=== PATIENT | female | born 1960 | race Two or more races ===

== ENCOUNTER 2021-04-03 14:00 | Outpatient (REF) | payer MEDICAID, SELFPAY ==
--- NOTE | ~2021-04-03 | US_ITS ---
EXAMINATION: US DIAGNOSTIC ULTRASOUND BREAST, LEFT CLINICAL INFORMATION: Left breast pain. COMPARISON: Mammography of same day. TECHNIQUE: Ultrasound of the breast is performed with real-time ramírez scale imaging and color Doppler. FINDINGS: Targeted left breast ultrasound does not demonstrate any abnormal mass lesion. No edematous change within the parenchyma is seen. No region of abnormal distal sound shadowing is seen. Results are discussed with the patient at time of visit. US/US breast LT limited IMPRESSION: No specific mammographic or ultrasound findings to suggest malignancy. ASSESSMENT: BI-RADS 1: Negative. RECOMMENDATION: Routine annual mammography screening.
--- NOTE | ~2021-04-03 | MM_ITS ---
EXAMINATION: MM DIAGNOSTIC DIGITAL BREAST TOMOSYNTHESIS, BILATERAL US BREAST TARGETED, LEFT CLINICAL INFORMATION: Left breast pain. The lifetime risk of breast cancer based on the Tyrer-Cuzick Model is 9.9%. COMPARISON: Mammography: None. TECHNIQUE: Digital breast tomosynthesis is performed in both the craniocaudal and mediolateral oblique views along with computer-aided detection (CAD). Synthesized 2-D images are generated from the tomosynthesis. Targeted left breast ultrasound. FINDINGS: There are scattered areas of fibroglandular density (ACR BI-RADS breast composition Category b). There are no significant masses, abnormal calcifications, or other abnormalities. Targeted left breast ultrasound does not demonstrate any abnormal mass lesion. No edematous change within the parenchyma is seen. No region of abnormal distal sound shadowing is seen. Results are discussed with the patient at time of visit. MM/MM tomosynthesis diagnostic BI IMPRESSION: No specific mammographic or ultrasound findings to suggest malignancy. ASSESSMENT: BI-RADS 1: Negative. RECOMMENDATION: Routine annual mammography screening. This patient's information was entered into a reminder system with a target due date for their next mammogram.
== END 2021-04-03 14:01 | disposition home or self-care (01) ==
LOC: HO.MAMMO 14:00
PROVIDERS: PCP Nurse Practitioner Family; Visit Provider Nurse Practitioner Family
DX: N64.4 Mastodynia (principal)
CPT/HCPCS: 76642; 77062; 77066

== ENCOUNTER 2022-01-20 10:04 | Outpatient (REF) | payer MEDICAID, SELFPAY ==
[2022-01-23 14:16] LABS: HPV mRNA E6/E7 rflx Not Detected (Not Detected)
== END 2022-01-20 10:05 | disposition home or self-care (01) ==
LOC: HO.LNP 10:04
PROVIDERS: PCP Nurse Practitioner Family; Visit Provider Obstetrics & Gynecology
DX: Z12.4 Encounter for screening for malignant neoplasm of cervix (principal); N95.0 Postmenopausal bleeding
CPT/HCPCS: 87624; 88142; 99202

== ENCOUNTER 2022-03-02 10:51 | Outpatient (REF) | payer MEDICAID, SELFPAY ==
--- NOTE | ~2022-03-02 | US_ITS ---
EXAMINATION: US PELVIS CLINICAL INFORMATION: Postmenopausal bleeding COMPARISON: None TECHNIQUE: Ultrasound of the pelvis is performed using both transabdominal and transvaginal transducers along with Doppler. Transvaginal imaging is performed due to inadequate visualization transabdominally. FINDINGS: UTERUS: The uterus is anteverted, anteflexed and measures 7.4 x 3.3 x 4.2 cm The double wall endometrial thickness is 0.6 cm. The uterus is smooth in contour and has normal myometrial echogenicity. No visible fibroid. There are small nabothian cysts seen in the cervix. ADNEXA: Both ovaries are visualized. There is normal color flow to the adnexa. There is no ovarian torsion. There is no pelvic ascites or fluid collection. Right ovary measures 1.8 x 1.3 x 1.1 cm and volume of1.4 mL. It appears unremarkable. Left ovary measures 2.1 x 1.3 x 1.2 cm and volume of 1.7 mL. There is trace amount of free fluid in the cul-de-sac. US/US pelvic and transvaginal IMPRESSION: 1. Small nabothian cysts in the cervix. 2. The uterus and ovaries are unremarkable. 3. There is trace amount of free fluid in the cul-de-sac.
== END 2022-03-02 10:52 | disposition home or self-care (01) ==
LOC: HO.US 10:51
PROVIDERS: Visit Provider Obstetrics & Gynecology
DX: N95.0 Postmenopausal bleeding (principal)
CPT/HCPCS: 76830; 76856

== ENCOUNTER 2022-04-05 14:08 | Outpatient (REF) | payer MEDICAID, SELFPAY ==
--- NOTE | ~2022-04-05 | MM_ITS ---
EXAMINATION: MM SCREENING DIGITAL BREAST TOMOSYNTHESIS, BILATERAL CLINICAL INFORMATION: Screening. Asymptomatic. The lifetime risk of breast cancer based on the Tyrer-Cuzick Model is 10%. COMPARISON: Mammography: 04/03/2021 (new baseline), ultrasound left breast 04/03/2021 TECHNIQUE: Digital breast tomosynthesis is performed in both the craniocaudal and mediolateral oblique views along with computer-aided detection (CAD). Synthesized 2D images are generated from the tomosynthesis. FINDINGS: There are scattered areas of fibroglandular density (ACR BI-RADS breast composition Category b). There is fine fibronodular parenchymal pattern. There is no significant mass and no architectural abnormality or abnormal calcifications. The axilla and skin contours are unremarkable. MM/MM tomosynthesis screening BI IMPRESSION: No mammographic evidence of malignancy. ASSESSMENT: BI-RADS 1: Negative RECOMMENDATION: Routine annual mammography screening. This patient's information was entered into a reminder system with a target due date for their next mammogram.
== END 2022-04-05 14:09 | disposition home or self-care (01) ==
LOC: HO.MAMMO 14:08
PROVIDERS: PCP Registered Nurse; Visit Provider Registered Nurse
DX: Z12.31 Encounter for screening mammogram for malignant neoplasm of breast (principal)
CPT/HCPCS: 77063; 77067

== ENCOUNTER 2022-04-13 12:34 | Outpatient (REF) | payer MEDICAID, SELFPAY | END 2022-04-13 12:35 | disposition home or self-care (01) | LOC: HO.LNP 12:34 | PROVIDERS: PCP Registered Nurse; Visit Provider Obstetrics & Gynecology | DX: N95.0 Postmenopausal bleeding (principal) | CPT/HCPCS: 58100; 81025; 88305; 99212 ==

== ENCOUNTER → 2022-05-18 14:09 | Outpatient (BNVA) | payer MEDICAID, SELFPAY | PROVIDERS: PCP Registered Nurse; Visit Provider Obstetrics & Gynecology | DX: N95.0 Postmenopausal bleeding (principal); Z98.890 Other specified postprocedural states | CPT/HCPCS: 99212 ==

== ENCOUNTER 2022-06-18 07:14 | Day surgery (SDC) | payer MEDICAID, SELFPAY ==
[2022-05-31 11:48] VITALS: BMI 31.2
[2022-06-18 07:20] VITALS: BMI 32.4
--- NOTE | 2022-06-18 07:26 | HO.ANESPROP2 ---
HPI - Anesthesia Eval Consult details Narrative: 62 yo female patient for D&C, Hysteroscopy. Poss polypectomy, poss myomectomy PMFSH Active Problems Active Problems: All Active Problems (Updated 01/20/22 @ 10:26 by Roberto Boyd MD) Postmenopausal bleeding (Acute) Past Medical History Medical History Depression HTN (hypertension) Pre-diabetes Family History Family History Mother Asthma HTN (hypertension) Diabetes Father Prostate cancer Family history of problems with anesthesia: No Surgical History Surgical History Hx of appendectomy History of Problems with Anesthesia: No Social History Social History Household Members Other:: mom Housing: Apartment Alcohol intake: never Patient Tobacco Use Status: Never used Tobacco Use of substances other than those prescribed or required for medical reasons: No Are you DNR?: No Advance Directives: No Advance Directives Information Provided: Yes Recently lost weight without trying: No Nutrition Risks: No Nutritional Risk Current occupational status: unemployed Sexual orientation: Straight/Heterosexual Gender identity: Female Meds Allergies Allergy/AdvReac Type Severity Reaction Status Date / Time apple Allergy Intermediate throat Verified 04/13/22 12:48 itching poe Allergy Unknown SWELLING Verified 04/13/22 12:48 plum [PLUM] Allergy Unknown THROAT Verified 04/13/22 12:48 SWELLING Home Medications Medication Instructions Recorded Confirmed Last Taken Type escitalopram oxalate 5 mg tablet 5 mg PO DAILY depressive disorder 01/20/22 06/18/22 Unknown History lisinopril 5 mg tablet 5 mg PO DAILY 01/20/22 06/18/22 06/18/22 History Exam Exam Date and Time: June 18, 2022 07 Height,Weight and Vital Signs: Height 5 ft 4 in Weight 85.729 kg Vital Signs Temp Pulse Resp BP Pulse Ox O2 Del Method 06/18/22 07:27 96.4 F L 86 16 159/77 H 97 Room Air Airway Mallampati Class: II TM Dist: >3cm Neck ROM: Full Loose/Missing/Broken Teeth: Yes (Broken, loose bottom right back) Heart: RRR Lungs: CTAB Assessment and Plan Assessment Anesthesia Assessment: Anesthesia Plan Discussed and Chart Reviewed Final Anesthetic Review Family History of Problems with Anesthesia: No History of Problems with Anesthesia: No NPO: Yes ASA Class: II Final Preanesthetic Review: No Changes in Pt Med Stat, Meds/Allgs Chart Reviewed, Consent Obtained/Reviewed and Anes Risks/Benef Reviewed Patient Risk: Low Procedure Risk: Low Assessment/Block/Sedation in SS: Assess/Block/Sedation-SS Anesthetic Plan Anesthetic Plan: GA Disposition: Standard PACU
[2022-06-18 07:27] VITALS: BP 159/77; PULSE 86; RESP 16; TEMP 35.8; O2SAT 97
[2022-06-18] MEDS: Lactated Ringers 1,000 ML 100 ML IVCONT (07:43)
--- NOTE | 2022-06-18 07:44 | MHC.SHP ---
Pre-Procedural Eval Section A Date of Service: 06/18/22 The patient is an INPATIENT: No Changes since office visit: No Cold of Flu in the past 2 weeks, No New Medical Problems, No Changes in Medication and No Patient answered all questions The History & Physical has been completed within 30 days and I have reviewed it.: Yes Section B Chief Complaint: Postmenopausal bleeding Allergies: Allergies Allergy/AdvReac Type Severity Reaction Status Date / Time apple Allergy Intermediate throat Verified 04/13/22 12:48 itching poe Allergy Unknown SWELLING Verified 04/13/22 12:48 plum [PLUM] Allergy Unknown THROAT Verified 04/13/22 12:48 SWELLING Plan Diagnosis/Plan: Unchanged I have reviewed the history and physical and performed a pertinent physical examination on my patient. No changes have occurred unless specified. Time Spent With Patient Time: Total time managing care of this patient today ____ minutes.
--- NOTE | 2022-06-18 09:13 | P.BOP_ITS ---
Brief Operative Note Date of Service: 06/18/22 Pre-op diagnosis: Postmenopausal bleeding Post-op diagnosis: same (Endometrial polyp) Procedure: Hysteroscopy D&C, Polypectomy Surgeon: Roberto Boyd MD Anesthesia: GLMA Was an Installation And Service Technician used for this Procedure?: No Estimated blood loss (mL): 0 Pathology: other (Endometrial Scrapping. Polyp) Condition: stable Disposition: PACU
--- NOTE | 2022-06-18 09:13 | W.PM.OPN ---
Operative Note Operative Note Date of Service: 06/18/22 Narrative: Preop Diagnosis: Postmenopausal bleeding Operation: Diagnostic Hysteroscopy, Dilataion & Curettage and polypectomy Post Op Diagnosis: Endometrial Polyp QBL: Minimal Anesthesia: GLMA Surgeon: Roberto Boyd MD Corporate Health Consultant: None Complication: None Pathology: Endometrial Scrapings, Endometrial polyp Procedure: The patient was put in the dorsal lithotomy position, scrubbed, and draped in the usual manner. A sterile speculum was inserted in the patient's vagina. The anterior lip of the cervix was grasped with a single tooth tenaculum. The cervix was dilated up to 5 mm, then the scope was inserted in the patient's uterus. Inspection revealed endometrial polyp. The Myosure Reach device was used; it was introduced through the operative channel and polypectomy done with no complications. The scope was then taken out from the uterine cavity, sharp curettings was carried on with minimal amount of tissues retrieved. At the end of the procedure, all instruments were taken out of the patient uterine and vaginal cavity. The single tooth tenaculum was removed and homeostasis was assured using pressure,. The patient tolerated the procedure well and was transferred to the PACU in a stable condition.
[2022-06-18 09:21] VITALS: BP 92/44; PULSE 77; RESP 8; TEMP 36.5; O2SAT 99
[2022-06-18 09:26] VITALS: BP 90/51; PULSE 71; RESP 10; O2SAT 99
[2022-06-18 09:31] VITALS: BP 98/59; PULSE 90; RESP 14; O2SAT 98
[2022-06-18 09:36] VITALS: BP 114/65; PULSE 76; RESP 14; TEMP 36.4; O2SAT 95
[2022-06-18] MEDS: Acetaminophen 325 MG TABLET 650 MG PO (09:42)
[2022-06-18 09:51] VITALS: BP 130/67; PULSE 79; RESP 16; TEMP 36.1; O2SAT 96
== END 2022-06-18 10:55 | disposition home or self-care (01) ==
PROVIDERS: PCP Registered Nurse; Visit Provider Obstetrics & Gynecology
PROC: 0UDB8ZZ Extraction of Endometrium, Via Natural or Artificial Opening Endoscopic (ICD-10-PCS; CPT 58558; principal; 2022-06-18 08:30)
DX: N95.0 Postmenopausal bleeding (principal); N84.0 Polyp of corpus uteri; F32.A Depression, unspecified; I10 Essential (primary) hypertension; R73.03 Prediabetes; Z79.899 Other long term (current) drug therapy
CPT/HCPCS: 58558; 88305; J1100; J2250; J2405; J3010

== ENCOUNTER → 2022-07-01 15:45 | Outpatient (BNVA) | payer MEDICAID, SELFPAY | PROVIDERS: PCP Registered Nurse; Visit Provider Obstetrics & Gynecology | DX: N95.0 Postmenopausal bleeding (principal) | CPT/HCPCS: 99212 ==

== ENCOUNTER 2023-03-08 16:19 | Emergency (ER) | payer OTHER, SELFPAY ==
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
[2023-03-08 16:32] VITALS: BP 163/74; PULSE 73; RESP 20; TEMP 36.4; O2SAT 98; BMI 32.6
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
== END 2023-03-08 20:23 | disposition left against medical advice (07) ==
PROVIDERS: Emergency Provider Emergency Medicine; PCP Registered Nurse
DX: Z04.1 Encounter for examination and observation following transport accident (principal); M25.562 Pain in left knee
CPT/HCPCS: 73560; 99281; 99283

== ENCOUNTER 2023-05-12 09:47 | Outpatient (REF) | payer MEDICAID, SELFPAY ==
[2023-05-12 12:15] LABS: Estimated Average Glucose 114 mg/dL; Hemoglobin A1c % 5.6 % (<6.0)
[2023-05-12 12:32] LABS: Alanine Aminotransferase 15 U/L (0-31); Albumin Level 4.2 g/dL (3.5-5.0); Alkaline Phosphatase 96 U/L (39-117); Anion Gap 14 (12-20); Aspartate Amino Transferase 17 U/L (5-31); Bilirubin Total 0.5 mg/dL (0.0-1.0); Blood Urea Nitrogen 11 mg/dL (9-16); Calcium 9.8 mg/dL (8.4-10.2); Carbon Dioxide 28 mmol/L (22-29); Chloride 106 mmol/L (96-108); Cholesterol 209 mg/dL (<200); Estimated Glomerular Filt Rate 54; Glucose Random 99 mg/dL (60-115); HDL Cholesterol 47 mg/dL (>40); LDL Cholesterol Calculated 140 mg/dL (<100); Potassium 4.7 mmol/L (3.3-5.1); Sodium 143 mmol/L (135-145); Total Protein 7.7 g/dL (6.5-8.0); Triglycerides 110 mg/dL (<150)
== END 2023-05-12 09:48 | disposition home or self-care (01) ==
LOC: HO.HHCL 09:47
PROVIDERS: Visit Provider Registered Nurse
DX: I10 Essential (primary) hypertension (principal); R73.03 Prediabetes
CPT/HCPCS: 36415; 80053; 80061; 83036

== ENCOUNTER 2023-05-30 09:18 | Outpatient (REF) | payer MEDICAID, SELFPAY ==
--- NOTE | ~2023-05-30 | XR_ITS ---
EXAMINATION: XR FOOT, LEFT CLINICAL INFORMATION: Left foot pain over the heel for 6 months COMPARISON: None available. TECHNIQUE: AP, lateral, and oblique views of the left foot. FINDINGS: BONES: Bony structures are intact. There is no focal bone destruction or periosteal reaction seen. JOINTS: There is moderate hallux valgus valgus deformity. The left first metatarsophalangeal angle is 21 degrees.. SOFT TISSUE: Soft tissue is normal. No radiopaque foreign body or abnormal air collection is seen. XR/XR foot LT min 3V IMPRESSION: 1. Moderate hallux valgus deformity. 2. No focal bone destruction or periosteal reaction is seen.
== END 2023-05-30 09:19 | disposition home or self-care (01) ==
LOC: HO.HHCX 09:18
PROVIDERS: Visit Provider Registered Nurse
DX: M79.672 Pain in left foot (principal)
CPT/HCPCS: 73630

== ENCOUNTER 2023-06-06 14:31 | Outpatient (REF) | payer MEDICAID, SELFPAY ==
--- NOTE | ~2023-06-06 | XR_ITS ---
EXAMINATION: XR LUMBAR SPINE XR KUB CLINICAL INFORMATION: Pain. Evaluate for kidney stone. Right flank pain worsening over last 3 days. COMPARISON: Renal ultrasound from 04/20/2019. TECHNIQUE: Lumbar spine, 3 views KUB, one view FINDINGS: LUMBAR SPINE: There are six nonrib-bearing vertebra of the lumbar spine. For purposes of this report, the lowest lumbar vertebra is considered to represent L5. There is facet arthropathy of L4-L5 and L5-S1 (worst on the right at L4-L5). There is mild multilevel degenerative disc space narrowing with small vertebral osteophytes of the lumbar spine, including L2-L3, L3-L4 and L4-L5. Also, there is approximately 0.2 cm of degenerative anterolisthesis of L4 on L5. Otherwise, lumbar vertebra have normal height and alignment. No vertebral compression fractures. Sacroiliac joints and sacrum are unremarkable. KUB: Bowel gas pattern is normal. No pneumoperitoneum. No evidence of renal calculi. Several small calcifications are seen within the lower pelvis. These appear to correspond to the phleboliths present on CT images from 09/11/2018. No suspicious osseous lesions. Surgical clips are seen within the right lower quadrant of the abdomen. XR/XR lumbar spine 2-3V IMPRESSION: * No evidence of renal calculi. * Normal bowel gas pattern. * Mild multilevel discovertebral degenerative change of the lumbar spine. * Facet arthropathy of the lower lumbar spine is worst on the right at L4-L5.
--- NOTE | ~2023-06-06 | XR_ITS ---
EXAMINATION: XR LUMBAR SPINE XR KUB CLINICAL INFORMATION: Pain. Evaluate for kidney stone. Right flank pain worsening over last 3 days. COMPARISON: Renal ultrasound from 04/20/2019. TECHNIQUE: Lumbar spine, 3 views KUB, one view FINDINGS: LUMBAR SPINE: There are six nonrib-bearing vertebra of the lumbar spine. For purposes of this report, the lowest lumbar vertebra is considered to represent L5. There is facet arthropathy of L4-L5 and L5-S1 (worst on the right at L4-L5). There is mild multilevel degenerative disc space narrowing with small vertebral osteophytes of the lumbar spine, including L2-L3, L3-L4 and L4-L5. Also, there is approximately 0.2 cm of degenerative anterolisthesis of L4 on L5. Otherwise, lumbar vertebra have normal height and alignment. No vertebral compression fractures. Sacroiliac joints and sacrum are unremarkable. KUB: Bowel gas pattern is normal. No pneumoperitoneum. No evidence of renal calculi. Several small calcifications are seen within the lower pelvis. These appear to correspond to the phleboliths present on CT images from 09/11/2018. No suspicious osseous lesions. Surgical clips are seen within the right lower quadrant of the abdomen. XR/XR KUB IMPRESSION: * No evidence of renal calculi. * Normal bowel gas pattern. * Mild multilevel discovertebral degenerative change of the lumbar spine. * Facet arthropathy of the lower lumbar spine is worst on the right at L4-L5.
== END 2023-06-06 14:32 | disposition home or self-care (01) ==
LOC: HO.HHCX 14:31
PROVIDERS: Visit Provider Internal Medicine
DX: M54.50 Low back pain, unspecified (principal); R35.0 Frequency of micturition; R10.9 Unspecified abdominal pain
CPT/HCPCS: 72100; 74018; 87086

== ENCOUNTER 2023-06-22 17:57 | Outpatient (REF) | payer MEDICAID, SELFPAY ==
[2023-06-22 18:41] LABS: Appearance Urine Clear; Color Urine Yellow; Glucose Urine UA Negative (Negative); Leukocyte Esterase Urine Small (1+) (Negative); Nitrite Urine Negative (Negative); PH 5.5 (5.0-9.0); Specific Gravity - Urine <= 1.005 (1.005-1.025); UMIC TRIGGER UACC YES; Urine Blood Negative (Negative); Urine Ketones Negative (Negative); Urine Protein Negative (Neg-Trace)
[2023-06-22 18:47] LABS: Bacteria Urine None Seen (None Seen); Hyaline Casts Urine 0-2 /LPF (0-2); RBC Urine 0-2 /HPF (0-2); UACC Culture Trigger YES
[2023-06-23 15:42] LABS: BV Int Neg Control Negative (Negative); BV Int Pos Control Positive (Positive)
== END 2023-06-22 17:58 | disposition home or self-care (01) ==
LOC: HO.HHCLNP 17:57
PROVIDERS: Visit Provider Registered Nurse
DX: R31.9 Hematuria, unspecified (principal)
CPT/HCPCS: 81001; 87086; 87480; 87510; 87660

== ENCOUNTER 2023-07-04 14:03 | Outpatient (REF) | payer MEDICAID, SELFPAY | END 2023-07-04 14:04 | disposition home or self-care (01) | LOC: HO.MAMMO 14:03 | PROVIDERS: PCP Registered Nurse; Visit Provider Registered Nurse | DX: Z12.31 Encounter for screening mammogram for malignant neoplasm of breast (principal) | CPT/HCPCS: 77063; 77067 ==

== ENCOUNTER → 2023-07-04 14:30 | Outpatient (BNV) | payer MEDICAID, SELFPAY | PROVIDERS: PCP Registered Nurse; Visit Provider Radiology Diagnostic Radiology | DX: Z12.31 Encounter for screening mammogram for malignant neoplasm of breast (principal) | CPT/HCPCS: 77063; 77067 ==

== ENCOUNTER 2023-07-26 13:00 | Outpatient (RCR) | payer MEDICAID, SELFPAY | END 2023-08-26 10:18 | disposition home or self-care (01) | LOC: HO.PT 13:00 | PROVIDERS: PCP Registered Nurse; Visit Provider Registered Nurse | DX: M25.551 Pain in right hip (principal) | CPT/HCPCS: 97110; 97162 ==

== ENCOUNTER 2023-09-15 10:30 | Outpatient (AMB) | payer MEDICAID, SELFPAY ==
--- NOTE | 2023-09-15 10:35 | A.OFFVIS_ITS ---
Vital Signs 09/15/23 10:42 Height 5 ft 4 in Weight 196 lb 10.437 oz BMI 33.8 BP 160/76 H Blood Pressure Location Lt brachial Position Sitting Pulse 78 Intake Visit Reasons: Colonoscopy Screening Intake Note: Patient in office today for colonoscopy screening. CC: Last colonoscopy when patient was about 39 y/o. Patient c/o constipation currently taking Miralax but she states that it does not work too well. She also reports seeing blood in the stool. 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 She is referred by [facility]. PMX Hypertension Depression with anxiety Pre diabetes FOOD ALLERGIES * SURGICAL HISTORY Appendectomy * ALLERGIES NKDA * [employer] LABS: Laboratory Tests 05/12/23 09:48 Estimated GFR 54 Total Bilirubin 0.5 AST 17 ALT 15 Alkaline Phosphatase 96 TODAY'S VISIT She had a colonoscopy > 10 years ago and it was negative. 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 She has used Miralax but it does not work well. Pill laxatives cause N/V and severe cramping - suppositories also causes cramping. White bread and rice constipates her as well as eating a lot of meat. She does eat salads and broccoli and cauliflower about 3 times a week and fruit. She has never tried a fiber supplement. She drinks mostly coffee and iced tea and 4 16oz bottles of water a day. She drinks 3 coffee a day and 2-3 teas. No upper Gi problems. She was always skinny but gained over 30# over the past 5 years. She has not had any thyroid testing that she knows. There are no prior problems with anesthesia or sedation. She only has some seasonal allergies and no cardiac problems. No ID problems. Start Linzess 145mcg and titrate. Her mother suffered CIC as well. There is no known fHX crc or polyps. [facility] Medical History Pre-diabetes Depression HTN (hypertension) Surgical History H/O colonoscopy Hx of appendectomy Family History Mother Asthma HTN (hypertension) Diabetes Father Prostate cancer Paternal Aunt Breast cancer Paternal Aunt Breast cancer Social History Household Members Other:: mom Housing: Apartment Alcohol intake: never Comment: medicated in OR with ketorolac and po tylenol Patient Tobacco Use Status: Never used Tobacco Current occupational status: unemployed Sexual orientation: Straight/Heterosexual Gender identity: Female Review of Systems Const Denies fatigue, Denies fever(s), Reports increased appetite, Denies night sweats, Denies poor appetite, Reports weight gain and Denies weight loss ENT Reports Normal hearing present, Denies dental pain, Denies dysphagia, Denies hearing loss, Denies mouth pain, Denies odynophagia, Denies throat swelling, Denies tongue swelling and Reports other (Dentition adequate) Card Reports no additional complaints Resp Reports no additional complaints GI Details: she has external roids Denies abdominal pain, Denies melena, Denies bloating, Reports hematochezia, Reports constipation, Denies GI cramping, Denies dysphagia, Denies excessive flatus, Denies early satiety, Denies heartburn, Denies diarrhea, Denies nausea, Denies odynophagia, Denies vomiting and Denies hematemesis Skin/Breast Denies pruritus, Denies lesions, Denies rash and Denies jaundice Neuro Reports Normal hearing present and Denies Abnormal speech present Endo Denies fatigue Aller/Immun Denies throat swelling and Denies tongue swelling Physical Exam Vital Signs: Last Vital Signs Pulse 78 09/15/23 10:42 BP 160/76 H 09/15/23 10:42 BMI result Body Mass Index 33.8 Const General: cooperative, no acute distress, well developed and well groomed Nutritional Appearance: well nourished and obese Orientation/consciousness: oriented to person, oriented to place and oriented to time Limitations: No language barrier HEENT Head: Yes normocephalic and Yes atraumatic Eyes General: appearance normal, both eyes and all related structures Pupils: Equal, round and reactive pupils present Neck Neck: Yes normal visual inspection and Yes no lymphadenopathy Thyroid: Thyroid normal Resp Effort & Inspection: normal respiratory effort and able to speak in complete sentences Auscultation: clear to auscultation bilaterally Cardio Rate: regular rate Rhythm: regular rhythm Heart sounds: Normal, physiologic split S2 sound present Peripheral pulses: radial pulses present and posterior tibial pulses present GI Inspection: No distended, No Abdominal panniculus present and Yes obesity Palpation (GI): Soft to palpation, nontender, no guarding, not rigid and No hepatosplenomegaly present Percussion: Yes normal to percussion Auscultation: Hypoactive bowel sounds present Rectal Exam - Female: deferred Skin General skin exam: no rashes or lesions noted, turgor normal, skin not dry, no jaundice, No spider nevi and no striae Rashes: no rashes Nails: normal Neuro General: oriented to person, oriented to place and oriented to time Cranial nerves: Yes Equal, round and reactive pupils present and Yes Normal hearing present Speech: No Abnormal speech present Extrem General: Yes normal to inspection, No clubbing, No cyanosis and No edema Psych Appearance: grossly normal and well kempt Mental Status: mental status grossly normal Speech and movement: Normal speech and movement present Affect: normal affect Attitude: cooperative Thought process: Normal thought process present and not confabulating Thought content: Normal thought content present Insight: Limited insight present (Psych) Judgement: Limited judgement present (Psych) Assessment & Plan Assessment & Plan (1) Pre-op examination: Code(s): Z01.818 - Encounter for other preprocedural examination Category: Medical (2) Chronic idiopathic constipation: Code(s): K59.04 - Chronic idiopathic constipation Category: Medical Plan She had a colonoscopy > 10 years ago and it was negative. 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 She has used Miralax but it does not work well. Pill laxatives cause N/V and severe cramping - suppositories also causes cramping. White bread and rice constipates her as well as eating a lot of meat. She does eat salads and broccoli and cauliflower about 3 times a week and fruit. She has never tried a fiber supplement. She drinks mostly coffee and iced tea and 4 16oz bottles of water a day. She drinks 3 coffee a day and 2-3 teas. No upper Gi problems. She was always skinny but gained over 30# over the past 5 years. She has not had any thyroid testing that she knows. There are no prior problems with anesthesia or sedation. She only has some seasonal allergies and no cardiac problems. No ID problems. Start Linzess 145mcg and titrate. Her mother suffered CIC as well. There is no known fHX crc or polyps. Orders: Orders Colonoscopy - GI Use Only Today Z01.818 - Encounter for other preprocedural examination Transglutaminase IgA Today K59.04 - Chronic idiopathic constipation Transglutaminase Ab IgG Today K59.04 - Chronic idiopathic constipation Complete Blood Count Auto Diff Today K59.04 - Chronic idiopathic constipation TSH reflex Free T4 Today K59.04 - Chronic idiopathic constipation Hemoglobin A1c Today K59.04 - Chronic idiopathic constipation Medications: New bisacodyl (Dulcolax (bisacodyl)) 10 mg (2 x 5 mg) PO BEDTIME 4 tabs 0RF 2 days peg 3350-electrolytes 236-22.74-6.74 -5.86 gram (Golytely) until fecal effluent is clear; do not exceed a total volume of 2,000 mL 240 mL PO Q10M 4,000 mL 0RF 1 day Z12.11 - Encounter for screening for malignant neoplasm of colon linaclotide (Linzess) Take first thing in the morning with a full glass of water. 145 mcg PO QAM 30 caps 3RF K58.1 - Irritable bowel syndrome with constipation Coding Level of Care Code New Pt Level 3 (67340) Diagnoses Pre-op examination Z01.818 Chronic idiopathic constipation K59.04
[2023-09-15 10:42] VITALS: BP 160/76; PULSE 78; BMI 33.8
== END 2023-09-15 11:20 | disposition home or self-care (01) ==
PROVIDERS: PCP Registered Nurse; Visit Provider Nurse Practitioner
DX: Z01.818 Encounter for other preprocedural examination (principal); K59.04 Chronic idiopathic constipation
CPT/HCPCS: 99203

== ENCOUNTER → 2023-09-15 10:30 | Outpatient (BNVA) | payer MEDICAID, SELFPAY | PROVIDERS: PCP Registered Nurse; Visit Provider Nurse Practitioner | DX: Z12.11 Encounter for screening for malignant neoplasm of colon (principal); K59.04 Chronic idiopathic constipation | CPT/HCPCS: 99212 ==

== ENCOUNTER 2023-09-21 12:09 | Outpatient (REF) | payer MEDICAID, SELFPAY ==
[2023-09-21 13:56] LABS: Cholesterol 206 mg/dL (<200); HDL Cholesterol 50 mg/dL (>40); LDL Cholesterol Calculated 129 mg/dL (<100); Triglycerides 139 mg/dL (<150)
[2023-09-21 14:14] LABS: Free T4 (Free Thyroxine) 0.88 ng/dL (0.71-1.85); Thyroid Stimulating Hormone 0.89 uIU/mL (0.32-4.0); Vitamin D 25-OH Total 20.1 ng/mL (>30)
== END 2023-09-21 12:10 | disposition home or self-care (01) ==
LOC: HO.HHCL 12:09
PROVIDERS: Visit Provider Registered Nurse
DX: E78.2 Mixed hyperlipidemia (principal)
CPT/HCPCS: 36415; 80061; 82306; 84439; 84443

== ENCOUNTER 2023-09-28 09:06 | Outpatient (REF) | payer MEDICAID, SELFPAY ==
--- NOTE | ~2023-09-28 | XR_ITS ---
EXAMINATION: XR HIP, RIGHT CLINICAL INFORMATION: Pain in right hip. COMPARISON: Lumbar spine 06/06/2023. TECHNIQUE: AP view of the pelvis and frog-lateral view of the right hip. FINDINGS: Surgical clips right lower quadrant. Mild osteoarthritic changes on single AP view of the left hip. Sclerotic focus overlying the left greater trochanter possibly representing a bony lesion such as a bone island versus soft tissue calcification. Pubic symphysis is maintained. Degenerative changes in the imaged lower lumbar spine. Mild osteoarthritic changes right hip. Alignment preserved. XR/XR hip RT min 2V IMPRESSION: 1. Mild osteoarthritic changes in the bilateral hips. 2. Sclerotic focus overlying the left greater trochanter possibly representing a bone lesion such as a bone island versus soft tissue calcification.
== END 2023-09-28 09:07 | disposition home or self-care (01) ==
LOC: HO.HOSX 09:06
PROVIDERS: Visit Provider Orthopaedic Surgery
DX: M25.551 Pain in right hip (principal); M54.50 Low back pain, unspecified; M79.604 Pain in right leg; M79.605 Pain in left leg
CPT/HCPCS: 73502; 99202

== ENCOUNTER 2023-09-28 11:31 | Outpatient (AMB) | payer MEDICAID, SELFPAY ==
--- NOTE | 2023-09-28 11:40 | A.OFFVIS_ITS ---
Intake Visit Reasons: New Pt - Right Hip Pain, Low back pain Intake Note: Amna is a 63 year old female who presents to the office today for a new patient visit for right hip pain as well as progressively worsening low back pain which radiates down her right leg. The patient states that her symptoms have gotten w orse over the last 6 months in spite of going to formal physical therapy. She has also tried Tylenol and anti-inflammatory medicines which gave her minimal relief. She has completed therapy. She states that at times her low back pain will radiate down both of her legs, right greater than left. She also reports intermittent weakness in her right leg. She states that most of her right hip pain is along the posterior aspect of her hip. She denies any groin pain. Allergies apple Allergy (Intermediate, Verified 09/28/23 11:40) throat itching poe Allergy (Unknown, Verified 09/28/23 11:40) SWELLING No Known Drug Allergies Allergy (Unknown, Verified 09/28/23 11:40) none plum [PLUM] Allergy (Unknown, Verified 09/28/23 11:40) THROAT SWELLING Medication List - Last Reconciled 09/28/23 by Richie Enciso MD amlodipine 10 mg PO QAM bisacodyl (Dulcolax (bisacodyl)) 10 mg (2 x 5 mg) PO BEDTIME 2 days escitalopram oxalate 5 mg PO DAILY linaclotide (Linzess) 145 mcg PO QAM peg 3350-electrolytes 236-22.74-6.74 -5.86 gram (Golytely) 240 mL PO Q10M 1 day PFSH Medical History Pre-diabetes Depression HTN (hypertension) Surgical History H/O colonoscopy Hx of appendectomy Family History Mother Asthma HTN (hypertension) Diabetes Father Prostate cancer Paternal Aunt Breast cancer Paternal Aunt Breast cancer Social History Household Members Other:: mom Housing: Apartment Alcohol intake: never Comment: medicated in OR with ketorolac and po tylenol Patient Tobacco Use Status: Never used Tobacco Current occupational status: unemployed Sexual orientation: Straight/Heterosexual Gender identity: Female Physical Exam Const Other: Well-nourished well-developed very friendly female awake alert and oriented x3 in no acute distress Back/Spine/Pelvis Other: Low back examination shows right-sided paraspinal muscle tenderness, pain with range of motion, positive straight leg raise test on the right at 70 degrees, 4/5 strength with testing of her right hip flexors and knee extensors when compared to 5/5 strength on her left side Extrem Other: Bilateral lower extremity examination shows good capillary refill, no skin lesions noted, normal sensation light touch Right hip examination shows full range of motion when compared to her left hip, minimal discomfort with range of motion, mild tenderness over her bursa Results Reviewed Results Reviewed: X-rays of the patient's right hip taken today show minimal joint space narrowing, no acute bony abnormalities Assessment & Plan Assessment & Plan (1) Low back pain radiating to both legs: Code(s): M54.50 - Low back pain, unspecified; M79.604 - Pain in right leg; M79.605 - Pain in left leg Category: Medical Plan Ms. Aldo Toussaint presents with progressively worsening low back pain which radiates down her right leg and associated right leg weakness most likely due to lumbar stenosis or a disc herniation. Thus, I will send the patient for an MRI of her lumbar spine for further evaluation. She also has right hip discomfort most likely due to greater trochanteric bursitis. We will hold off on a cortisone injection for now. I will see her back after the MRI is completed to discuss the findings. Feel free to call me at any time should questions regarding her orthopedic management arise. Thank you very much for asking me to see this very friendly patient. I spent 20 minutes in reviewing the patient's records and imaging studies, seeing the patient and documenting in the medical record. Orders: Orders XR hip RT min 2V Today M25.551 - Pain in right hip MR lumbar spine wo con Today M54.50 - Low back pain, unspecified, M79.604 - Pain in right leg, M79.605 - Pain in left leg Coding Level of Care Code New Pt Level 3 (87708) Diagnoses Low back pain radiating to both legs M54.50; M79.604; M79.605
== END 2023-09-28 12:19 | disposition home or self-care (01) ==
PROVIDERS: PCP Registered Nurse; Referring Provider Registered Nurse; Visit Provider Orthopaedic Surgery
DX: M54.50 Low back pain, unspecified (principal); M79.604 Pain in right leg; M79.605 Pain in left leg
CPT/HCPCS: 99203

== ENCOUNTER 2023-10-17 10:07 | Outpatient (REF) | payer MEDICAID, SELFPAY ==
[2023-10-17 10:48] LABS: MANUAL DIFF FLAG NO
[2023-10-17 11:03] LABS: Basophils Percent Auto 0.4 % (0-2); Eosinophils Absolute Auto 0.1 X10*3/uL (0.0-0.4); Eosinophils Percent Auto 1.7 % (0-4); Hemoglobin 13.9 g/dl (12.0-16.0); Imm Gran Abs Auto 0.01 X10*3/uL (0.00-0.03); Imm Gran Pct Auto 0.1 % (0.0-0.4); Lymphocytes Absolute Auto 2.3 X10*3/uL (1.2-4.9); Lymphocytes Percent Auto 32.6 % (20-40); Mean Corpuscular HGB Conc 33.1 g/dl (31.0-35.0); Mean Corpuscular Hemoglobin 30.1 pg (27.0-33.0); Mean Corpuscular Volume 90.9 fL (80.0-98.0); Mean Platelet Volume 10.8 fL (9.4-12.3); Monocytes Absolute Auto 0.4 X10*3/uL (0.1-1.2); Monocytes Percent Auto 6.1 % (2-11); Neutrophils Absolute Auto 4.2 x10*3/uL (2.0-8.3); Neutrophils Percent Auto 59.1 % (45-73); Platelet Count 222 X10*3/uL (160-400); Red Blood Count 4.62 X10*6/uL (4.20-5.50); Red Cell Distribution Width 13.1 % (11.0-16.0); White Blood Count 7.1 X10*3/uL (4.8-10.8)
[2023-10-17 11:18] LABS: Estimated Average Glucose 123 mg/dL; Hemoglobin A1C 151.5573 umol/L; Hemoglobin A1c % 5.9 % (<6.0)
[2023-10-18 20:18] LABS: Transglutaminase Ab IgG <1.0 U/mL; Transglutaminase IgA <1.0 U/mL
== END 2023-10-17 10:08 | disposition home or self-care (01) ==
LOC: HO.LAB 10:07
PROVIDERS: Visit Provider Nurse Practitioner
DX: K59.04 Chronic idiopathic constipation (principal)
CPT/HCPCS: 36415; 83036; 84443; 85025; 86364

== ENCOUNTER 2023-11-16 09:58 | Outpatient (AMB) | payer MEDICAID, SELFPAY ==
[2023-11-16 10:10] VITALS: BMI 33.8
--- NOTE | 2023-11-16 10:10 | A.OFFVIS_ITS ---
Vital Signs 11/16/23 10:10 Height 5 ft 4 in Weight 196 lb 10.437 oz BMI 33.8 Intake Visit Reasons: 4 weeks f/u labs Intake Note: Patient in office today in 4 weeks follow up of CIC and labs. CC: Patient states that she did not start the Linzess because she was not sure which medications was the bowel prep for colonoscopy. She c/o constipation, abdominal pain, rectal bleeding, and lower back pain. Funeral Professional Required: No Accompanied by: Self / Same As Patient Allergies apple Allergy (Intermediate, Verified 11/16/23 10:18) throat itching poe Allergy (Unknown, Verified 11/16/23 10:18) SWELLING No Known Drug Allergies Allergy (Unknown, Verified 11/16/23 10:18) none plum [PLUM] Allergy (Unknown, Verified 11/16/23 10:18) THROAT SWELLING HPI HPI 4 weeks f/u labs: Details: Assessment & Plan (1) Pre-op examination: Code(s): Z01.818 - Encounter for other preprocedural examination Category: Medical (2) Chronic idiopathic constipation: Code(s): K59.04 - Chronic idiopathic constipation Category: Medical Plan She had a colonoscopy > 10 years ago and it was negative. 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 She has used Miralax but it does not work well. Pill laxatives cause N/V and severe cramping - suppositories also causes cramping. White bread and rice constipates her as well as eating a lot of meat. She does eat salads and broccoli and cauliflower about 3 times a week and fruit. She has never tried a fiber supplement. She drinks mostly coffee and iced tea and 4 16oz bottles of water a day. She drinks 3 coffee a day and 2-3 teas. No upper Gi problems. She was always skinny but gained over 30# over the past 5 years. She has not had any thyroid testing that she knows. There are no prior problems with anesthesia or sedation. She only has some seasonal allergies and no cardiac problems. No ID problems. Start Linzess 145mcg and titrate. Her mother suffered CIC as well. There is no known fHX crc or polyps. Orders: Orders Colonoscopy - GI Use Only Today Z01.818 - Encounter for other preprocedural examination Transglutaminase IgA Today K59.04 - Chronic idiopathic constipation Transglutaminase Ab IgG Today K59.04 - Chronic idiopathic constipation Complete Blood Count Auto Diff Today K59.04 - Chronic idiopathic constipation TSH reflex Free T4 Today K59.04 - Chronic idiopathic constipation Hemoglobin A1c Today K59.04 - Chronic idiopathic constipation Medications: New bisacodyl (Dulcolax (bisacodyl)) 10 mg (2 x 5 mg) PO BEDTIME 4 tabs 0RF 2 days peg 3350-electrolytes 236-22.74-6.74 -5.86 gram (Golytely) until fecal effluent is clear; do not exceed a total volume of 2,000 mL 240 mL PO Q10M 4,000 mL 0RF 1 day Z12.11 - Encounter for screening for malignant neoplasm of colon linaclotide (Linzess) Take first thing in the morning with a full glass of water. 145 mcg PO QAM 30 caps 3RF K58.1 - Irritable bowel syndrome with constipation LABS: Laboratory Tests 09/21/23 10/17/23 12:12 10:47 WBC 7.1 Hgb 13.9 Hct 42.0 Hemoglobin A1c % 5.9 TSH 1.10 Free T4 0.88 Tiss Transglutamin IgG <1.0 Tiss Transglutamin IgA <1.0 COLONOSCOPY SCHEDULED FOR 02/09/2024 BIOPSY TODAY'S VISIT She was confused between the Linzess and the prep sent so she has not taken it because she thought it was for the colonoscopy. I explained to her which pill it is an write it down for her so she can try it. She continues to have pain across the lower abdomen that radiates to the back and is not moving her bowels well. We reviewed the labs and there is no reason to suspect that uncontrolled diabetes thyroid disorder or acute infection is to blame for her pain. She is aware of her colonoscopy date Return office visit in 4 weeks to evaluate titrate the Linzess. [facility] Medical History Pre-diabetes Depression HTN (hypertension) Surgical History H/O colonoscopy Hx of appendectomy Family History Mother Asthma HTN (hypertension) Diabetes Father Prostate cancer Paternal Aunt Breast cancer Paternal Aunt Breast cancer Social History Household Members Other:: mom Housing: Apartment Alcohol intake: never Comment: medicated in OR with ketorolac and po tylenol Patient Tobacco Use Status: Never used Tobacco Current occupational status: unemployed Sexual orientation: Straight/Heterosexual Gender identity: Female Review of Systems Const Denies fatigue, Denies fever(s), Denies night sweats, Denies poor appetite and Denies weight loss ENT Reports Normal hearing present, Denies dental pain, Denies dysphagia, Denies hearing loss, Denies mouth pain, Denies odynophagia, Denies throat swelling, Denies tongue swelling and Reports other (Dentition adequate) Card Reports no additional complaints Resp Reports no additional complaints GI Details: Reports abdominal pain, Denies melena, Denies bloating, Denies hematochezia, Reports constipation, Denies GI cramping, Denies dysphagia, Denies excessive flatus, Denies early satiety, Denies heartburn, Denies diarrhea, Denies nausea, Denies odynophagia, Denies vomiting and Denies hematemesis Skin/Breast Denies pruritus, Denies lesions, Denies rash and Denies jaundice Neuro Reports Normal hearing present and Denies Abnormal speech present Endo Denies fatigue Aller/Immun Denies throat swelling and Denies tongue swelling Physical Exam Vital Signs: BMI result Body Mass Index 33.8 Const General: cooperative, no acute distress, well developed and well groomed Nutritional Appearance: well nourished and obese Orientation/consciousness: oriented to person, oriented to place and oriented to time Limitations: No language barrier HEENT Head: Yes normocephalic and Yes atraumatic Eyes General: appearance normal, both eyes and all related structures Pupils: Equal, round and reactive pupils present Neck Neck: Yes normal visual inspection and Yes no lymphadenopathy Thyroid: Thyroid normal Resp Effort & Inspection: normal respiratory effort and able to speak in complete sentences Auscultation: clear to auscultation bilaterally Cardio Rate: regular rate Rhythm: regular rhythm Heart sounds: Normal, physiologic split S2 sound present Peripheral pulses: radial pulses present and posterior tibial pulses present GI Inspection: No distended, Yes Abdominal panniculus present and Yes obesity Palpation (GI): Soft to palpation, Tenderness to palpation present (GI) in the LUQ, no guarding, not rigid and No hepatosplenomegaly present Percussion: Yes normal to percussion Auscultation: normal bowel sounds Rectal Exam - Female: deferred Back/Spine/Pelvis Back: back tenderness Skin General skin exam: no rashes or lesions noted, turgor normal, skin not dry, no jaundice, No spider nevi and no striae Rashes: no rashes Nails: normal Neuro General: oriented to person, oriented to place and oriented to time Cranial nerves: Yes Equal, round and reactive pupils present and Yes Normal hearing present Speech: No Abnormal speech present Extrem General: Yes normal to inspection, No clubbing, No cyanosis and No edema Psych Appearance: grossly normal and well kempt Mental Status: mental status grossly normal Speech and movement: Normal speech and movement present Affect: normal affect Attitude: cooperative Thought process: Normal thought process present and not confabulating Thought content: Normal thought content present Insight: Limited insight present (Psych) Judgement: Limited judgement present (Psych) Results Reviewed Results Reviewed: Laboratory Tests 09/21/23 10/17/23 12:12 10:47 WBC 7.1 Hgb 13.9 Hct 42.0 Hemoglobin A1c % 5.9 TSH 1.10 Free T4 0.88 Tiss Transglutamin IgG <1.0 Tiss Transglutamin IgA <1.0 Assessment & Plan Assessment & Plan (1) Chronic idiopathic constipation: Code(s): K59.04 - Chronic idiopathic constipation Category: Medical (2) Abdominal pain: Code(s): R10.9 - Unspecified abdominal pain Category: Medical Plan She was confused between the Linzess and the prep sent so she has not taken it because she thought it was for the colonoscopy. I explained to her which pill it is an write it down for her so she can try it. She continues to have pain across the lower abdomen that radiates to the back and is not moving her bowels well. We reviewed the labs and there is no reason to suspect that uncontrolled diabetes thyroid disorder or acute infection is to blame for her pain. She is aware of her colonoscopy date Return office visit in 4 weeks to evaluate titrate the Linzess. COLONOSCOPY SCHEDULED FOR 02/09/2024 BIOPSY Medications: Refilled linaclotide (Linzess) Take first thing in the morning with a full glass of water. 145 mcg PO QAM 30 caps 3RF K58.1 - Irritable bowel syndrome with constipation Coding Level of Care Code Est Pt Level 3 (47335) Diagnoses Chronic idiopathic constipation K59.04 Abdominal pain R10.9
== END 2023-11-16 10:45 | disposition home or self-care (01) ==
PROVIDERS: PCP Registered Nurse; Visit Provider Nurse Practitioner
DX: K59.04 Chronic idiopathic constipation (principal); R10.9 Unspecified abdominal pain
CPT/HCPCS: 99213

== ENCOUNTER → 2023-11-16 09:58 | Outpatient (BNVA) | payer MEDICAID, SELFPAY | PROVIDERS: PCP Registered Nurse; Visit Provider Nurse Practitioner | DX: K59.04 Chronic idiopathic constipation (principal); R10.9 Unspecified abdominal pain | CPT/HCPCS: 99212 ==

== ENCOUNTER 2024-02-09 07:49 | Day surgery (SDC) | payer MEDICARE, MEDICAID, SELFPAY ==
--- NOTE | 2024-02-07 10:21 | HO.ANESPROP2 ---
HPI - Anesthesia Eval Consult details Narrative: 64yo F for Colonoscopy PMFSH Active Problems Active Problems: All Active Problems Abdominal pain (Acute) Low back pain radiating to both legs (Acute) Right hip pain (Acute) Left hip pain (Acute) Chronic idiopathic constipation (Acute) Pre-op examination (Acute) Depression with anxiety (Acute) Multiple food allergies (Acute) Postmenopausal bleeding (Acute) Past Medical History Medical History Pre-diabetes Depression HTN (hypertension) Family History Family History Mother Asthma HTN (hypertension) Diabetes Father Prostate cancer Paternal Aunt Breast cancer Paternal Aunt Breast cancer Family history of problems with anesthesia: No Surgical History Surgical History H/O colonoscopy Hx of appendectomy History of Problems with Anesthesia: No Social History Social History Household Members Other:: mom Housing: Apartment Alcohol intake: never Comment: medicated in OR with ketorolac and po tylenol Patient Tobacco Use Status: Never used Tobacco Current occupational status: unemployed Sexual orientation: Straight/Heterosexual Gender identity: Female Meds Allergies Allergy/AdvReac Type Severity Reaction Status Date / Time apple Allergy Intermediate throat Verified 02/09/24 09:03 itching poe Allergy Unknown SWELLING Verified 02/09/24 09:03 No Known Drug Allergies Allergy Unknown none Verified 02/09/24 09:03 plum [PLUM] Allergy Unknown THROAT Verified 02/09/24 09:03 SWELLING Home Medications ?Medication ?Instructions ?Recorded ?Confirmed ?Last Taken ?Type escitalopram oxalate 5 mg tablet 5 mg PO DAILY depressive disorder 01/20/22 02/09/24 Unknown History amlodipine 5 mg tablet 10 mg PO QAM 09/15/23 02/09/24 Unknown History rosuvastatin 10 mg tablet 10 mg PO QAM 11/16/23 02/09/24 Unknown History Assessment and Plan Assessment Anesthesia Assessment: Chart Reviewed Final Anesthetic Review Family History of Problems with Anesthesia: No History of Problems with Anesthesia: No
[2024-02-09 09:02] VITALS: BMI 32.8
[2024-02-09 09:16] VITALS: BP 156/82; PULSE 67; RESP 16; TEMP 36.5; O2SAT 97
--- NOTE | 2024-02-09 09:18 | MHC.SHP ---
Pre-Procedural Eval Section A - 24 Hr Update-Section A only Date of Service: 02/09/24 Section B - Complete if H&P > 30 days Chief Complaint: abd pain, rectal bleeding Details of Present Illness: Pre-diabetes Depression HTN (hypertension) Surgical History H/O colonoscopy Hx of appendectomy Present Medications: see Short Stay Collaborative assessment Allergies: Allergies Allergy/AdvReac Type Severity Reaction Status Date / Time apple Allergy Intermediate throat Verified 02/09/24 09:03 itching poe Allergy Unknown SWELLING Verified 02/09/24 09:03 No Known Drug Allergies Allergy Unknown none Verified 02/09/24 09:03 plum [PLUM] Allergy Unknown THROAT Verified 02/09/24 09:03 SWELLING Review of Systems Review of Systems Comment: Ten point ROS negative Exam Exam Comment: Gen appear: No acute distress HEENT: no icterus Chest: No overt resp distress Abd: soft, nontender, nondistended Psych: Stable affect, answering questions appropriately Neuro: A/Ox3 noted to move all extremities spontaneously Ext: no peripheral edema Plan Diagnosis/Plan: Unchanged I have reviewed the history and physical and performed a pertinent physical examination on my patient. No changes have occurred unless specified. Time Spent With Patient Time: Total time managing care of this patient today ____ minutes.
[2024-02-09] MEDS: Lactated Ringers 1,000 ML 100 ML IVCONT (09:31)
--- NOTE | 2024-02-09 09:54 | P.CONAN_ITS ---
[facility] Active Problems Active Problems: All Active Problems Abdominal pain (Acute) Low back pain radiating to both legs (Acute) Right hip pain (Acute) Left hip pain (Acute) Chronic idiopathic constipation (Acute) Pre-op examination (Acute) Depression with anxiety (Acute) Multiple food allergies (Acute) Postmenopausal bleeding (Acute) Past Medical History Medical History Pre-diabetes Depression HTN (hypertension) Functional capacity: independent ambulation Patient : No Family History Family History Mother Asthma HTN (hypertension) Diabetes Father Prostate cancer Paternal Aunt Breast cancer Paternal Aunt Breast cancer Family history of problems with anesthesia: No Surgical History Surgical History H/O colonoscopy Hx of appendectomy History of Problems with Anesthesia: No Social History Social History Household Members Other:: mom Housing: Apartment Alcohol intake: never Comment: medicated in OR with ketorolac and po tylenol Patient Tobacco Use Status: Never used Tobacco Use of substances other than those prescribed or required for medical reasons: No Are you DNR?: No Advance Directives: No Advance Directives Information Provided: Yes Current occupational status: unemployed Sexual orientation: Straight/Heterosexual Gender identity: Female Meds Allergies Allergy/AdvReac Type Severity Reaction Status Date / Time apple Allergy Intermediate throat Verified 02/09/24 09:03 itching poe Allergy Unknown SWELLING Verified 02/09/24 09:03 No Known Drug Allergies Allergy Unknown none Verified 02/09/24 09:03 plum [PLUM] Allergy Unknown THROAT Verified 02/09/24 09:03 SWELLING Active Medications: Current Medications Lactated Ringer's (Lr) 1,000 mls @ 100 mls/hr IVCONT .Q10H VIC Last Admin: 02/09/24 09:31 Dose: 100 mls/hr Home Medications ?Medication ?Instructions ?Recorded ?Confirmed ?Last Taken ?Type escitalopram oxalate 5 mg tablet 5 mg PO DAILY depressive disorder 01/20/22 02/09/24 Unknown History amlodipine 5 mg tablet 10 mg PO QAM 09/15/23 02/09/24 Unknown History rosuvastatin 10 mg tablet 10 mg PO QAM 11/16/23 02/09/24 Unknown History Exam Height,Weight and Vital Signs: Height 5 ft 4 in Weight 86.636 kg Last Vital Signs Temp 97.7 F 02/09/24 09:16 Pulse 67 02/09/24 09:16 Resp 16 02/09/24 09:16 BP 156/82 H 02/09/24 09:16 Pulse Ox 97 02/09/24 09:16 O2 Del Method Room Air 02/09/24 09:16 Assessment and Plan Final Anesthetic Review Family History of Problems with Anesthesia: No History of Problems with Anesthesia: No Patient Risk: Low Procedure Risk: Low Anesthetic Plan Anesthetic Plan: MAC: Disposition: Standard PACU
--- NOTE | 2024-02-09 10:21 | P.OPN-COLO_ITS ---
Colonoscopy Operative Note Operative Note Date of Service: 02/09/24 Narrative: Procedure: Colonoscopy Indication: Abd pain, lower GI bleeding Endoscopist: Florencia Camacho MD Anesthesia Provider: Dr Rowan Pedro Anesthesia type: MAC Instrument: Olympus [id number]-[id number] Consent: Indication, risks vs benefits, and alternatives were discussed with the patient who gave written informed consent to proceed. EKG, pulse, pulse oximetry and blood pressure were monitored throughout the procedure. Please see anesthesia flowsheet. Procedure: The patient was brought to the procedure room and placed in the left lateral decubitus position. IV medications were administered by the anesthesia provider in attendance. A digital rectal exam was performed which was abnormal due to finding of external hemorrhoids. A distal attachment cap was affixed to the tip of the colonoscope which was then inserted through the anus and advanced through the colon to the cecum at 75 cm,and terminal ileum. Appendiceal orifice and ileocecal valve were identified. Mucosa was carefully examined under high definition white light as the instrument was slowly withdrawn in a retrograde panoramic fashion. Retroflexion was performed in rectum. The procedure was not difficult. There were no immediate obvious complications. The quality of the prep was BBPS: 2+3+2 = adequate Withdrawal time 11 minutes. Limitations: No limitations. Findings: Mucosa: Normal to cecum and terminal ileum. Protruding lesions: * 1 pedunculated polyp of size 6 mm was noted in rectum. The pedicle appears to be almost on the dentate line on retroflexed view and therefore removal was not attempted. Excavated lesions: * Moderate diverticulosis of sigmoid colon. Impression: 1. Normal colon mucosa 2. One pedunculated polyp (vs prolapsing hemorrhoid) almost at the dentate line which was not removed 3. Internal and external hemorrhoids Recommendations: - Will refer to gen surg for dedicated anoscopy +/- EUA - Repeat colonoscopy for asymptomatic colorectal cancer screening in 10 years if that rectal polyp is benign or hyperplastic.
[2024-02-09 10:25] VITALS: BP 109/61; PULSE 86; RESP 16; TEMP 36.5; O2SAT 97
[2024-02-09 10:40] VITALS: BP 122/80; PULSE 78; RESP 16; O2SAT 97
--- NOTE | 2024-02-09 10:51 | HO.POSTANES ---
Post Anesthesia Evaluation Post Anesthesia Evaluation Date of Service: 02/09/24 Vital Signs: Vital Signs Temp Pulse Resp BP Pulse Ox O2 Del Method 02/09/24 10:40 78 16 122/80 97 Room Air 02/09/24 10:25 97.7 F 86 16 109/61 97 Room Air 02/09/24 09:16 97.7 F 67 16 156/82 H 97 Room Air Anesthesia: Monitored Mental Status: Awake Pain Control: Satisfactory Nausea/Vomiting: None Hydration: Adequate Anesthesia-Related Issues: No Anes. Related Issues
[2024-02-09 10:55] VITALS: BP 152/80; PULSE 73; RESP 16; TEMP 36.1; O2SAT 98
== END 2024-02-09 11:47 | disposition home or self-care (01) ==
PROVIDERS: Visit Provider Internal Medicine
PROC: 0DJD8ZZ Inspection of Lower Intestinal Tract, Via Natural or Artificial Opening Endoscopic (ICD-10-PCS; CPT 45378; principal; 2024-02-09 10:20)
DX: K62.1 Rectal polyp (principal); K57.30 Diverticulosis of large intestine without perforation or abscess without bleeding; K64.8 Other hemorrhoids; K64.4 Residual hemorrhoidal skin tags; K59.04 Chronic idiopathic constipation; E11.9 Type 2 diabetes mellitus without complications; I10 Essential (primary) hypertension; Z79.899 Other long term (current) drug therapy; Z79.02 Long term (current) use of antithrombotics/antiplatelets
CPT/HCPCS: G0121; J2003; J2704

== ENCOUNTER → 2024-02-09 07:49 | Outpatient (BNV) | payer MEDICARE, MEDICAID, SELFPAY | PROVIDERS: Visit Provider Internal Medicine | DX: K92.2 Gastrointestinal hemorrhage, unspecified (principal); K62.1 Rectal polyp; K64.8 Other hemorrhoids | CPT/HCPCS: G0121 ==

== ENCOUNTER 2024-03-27 10:18 | Outpatient (REF) | payer MEDICARE, MEDICAID, SELFPAY ==
--- NOTE | ~2024-03-27 | XR_ITS ---
EXAMINATION: X-RAY PELVIS WITH RIGHT HIP CLINICAL INDICATION: Low back pain, order states right hip pain patient suspects osteoarthritis COMPARISON: 09/28/2023 TECHNIQUE: AP view of the pelvis and 2 views of right hip. FINDINGS: Moderate degenerative changes in bilateral hips with superolateral joint space narrowing and hypertrophic change, left greater than right, suggestive of bilateral femoro-acetabular impingement. Degenerative changes left hip. Degenerative changes bilateral sacroiliac joints. Levoscoliosis lumbar spine. Articulation between left L5 transverse process and left sacral ala. Surgical clips left lower quadrant, XR/XR hip RT w PEL1V IMPRESSION: 1. Moderate degenerative changes bilateral hips with superolateral joint space narrowing and hypertrophic change, left greater than right, suggestive of bilateral femoro-acetabular impingement. 2. Degenerative changes bilateral sacroiliac joints. 3. Articulation between left L5 transverse process and left sacral ala. This study was presented today March 28, 2024 for interpretation. Stat results provided at this time as requested by referring provider. 1. Electronically signed by: Rosalie Magana MD 03/28/2024 01:11 PM NELL MOSLEY
== END 2024-03-27 10:19 | disposition home or self-care (01) ==
LOC: HO.HHCX 10:18
PROVIDERS: Visit Provider Registered Nurse
DX: M25.551 Pain in right hip (principal)
CPT/HCPCS: 73502

== ENCOUNTER 2024-05-23 12:32 | Outpatient (REF) | payer MEDICARE, MEDICAID, SELFPAY ==
[2024-05-23 13:25] LABS: MANUAL DIFF FLAG NO
[2024-05-23 13:55] LABS: Basophils Percent Auto 0.5 % (0-2); Eosinophils Absolute Auto 0.1 X10*3/uL (0.0-0.4); Eosinophils Percent Auto 1.2 % (0-4); Hematocrit 43.9 % (37.0-47.0); Hemoglobin 14.5 g/dl (12.0-16.0); Imm Gran Abs Auto 0.03 X10*3/uL (0.00-0.03); Imm Gran Pct Auto 0.3 % (0.0-0.4); Lymphocytes Absolute Auto 2.5 X10*3/uL (1.2-4.9); Mean Corpuscular Hemoglobin 29.9 pg (27.0-33.0); Mean Corpuscular Volume 90.5 fL (80.0-98.0); Mean Platelet Volume 11.2 fL (9.4-12.3); Monocytes Absolute Auto 0.6 X10*3/uL (0.1-1.2); Monocytes Percent Auto 6.5 % (2-11); Neutrophils Absolute Auto 5.4 x10*3/uL (2.0-8.3); Neutrophils Percent Auto 62.5 % (45-73); Platelet Count 249 X10*3/uL (160-400); Red Blood Count 4.85 X10*6/uL (4.20-5.50); Red Cell Distribution Width 12.9 % (11.0-16.0); White Blood Count 8.6 X10*3/uL (4.8-10.8)
[2024-05-23 14:16] LABS: Anion Gap 10 (12-20); Blood Urea Nitrogen 12 mg/dL (9-16); Calcium 9.6 mg/dL (8.4-10.2); Carbon Dioxide 26 mmol/L (22-29); Chloride 106 mmol/L (96-108); Estimated Glomerular Filt Rate > 60; Glucose Random 100 mg/dL (60-115); Potassium 4.3 mmol/L (3.3-5.1); Sodium 138 mmol/L (135-145)
[2024-05-23 14:24] LABS: TSH reflex Free T4 0.99 uIU/mL (0.32-4.0)
--- OUTSIDE RECORDS SUMMARY | 2024-05-23 14:43 | XMS_ITS | Encounter Summary ---
Author Organization [employer] Address [address] [place] [id number] Care Team Providers Care Marketing Technology Specialist Name Role Phone Luly Arreola [facility] Primary Care Provider [phone] Reason for Visit * Consultation (Routine) - Authorized Specialty Diagnoses / Procedures Referred By Maude caballero Referred To Contact Pharmacy Diagnoses Primary hypertension Maxwell, Luly [facility] [address] [place] [address] Phone: tel: fax: Referral ID Status Reason Start Date Expiration Date Visits Requested Visits Authorized [id number] Authorized Continuity of Care 03/28/2024 03/28/2025 6 6 Encounter Details Date Type Department Care Team ([facility] Contact Info) Description 04/23/2024 9:00 AM EST Telemedicine [facility] [address] [place] [address] Iker Collins, PharmD [address] [place] [address] Essential hypertension (Primary Dx); Mixed hyperlipidemia; Decreased GFR Social History Tobacco Use Types Packs/Day Years Used Date Smoking Tobacco: Never Passive Smoke Exposure: Never Smokeless Tobacco: Never Alcohol Use Standard Drinks/Week Comments Never 0 (1 standard drink = 0.6 oz pur e alcohol) Depression Answer Date Recorded Patient Health Questionnaire-9 Score 18 03/21/2024 Patient Health Questionnaire-9 Score 18 03/21/2024 Last PHQ-9: Questionnaire Data Not on file 1 05/21/2023 Housing Stability Answer Date Recorded What is your housing situation today? I have denise sing 02/07/[address] you li ve. Do you have problems with any of the following? None of the above 02/07/2023 Food Insecurity Answer Date Recorded Within the past 12 months, y ou worried that your food would run out before you got money to buy more: Never True 06/10/2023 Within the past 12 months,th e food you bought just didn't last and you didn't have enough money to get more: Never True Transportation Answer Date Recorded In the past 12 months, has l ack of transportation kept you from medical appts, meetings, work or from getting things needed for daily living? No 02/07/2023 Utilities Answer Date Recorded In the past 12 months, has t he electric, gas, oil or water company threatened to shut off services in your home? No 02/07/2023 Depression Answer Date Recorded Patient Health Questionnaire-2 Score 4 03/21/2024 Internet Access Answer Date Recorded Internet Access Q1 Yes 03/12/2024 Internet Access Q2 Not on file 03/12/2024 Comments Unknown Sex and Gender Information Value Date Recorded Sex Assigned at Female 02/22/2022 10:17 AM EDT Legal Sex Female 10:17 AM EDT Gender Identity Female 02/22/2022 10:17 AM EDT Sexual Orientation Straight 02/22/2022 10 :17 AM EDT documented as of this encounter Progress Notes * Iker Collins PharmD - 04/23/2024 9:00 AM EST Pharmacy Consult Visit Type: MT Visit Pharmacist: Iker Collins PharmD Referral Diagnosis: HTN Referral Expiration: 03/28/25 Referring Provider: [facility] Recommendations for Provider: Upon review of patient reported SMBP, BP is above goal at >140/90 mmHg, please consider dose increase of amlodipine from 5 mg to 10 mg once daily for additional blood pressure lowering effect. Per ACC/AHA 2018 guidelines, in patients aged 40-75 years old at intermediate (7.5-20%) ASCVD risk,statin therapy is indicated to reduce LDL by 30-49%. Please consider dose increase of rosuvastatin from 10 mg to 20 mg once daily for additional cholesterol lowering effect. (Most recent LDL 129 mg/dL as of 09/21/23). Please consider ordering FLP and LFTs 4-12 weeks following potential dose increase in order to assess safety and efficacy of statin therapy. Patient due for annual Urine microalbumin (no prior history available in EHR). Please consider ordering updated labwork for further evaluation of kidney function. Most recent eGFR 54 mL/min/1/73m2 as of 05/12/2023 (BMP actively ordered in EHR) Begin medboxes per patient request. Please contact medbox pharmacist with any medication changes (initiations, discontinuation, dose adjustments). Background/ Visit Intake Amna Carlson is a 64 y.o. patient here for a new patient visit. Visit completed over the phone. Allergies: is allergic to poe and peach [prunus persica]. Preferred Pharmacy: [facility] [address] [facility] [address] [facility] [phone] Medbox: To begin during today's appointment. Assessment & Plan Adherence: History: Medication Reconciliation: Reports use of the following medications that are not currently active in [facility]: Linzess 145 mcg once daily (LF 09/15/23 x 30ds - prescribed by Marti Cunningham) Per chart review, patient had not been taking this medication regularly as they had mistaken it as part of their colonoscopy prep prescriptions. During today's visit, patient reports they have now begun taking it daily. Per [facility] gastroenterology note from 11/16/23, plan is for patient to continue on Linzess. Denies use of the following medications that are active in [facility] medlist: Ketorolac eye drops (LF 06/2022) OTC medication, vitamin, supplement use: denies Adherence: Read/Write: Yes, in Polish & Nauruan Medication Organization: Takes from vials Missed doses: Reports missing 3 doses/week Reports the following barriers to adherence: Difficulty remembering to take medications Reports using the following strategies to improve adherence: Created daily routine Patient reports that they place their medications in front of the golf cart maker in the kitchen so that they can try to remember taking their medications. Reports interest in [facility] medbox program Goals of therapy: Improve adherence & minimize missed doses (<2 missed doses/week) Recommendations/Monitoring: Begin medboxes per patient request. Please contact medbox pharmacist with any medication changes (initiations, discontinuation, dose adjustments). Patient encouraged to place medboxes in places where they remember best, such as in the kitchen as mealtimes may serve as a reminder to take their medication. Patient reported understanding. Pharmacy updated medlist in [facility] to match patients current medication use Educated patient on use of Linzess as daily maintenance therapy for chronic constipation. Patient reported understanding. Due to pharmacy protocols, bottle of Linzess is to be dispensed in original container and is unableto be included in medboxes. Patient encouraged to keep bottle next to medboxes to take at the same time. Hypertension: Pharmacologic Therapy: Amlodipine 5 mg once daily History: Patient endorsed SMBP every morning, however denies keeping daily log. Patient endorsed that they do not remember if their BP readings were taken before or after taking their medications. Patient reports the following SMBP values from the history on their BP monitor (no dates available). Date Blood pressure (mmHg) 04/23/24 150/87 150/88 146/89 177/100 Patient endorsed that they sometimes experience headaches and blurry vision. However, patient reports that these events do not last all day. Patient denies taking BP during these times Patient denies experiencing these symptoms during today's visit. Recent Blood Pressure values: BP Readings from Last 4 Encounters: 03/21/24 (!) 150/88 02/23/24 118/74 11/22/23 132/68 09/21/23 118/82 Pulse Readings from Last 4 Encounters: 03/21/24 93 09/21/23 60 06/22/23 86 06/06/23 93 Lab monitoring Lab Results Component Value Date NA 143 05/12/2023 K 4.7 05/12/2023 CREATININE 1.03 05/12/2023 EGFR 54 05/12/2023 Goals of Therapy per JNC 8: Achieve & maintain BP <140/90mmHg (patient does not have active diagnosis of CKD in chart (documented as decreased GFR ) as most recent eGFR 54 mL/min/1.73m2 as of 05/12/2023) Plan: Upon review of patient reported SMBP, BP is above goal at >140/90 mmHg, please consider dose increase of amlodipine from 5 mg to 10 mg once daily for additional blood pressure lowering effect. BMP actively ordered in EHR, needs collection. Patient encouraged to complete outstanding labwork. Education: Counseling provided to SMBP & log results for review in follow up. Reviewed BP goals, patient instructed to call office if extremes of BP are noted prior to follow up. ASCVD Risk Pharmacologic Therapy: Rosuvastatin 10 mg once daily History: Rosuvastatin initiated in 04/2023 About an 8% decrease in LDL with available updated labs (140 mg /dL (as of 05/12/23) --> 129 mg/dL (after ~4 months of statin therapy)) Lab monitoring: Lab Results Component Value Date CHOL 206 (H) 09/21/2023 LDLCHOLCAL 129 (H) 09/21/2023 HDL 50 09/21/2023 TRIG 139 09/21/2023 AST 17 05/12/2023 ALT 15 05/12/2023 The 10-year ASCVD risk score (Joyce DK, et al., 2019) is: 10.7% Values used to calculate the score: Age: 64 years Sex: Female Is Non- : No Diabetic: No Tobacco smoker: No Systolic Blood Pressure: 150 mmHg Is BP treated: Yes HDL Cholesterol: 50 mg/dL Total Cholesterol: 206 mg/dL Goals of Therapy: ACC/AHA 2018 Cholesterol Guidelines: Ensure evidence based and safe use of medications for primary prevention of ASCVD. Plan: Per ACC/AHA 2018 guidelines, in patients aged 40-75 years old at intermediate (7.5-20%) ASCVD risk,statin therapy is indicated to reduce LDL by 30-49%. Please consider dose increase of rosuvastatin from 10 mg to 20 mg once daily for additional cholesterol lowering effect. (Most recent LDL 129 mg/dL as of 09/21/23). Please consider ordering FLP and LFTs 4-12 weeks following potential dose increase in order to assess safety and efficacy of statin therapy. Decreased GFR (stage 3a (eGFR 45-59)) Pharmacologic Therapy: None History No diagnosis of CKD listed in chart, however labs demonstrate declining renal function. Labs monitoring: Lab Results Component Value Date EGFR 54 05/12/2023 EGFR 73 09/17/2021 CREATININE 1.03 05/12/2023 CREATININE 0.96 09/17/2021 CrCl (AdjBW) = 58.8 mL/min as of 05/12/23 Goals of Therapy: Ensure safe & appropriate medication use in the setting of declining renal function. Plan: Pharmacist reviewed current medications for renal dose adjustments, none required at this time. Patient due for annual Urine microalbumin (no prior history available in EHR). Please consider ordering updated labwork for further evaluation of kidney function. Most recent eGFR 54 mL/min/1/73m2 as of 05/12/2023 (BMP actively ordered in EHR) Upon return of results, patient may be a candidate for ACEi or ARB therapy. BMP actively ordered in EHR, needs collection. Patient encouraged to complete outstanding lab work. Upon return of updated BMP, medications will require another review for renal dose adjustments if patient's renal function continues to decline. Immunizations History: Immunization History Administered Date(s) Administered INFLUENZA INJECTABLE QUADRIVALANT CCIIV4 MDCK Multi-dose vial 04/05/2019 Influenza, IIV3, injectable 02/25/2012, 01/19/2023 Moderna Covid-19 Vaccine 12+ 06/24/2020, 07/22/2020 Pfizer Covid-19 Vaccine 12+ 05/11/2023 Tdap 06/18/2008, 01/18/2019 Zoster, Recombinant 01/18/2019, 04/05/2019 Goals of therapy: Ensure patient is up to date per the CDC Adult Immunization Schedule. Assessment/Plan: Influenza 2668-3503 vaccine: Due . Next dose due annually. COVID-19 5216-4143 vaccine: Up-to-date . Next dose due annually. Hepatitis B series (Age 60+ without known risk factors): Not indicated . Pneumococcal vaccines (Age >65): Due Shingrix series (age > 50 ): Up-to-date . Td/TDaP (within the past 10 years): Up-to-date . Next dose due every 10 years. Plan: Patient agreeable to scheduling an appointment to receive indicated vaccines. Appointment scheduled at [facility] pharmacy for 05/04/24 Education: Indication of all recommended/administered vaccines Patient Action Plan Reviewed today with plan to revisit at follow up in 1 months: 06/14/2024 Bring home supply of medications to the pharmacy on: 04/30/24 retail field supervisor medbox from the pharmacy on: 05/04/24 Attend appointment on 05/04/24 to receive indicated vaccinations. Monitor blood pressure daily and log SMBP documented in this encounter Plan of Treatment Upcoming Encounters Date Type Department Care Team (Late st Contact Info) Description 06/06/2024 11:00 AM EST Clinical Support [address] [id number] 06/14/2024 9:00 AM EST Telemedicine [address] [id number] documented as of this encounter Visit Diagnoses Diagnosis Essential hypertension- Primary Unspecified essential hypertension Mixed hyperlipidemia Decreased GFR documented in this encounter Additional Health Concerns Assessment Noted Time PHQ-9 Depression Total Score: 18 03/21/ 024 10:12 AM EST documented as of this encounter Care Teams Marketing Technology Specialist Relationship Specialty Start Date End Date Luly Arreola FNP [address] [place] [id number] PCP - General Family Medicine 12/17/21 documented as of this encounter
--- OUTSIDE RECORDS SUMMARY | 2024-05-23 14:43 | XMS_ITS | Encounter Summary ---
Author Organization [employer] Address [address] [place] [address] 7 [place] [address] Care Team Providers Care Transformer Inspector Name Role Phone Maxwell, [facility] Primary Care Provider Encounter Details Date Type Department Care Team (Latest Contact Info) Description 05/23/2024 11:30 AM EST Office Visit [facility] [address] [place] [address] [facility] [address] [place] [address] Vaginal discharge (Primary Dx); Pelvic pain; Encounter for screening for infections with a predominantly sexual mode of transmission Social History Tobacco Use Types Packs/Day Years [...] your housing situation today? I have denise neal 02/07/[address] you li [...] AM EDT documented as of this encounter Last Filed Vital Signs Vital Sign Reading Time Taken Comments Blood Pressure 159/84 05/23/2024 11:51 AM EST Pulse 95 05/23/2024 11:43 AM EST Temperature 35.8 ??C (96.4 ??F) 05/23/2024 1 1:43 AM EST Respiratory Rate 18 05/23/2024 11:4 3 AM EST Oxygen Saturation - - Inhaled Oxygen Concentration - - Weight 89.3 kg (196 lb 12.8 oz) 025 11:43 AM EST Height 162.6 cm (5' 4 ) 05/23/2024 11:4 3 AM EST Body Mass Index 33.78 05/23/2024 11:43 AM EST documented in this encounter Plan of Treatment Upcoming Encounters Date Type Department Care Team (Late st Contact Info) Description 06/06/2024 11:00 AM EST Clinical Support [facility] [address] [place] [id number] 06/14/2024 9:00 AM EST Telemedicine [facility] [address] [place] [phone] Scheduled Orders Name Type Priority Associated Diagnoses Orde r Schedule Bacterial Vaginosis Microbiology Routine Vaginal discharge Ordered: 05/23/2024 Chlamydia/N. Gonorrhoeae RNA, TMA, Urogenitial Microbiology Routine Vaginal discharge Encounter for screening for infections with a predominantly sexual mode of transmission Ordered: 05/23/2024 documented as of this encounter Procedures Procedure Name Priority Date/Time Associated Diagnosis Comments POCT URINALYSIS DIPSTICK Routine 05/23/2024 12:21 PM EST Vaginal discharge documented in this encounter Results * POCT Urinalysis (05/23/2024 12:21 PM EST) Color, UA Yellow Clarity, UA Cloudy Glucose, UA Negative Bilirubin, UA Negative Ketones, UA Negative Spec Grav, UA 1.030 Blood, UA Negative Negative, None Detected pH, UA 5.0 Protein, UA Negative Urobilinogen, UA 0.2 Leukocytes, UA Trace Negative, Rare, Trace Comment:SMALL Nitrite, UA Negative Negative, None Detected Appearance, UA CLOUDY QC Media Lot # [id number] Lot# Expiration Date Urine 05/23/2024 12:2 1 PM EST [facility] POINT OF CARE TEST ENTER/EDIT ORDERABLES Final Result documented in this encounter Visit Diagnoses Diagnosis Vaginal discharge- Primary Leukorrhea, not specified as infective Pelvic pain Encounter for screening for infections with a predominantly sexual mode of transmission documented in this encounter Additional Health Concerns Assessment Noted Time PHQ-9 Depression Total Score: 18 024 10:12 AM EST documented as of this encounter Care Teams Transformer Inspector Relationship Specialty Start Date End Date Luly Arreola FNP [address] [place] [id number] PCP - General Family Medicine 12/17/21 documented as of this encounter
--- OUTSIDE RECORDS SUMMARY | 2024-05-23 14:43 | XMS_ITS | Encounter Summary ---
Author Organization [employer] Address [address] [facility] [address] [place] [address] Care Team Providers Care Pencil Maker Name Role Phone Luly Arreola UPPER DOUBLER Primary Care Provider [phone] Reason for Visit * Reason Onset Date Comments rs appt 02/23/2023 Encounter Details Date Type Department Care Team ([facility] st Contact Info) Description 02/23/2023 Telephone [facility] [address] [place] [address] Greg Beltran, DMD [address] [place] [address] rs appt Social History Tobacco Use Types Packs/Day Years Used Date Smoking Tobacco: Never Passive Smoke Exposure: Never Smokeless Tobacco: Never Depression Answer Date Recorded Patient Health Questionnaire-9 Score 19 07/22/2022 Housing Stability Answer Date Recorded What is your housing situation today? I have dneise neal 02/07/[address] you li ve. Do you have problems with any of the following? None of the above 02/07/2023 Food Insecurity Answer Date Recorded Within the past 12 months, y ou worried that your food would run out before you got money to buy more: Never True 02/07/2023 Within the past 12 months,th e food [...] Answer Date Recorded Patient Health Questionnaire-2 Score 5 07/22/2022 Comments Unknown Sex and Gender Information Value Date Recorded Sex Assigned at Female 02/22/2022 10:17 AM EDT Legal Sex Female 10:17 AM EDT Gender Identity Female 02/22/2022 10:17 AM EDT Sexual Orientation Straight 02/22/2022 10 :17 AM EDT documented as of this encounter Miscellaneous Notes * Telephone Encounter - Rivka Santana - 02/23/2023 1:23 PM EDT Patient was unable to come to [facility] appt due to needing to take brother to urgent kidney appt. They would like to reschedule DR documented in this encounter Plan of Treatment Upcoming Encounters Date Type Department Care Team (Late st Contact Info) Description 06/06/2024 11:00 AM EST Clinical Support [address] [address] 06/14/2024 9:00 AM EST Telemedicine [facility] [address] [place] [phone] documented as of this encounter Visit Diagnoses Not on filedocumented in this encounter Additional Health Concerns Assessment Noted Time PHQ-9 Depression Total Score: 19 023 10:40 AM EDT documented as of this encounter Care Teams Pencil Maker Relationship Specialty Start Date End Date Luly Arreola FNP [address] [place] [address] PCP - General Family Medicine 12/17/21 documented as of this encounter
--- OUTSIDE RECORDS SUMMARY | 2024-05-23 14:43 | XMS_ITS | Encounter Summary ---
Author Organization [employer] Address [address] [place] [address] Care Team Providers Care Alumni Relations Manager Name Role Phone [facility] Primary Care Provider [phone] Encounter Details Date Type Department Care Team ([facility] Contact Info) Description 04/30/2024 Orders Only [facility] [address] [place], [place] [id number] [facility] [address] [place] [address] Essential hypertension (Primary Dx); Mixed hyperlipidemia; Primary hypertension Social History Tobacco Use Types Packs/Day Years [...] AM EDT documented as of this encounter Plan of Treatment Upcoming Encounters Date Type Department Care Team (Late st Contact Info) Description 06/06/2024 11:00 AM EST Clinical Support [address] [address] 06/14/2024 9:00 AM EST Telemedicine [address] [address] documented as of this encounter Visit Diagnoses Diagnosis Essential hypertension- Primary Unspecified essential hypertension Mixed hyperlipidemia Primary hypertension Unspecified essential hypertension documented in this encounter Additional Health Concerns Assessment Noted Time PHQ-9 Depression Total Score: 18 03/21/2 024 10:12 AM EST documented as of this encounter Care Teams Alumni Relations Manager Relationship Specialty Start Date End Date Luly Arreola FNP [address] [place] [phone] PCP - General Family Medicine 12/17/21 documented as of this encounter
--- OUTSIDE RECORDS SUMMARY | 2024-05-23 14:43 | XMS_ITS | Data Portability ---
Author Organization [facility] [place], OFFICE Address [address] [place] [address] Care Team Providers Care Solar Engineer Name Role Phone TIO MCDONALD Primary Care Provider [phone] Assessment Encounter Date Assessment Date Assessment LastModified by Organization Details LastModified Time 02/03/2017 02/03/2017 ? I have reviewed the risks, benefits and alternatives of care with patient. The patient has had all questions answered and has verbalized understanding. I have reviewed medications with the patient as well as all necessary changes made. I have relayed that it is the patient? s responsibility to return for a follow up visit scheduled at the time of this visit, and the patient accepts full responsibility of health care in case of no-shows or cancellations. Not available 02/03/2017 09:23:08 06/08/2017 06/08/2017 I have reviewed the risks, benefits and alternatives of care with patient. The patient has had all questions answered and has verbalized understanding. I have reviewed medications with the patient as well as all necessary changes made. I have relayed that it is the patient? s responsibility to return for a follow up visit scheduled at the time of this visit, and the patient accepts full responsibility of health care in case of no-shows or cancellations. Not available 06/08/2017 07:59:07 Plan of Treatment Reminders Order Date Submit Date Provider Last Modified By Organization Details Last Modified Time Details Appointments None recorded. Lab vitamin B12 + folate, serum or blood 2016 017 [facility] Not available 8 08:41:29 vitamin D, 25-hydroxy , total, serum 2016 017 [facility] Not available 8 08:41:31 HbA1c (hemoglobi n A1c), blood 2016 017 [facility] Not available 8 08:41:30 lipid panel, serum 2016 017 [facility] Not available 8 08:41:29 CBC w/ auto diff 2016 017 [facility] Not available 8 08:41:26 TSH + free T4, serum 2016 [facility] Not available 8 08:41:25 CMP, serum or plasma 2016 017 [facility] Not available 8 08:41:27 urinalysis complete, reflex culture 2016 [facility] Not available 8 08:41:28 HbA1c (hemoglobi n A1c), blood 2017 018 [facility], [address], [address], [place], [address], 8 14:20:37 CMP, serum or plasma 2017 018 [facility], [address], [address], [place], [address], 8 14:20:38 vitamin D, 25-hydroxy , total, serum 2017 018 [facility], [address], [address], [place], [address], 8 14:20:38 pap, IG + reflex HR HPV (16+18) 2017 018 [facility], [address], [address], [place], [address], 8 13:38:07 Referral general surgeon referral 2017 018 [facility] Not available 8 05:00:56 Procedures None recorded. Surgeries None recorded. Imaging MAMMO, screening, digital, bilateral 2016 017 [facility] Not available 8 05:00:45 MAMMO, screening, digital, bilateral 2017 018 [facility] [address], [address], [place], [address], 8 16:08:33 bone density 2017 018 [facility] [address], [address], [place], [address], 8 16:08:44 US, echocardio gram 2017 018 [facility], [address], [place], [address], 8 10:32:42 electrocar diogram 2017 018 [facility], [address], [place], [address], 8 10:41:43 Medication Orders ergocalcif fabiano (vitamin D2) 1,250 mcg (50,000 unit) capsule 2017 018 INTERFACE [id number], [address] [place], [address], 14:20:25 Patient TargetsNo targets recorded. Patient Instructions Encounter Date Encounter Id Patient Instructions Last Modified By Organization Details Last Modified Time 05/25/2017 [id number] mamograf? ? ?a: sobre esta prueba - [mammogram: about this test] groque Not available 05/25/2017 14:22:21 groque Not available 2017 14:19:12 01/04/2018 [id number] presi? ? ?n arterial elevada: instrucciones de cuidado - [elevated blood pressure: care instructions] allyson Not available 01/04/2018 16:41:47 Reason for Referral General Surgeon Referral for Screening for malignant neoplasm of colon Referring Physician: Tio Mcdonald, Internal Medicine, Encounter Date: 05/25/2017 Results Created Date Observation Date Name Description Value Unit Range Abnormal Flag Note LastModifiedBy Organization Detail LastModifiedTime 05/04/19 18 05/05/2017 TSH + free T4, serum TSH 1.490 uIU/m L 0.450- 4.500 Not Available [facility] ([facility]) [address] [facility], [place], [address], 05/05/2017 08:41:25 05/04/19 18 05/05/2017 TSH + free T4, serum T4,free(dire ct) 1.11 NG/dL 0.82-1 .77 Not Available [facility] ([facility]) [address] [facility] [place], [address], 05/05/2017 08:41:25 05/04/19 18 05/04/2017 CBC w/ auto diff WBC 6.3 x10e3 /uL 3.4-10 .8 Not Available [facility] ([facility]) [address] [facility], [place], [address], 05/05/2017 08:41:26 05/04/19 18 05/04/2017 CBC w/ auto diff RBC 4.66 x10e6 /uL 3.77-5 .28 Not Available [facility] ([facility]) [address] [place], [address], 05/05/2017 08:41:26 05/04/19 18 05/04/2017 CBC w/ auto diff hemoglobin 14.0 g/dL 11.1-1 5.9 Not Available [facility] ([facility]) [address] [facility] [place], [address], 05/05/2017 08:41:26 05/04/19 18 05/04/2017 CBC w/ auto diff hematocrit 43.6 % 34.0-4 6.6 Not Available [facility] ([facility]) [address] [place], [address], 05/05/2017 08:41:26 05/04/19 18 05/04/2017 CBC w/ auto diff MCV 94 fL 79-97 Not Available [facility] ([facility]) [address] [facility], [place], [address], 05/05/2017 08:41:26 05/04/19 18 05/04/2017 CBC w/ auto diff MCH 30.0 pg 26.6-3 3.0 Not Available [facility] ([facility]) [address] [facility], [place], [address], 05/05/2017 08:41:26 05/04/19 18 05/04/2017 CBC w/ auto diff MCHC 32.1 g/dL 31.5-3 5.7 Not Available [facility] ([facility]) [address] [facility], [place], [address], 05/05/2017 08:41:26 05/04/19 18 05/04/2017 CBC w/ auto diff RDW 13.4 % 12.3-1 5.4 Not Available [facility] ([facility]) [address] [facility], [place], [address], 05/05/2017 08:41:26 05/04/19 18 05/04/2017 CBC w/ auto diff platelets 251 x10e3 /uL 150-37 9 Not Available [facility] ([facility]) [address] [facility], [place], [address], 05/05/2017 08:41:26 05/04/19 18 05/04/2017 CBC w/ auto diff neutrophils 52 % not estab. Not Available [facility] ([facility]) [address] [facility], [place], [address], 05/05/2017 08:41:26 05/04/19 18 05/04/2017 CBC w/ auto diff lymphs 37 % not estab. Not Available [facility] ([facility]) [address] [facility], [place], [address], 05/05/2017 08:41:26 05/04/19 18 05/04/2017 CBC w/ auto diff monocytes 8 % not estab. Not Available [facility] ([facility]) [address] [place], [address], 05/05/2017 08:41:26 05/04/19 18 05/04/2017 CBC w/ auto diff eos 3 % not estab. Not Available [facility] ([facility]) [address] [place], [address], 05/05/2017 08:41:26 05/04/19 18 05/04/2017 CBC w/ auto diff basos 0 % not estab. Not Available [facility] ([facility]) [address] [place], [address], 05/05/2017 08:41:26 05/04/19 18 05/04/2017 CBC w/ auto diff immature cells NEWS INTERN Not Available [facility] ([facility]) [address] [place], [address], 05/05/2017 08:41:26 05/04/19 18 05/04/2017 CBC w/ auto diff neutrophils (absolute) 3.2 x10e3 /uL 1.4-7. 0 Not Available [facility] ([facility]) [address] [place], [address], 05/05/2017 08:41:26 05/04/19 18 05/04/2017 CBC w/ auto diff lymphs (absolute) 2.3 x10e3 /uL 0.7-3. 1 Not Available [facility] ([facility]) [address] [place], [address], 05/05/2017 08:41:26 05/04/19 18 05/04/2017 CBC w/ auto diff monocytes(ab solute) 0.5 x10e3 /uL 0.1-0. 9 Not Available [facility] ([facility]) [address] [place], [address], 05/05/2017 08:41:26 05/04/19 18 05/04/2017 CBC w/ auto diff eos (absolute) 0.2 x10e3 /uL 0.0-0. 4 Not Available [facility] ([facility]) [address] [facility], [place], [address], 05/05/2017 08:41:26 05/04/19 18 05/04/2017 CBC w/ auto diff baso (absolute) 0.0 x10e3 /uL 0.0-0. 2 Not Available [facility] ([facility]) [address] [place], [address], 05/05/2017 08:41:26 05/04/19 18 05/04/2017 CBC w/ auto diff immature granulocytes 0 % not estab. Not Available [facility] ([facility]) [address] [facility], [place], [address], 05/05/2017 08:41:26 05/04/19 18 05/04/2017 CBC w/ auto diff immature grans (abs) 0.0 x10e3 /uL 0.0-0. 1 Not Available [facility] ([facility]) [address] [place], [address], 05/05/2017 08:41:26 05/04/19 18 05/04/2017 CBC w/ auto diff NRBC NEWS INTERN Not Available [facility] ([facility]) [address] [place], [address], 05/05/2017 08:41:26 05/04/19 18 05/04/2017 CBC w/ auto diff hematology comments: NEWS INTERN A hand- writt en panel /prof ile was recei august from your offic e. In accor dance with the [facility] Crystal tirado Test Code Polic y dated October 2002, we have assig cordell CBC with Diffe danielati al/Pl karolina t, Test Code #[address]. If this is not the testi ng you wishe d to recei ve on this speci syed cabezas ct the [facility] Clien t Inqui ry/ Techn ical Servi paula Depar tment to tiffanie adams the test order . We appre ciate your busin ess. Not Available [facility] ([facility]) [address] [place], [address], 05/05/2017 08:41:26 05/04/19 18 05/05/2017 CMP, serum or plasm a glucose, serum 117 mg/dL 65-99 above high normal Not Available [facility] ([facility]) [address] [place], [address], 05/05/2017 08:41:27 05/04/19 18 05/05/2017 CMP, serum or plasm a BUN 15 mg/dL 6-24 Not Available [facility] ([facility]) [address] [place], [address], 05/05/2017 08:41:27 05/04/19 18 05/05/2017 CMP, serum or plasm a creatinine, serum 1.03 mg/dL 0.57-1 .00 above high normal Not Available [facility] ([facility]) [address] [place], [address], 05/05/2017 08:41:27 05/04/19 18 05/05/2017 CMP, serum or plasm a eGFR if nonafricn AM 60 mL/mi n/1.7 3 >59 Not Available [facility] ([facility]) [address] [place], [address], 05/05/2017 08:41:27 05/04/19 18 05/05/2017 CMP, serum or plasm a eGFR if africn AM 69 mL/mi n/1.7 3 >59 Not Available [facility] ([facility]) [address] [place], [address], 05/05/2017 08:41:27 05/04/19 18 05/05/2017 CMP, serum or plasm a BUN/creatini ne ratio 15 9-23 Not Available [facility] ([facility]) [address] [place], [address], 05/05/2017 08:41:27 05/04/19 18 05/05/2017 CMP, serum or plasm a sodium, serum 143 mmol/ L 134-14 4 Not Available [facility] ([facility]) [address] [place], [address], 05/05/2017 08:41:27 05/04/1905/05/2017 CMP, serum or plasm a potassium, serum 5.3 mmol/ L 3.5-5. 2 above high normal Not Available [facility] ([facility]) [address] [place], [address], 05/05/2017 08:41:27 05/04/19 18 05/05/2017 CMP, serum or plasm a chloride, serum 100 mmol/ L 96-106 Not Available [facility] ([facility]) [address] [place], [address], 05/05/2017 08:41:27 05/04/19 18 05/05/2017 CMP, serum or plasm a carbon dioxide, total 24 mmol/ L 18-29 Not Available [facility] ([facility]) [address] [place], [address], 05/05/2017 08:41:27 05/04/1905/05/2017 CMP, serum or plasm a calcium, serum 9.8 mg/dL 8.7-10 .2 Not Available [facility] ([facility]) [address] [place], [address], 05/05/2017 08:41:27 05/04/1905/05/2017 CMP, serum or plasm a protein, total, serum 7.5 g/dL 6.0-8. 5 Not Available [facility] ([facility]) [address] [place], [address], 05/05/2017 08:41:27 05/04/19 18 05/05/2017 CMP, serum or plasm a albumin, serum 4.5 g/dL 3.5-5. 5 Not Available [facility] ([facility]) [address] [facility] [place], [address], 05/05/2017 08:41:27 05/04/19 18 05/05/2017 CMP, serum or plasm a globulin, total 3.0 g/dL 1.5-4. 5 Not Available [facility] ([facility]) [address] [facility] [place], [address], 05/05/2017 08:41:27 05/04/19 18 05/05/2017 CMP, serum or plasm a A/G ratio 1.5 1.2-2. 2 Not Available [facility] ([facility]) [address] [place], [address], 05/05/2017 08:41:27 05/04/19 18 05/05/2017 CMP, serum or plasm a bilirubin, total 0.2 mg/dL 0.0-1. 2 Not Available [facility] ([facility]) [address] [place], [address], 05/05/2017 08:41:27 05/04/19 18 05/05/2017 CMP, serum or plasm a alkaline phosphatase, S 83 IU/L 39-117 Not Available [facility] ([facility]) [address] [place], [address], 05/05/2017 08:41:27 05/04/19 18 05/05/2017 CMP, serum or plasm a AST (SGOT) 18 IU/L 0-40 Not Available [facility] ([facility]) [address] [place], [address], 05/05/2017 08:41:27 05/04/19 18 05/05/2017 CMP, serum or plasm a ALT (SGPT) 16 IU/L 0-32 Not Available [facility] ([facility]) [address] [facility], [place], [address], 05/05/2017 08:41:27 05/04/19 18 05/05/2017 urina lysis compl ete, refle x cultu re specific gravity 1.022 1.005- 1.030 Not Available [facility] ([facility]) [address] [facility], [place], [address], 05/05/2017 08:41:27 05/04/19 18 05/05/2017 urina lysis compl ete, refle x cultu re pH 5.5 5.0-7. 5 Not Available [facility] ([facility]) [address] [facility], [place], [address], 05/05/2017 08:41:27 05/04/19 18 05/05/2017 urina lysis compl ete, refle x cultu re urine-color YELLOW yellow Not Available [facility] ([facility]) [address] [facility], [place], [address], 05/05/2017 08:41:27 05/04/19 18 05/05/2017 urina lysis compl ete, refle x cultu re appearance CLEAR clear Not Available [facility] ([facility]) [address] [facility], [place], [address], 05/05/2017 08:41:27 05/04/19 18 05/05/2017 urina lysis compl ete, refle x cultu re WBC esterase NEGATI VE negati ve Not Available [facility] ([facility]) [address] [facility], [place], [address], 05/05/2017 08:41:27 05/04/19 18 05/05/2017 urina lysis compl ete, refle x cultu re protein NEGATI VE negati ve/tra ce Not Available [facility] ([facility]) [address] [place], [address], 05/05/2017 08:41:27 05/04/19 18 05/05/2017 urina lysis compl ete, refle x cultu re glucose NEGATI VE negati ve Not Available [facility] ([facility]) [address] [place], [address], 05/05/2017 08:41:27 05/04/19 18 05/05/2017 urina lysis compl ete, refle x cultu re ketones NEGATI VE negati ve Not Available [facility] ([facility]) [address] [place], [address], 05/05/2017 08:41:27 05/04/19 18 05/05/2017 urina lysis compl ete, refle x cultu re occult blood NEGATI VE negati ve Not Available [facility] ([facility]) [address] [place], [address], 05/05/2017 08:41:27 05/04/19 18 05/05/2017 urina lysis compl ete, refle x cultu re bilirubin NEGATI VE negati ve Not Available [facility] ([facility]) [address] [place], [address], 05/05/2017 08:41:27 05/04/19 18 05/05/2017 urina lysis compl ete, refle x cultu re urobilinogen ,semi-qn 0.2 mg/dL 0.2-1. 0 Not Available [facility] ([facility]) [address] [place], [address], 05/05/2017 08:41:27 05/04/19 18 05/05/2017 urina lysis compl ete, refle x cultu re nitrite, urine NEGATI VE negati ve Not Available [facility] ([facility]) [address] [place], [address], 05/05/2017 08:41:27 05/04/19 18 05/05/2017 urina lysis compl ete, refle x cultu re microscopic examination COMMEN T Micro scopi c follo ws if indic ated. Not Available [facility] ([facility]) [address] [facility], [place], [address], 05/05/2017 08:41:27 05/04/19 18 05/05/2017 urina lysis compl ete, refle x cultu re microscopic examination SEE BELOW: Micro scopi c was indic ated and was perfo rmed. Not Available [facility] ([facility]) [address] [facility], [place], [address], 05/05/2017 08:41:27 05/04/19 18 05/05/2017 urina lysis compl ete, refle x cultu re WBC 0-5 /hpf 0 - 5 Not Available [facility] ([facility]) [address] [facility], [place], [address], 05/05/2017 08:41:27 05/04/19 18 05/05/2017 urina lysis compl ete, refle x cultu re RBC 0-2 /hpf 0 - 2 Not Available [facility] ([facility]) [address] [facility], [place], [address], 05/05/2017 08:41:27 05/04/19 18 05/05/2017 urina lysis compl ete, refle x cultu re epithelial cells (non renal) 0-10 /hpf 0 - 10 Not Available [facility] ([facility]) [address] [facility], [place], [address], 05/05/2017 08:41:27 05/04/19 18 05/05/2017 urina lysis compl ete, refle x cultu re epithelial cells (renal) NEWS INTERN Not Available [facility] ([facility]) [address] [place], [address], 05/05/2017 08:41:27 05/04/19 18 05/05/2017 urina lysis compl ete, refle x cultu re casts NEWS INTERN Not Available [facility] ([facility]) [address] [facility], [place], [address], 05/05/2017 08:41:27 05/04/19 18 05/05/2017 urina lysis compl ete, refle x cultu re cast type NEWS INTERN Not Available [facility] ([facility]) [address] [facility], [place], [address], 05/05/2017 08:41:27 05/04/19 18 05/05/2017 urina lysis compl ete, refle x cultu re crystals NEWS INTERN Not Available [facility] ([facility]) [address] [facility], [place], [address], 05/05/2017 08:41:27 05/04/19 18 05/05/2017 urina lysis compl ete, refle x cultu re crystal type NEWS INTERN Not Available [facility]) [address] [facility], [place], [address], 05/05/2017 08:41:27 05/04/19 18 05/05/2017 urina lysis compl ete, refle x cultu re mucus threads PRESEN T not estab. Not Available [facility] ([facility]) [address] [facility], [place], [address], 05/05/2017 08:41:27 05/04/19 18 05/05/2017 urina lysis compl ete, refle x cultu re bacteria NONE SEEN none seen/f ew Not Available [facility] ([facility]) [address] [facility], [place], [address], 05/05/2017 08:41:27 05/04/19 18 05/05/2017 urina lysis compl ete, refle x cultu re yeast NEWS INTERN Not Available [facility] ([facility]) [address] [facility], [place], [address], 05/05/2017 08:41:27 05/04/19 18 05/05/2017 urina lysis compl ete, refle x cultu re trichomonas NEWS INTERN Not Available [facility] ([facility]) [address] [facility], [place], [address], 05/05/2017 08:41:27 05/04/19 18 05/05/2017 urina lysis compl ete, refle x cultu re comment NEWS INTERN Not Available [facility] ([facility]) [address] [facility], [place], [address], 05/05/2017 08:41:27 05/04/19 18 05/05/2017 urina lysis compl ete, refle x cultu re urinalysis reflex COMMEN T This speci men will not refle x to a Urine Cultu re. Not Available [facility] ([facility]) [address] [facility], [place], [address], 05/05/2017 08:41:27 05/04/19 18 05/05/2017 lipid panel , serum cholesterol, total 202 mg/dL 100-19 9 above high normal Not Available [facility] ([facility]) [address] [place], [address], 05/05/2017 08:41:28 05/04/19 18 05/05/2017 lipid panel , serum triglyceride s 98 mg/dL 0-149 Not Available [facility] ([facility]) [address] [place], [address], 05/05/2017 08:41:28 05/04/19 18 05/05/2017 lipid panel , serum HDL cholesterol 54 mg/dL >39 Not Available [facility] ([facility]) [address] [place], [address], 05/05/2017 08:41:28 05/04/19 18 05/05/2017 lipid panel , serum VLDL cholesterol daryl 20 mg/dL 5-40 Not Available [facility] ([facility]) [address] [place], [address], 05/05/2017 08:41:28 05/04/19 18 05/05/2017 lipid panel , serum LDL cholesterol calc 128 mg/dL 0-99 above high normal Not Available [facility] ([facility]) [address] [place], [address], 05/05/2017 08:41:28 05/04/19 18 05/05/2017 lipid panel , serum comment: NEWS INTERN Not Available [facility] ([facility]) [address] [facility], [place], [address], 05/05/2017 08:41:28 05/04/19 18 05/05/2017 vitam in B12 + folat e, serum or blood vitamin B12 655 pg/mL 232-12 45 Not Available [facility] ([facility]) [address] [facility], [place], [address], 05/05/2017 08:41:29 05/04/19 18 05/05/2017 vitam in B12 + folat e, serum or blood folate (folic acid), serum 17.4 NG/mL >3.0 A serum folat e tristan ntrat ion of less than 3.1 ng/mL is consi dered to repre sent clini daryl defic iency . Not Available [facility] ([facility]) [address] [facility], [place], [address], 05/05/2017 08:41:29 05/04/19 18 05/05/2017 HbA1c (hemo globi n A1c), blood hemoglobin A1C 5.9 % 4.8-5. 6 above high normal Pre-d iabet es: 5.7 - 6.4 Diabe jens: >6.4 Glyce guy contr ol for adult s with diabe jens: <7.0 Not Available [facility] ([facility]) [address] [place], [address], 05/05/2017 08:41:30 05/04/19 18 05/05/2017 vitam in D, 25-hy droxy , total , serum vitamin D, 25-hydroxy 23.9 NG/mL 30.0-1 00.0 below low normal Vitam in D defic iency has been defin ed by the Insti tute of Medic ine and an Endoc rine Socie ty pract ice guide line as a level of serum 25-OH vitam in D less than 20 ng/mL (1,2) . The Endoc rine Socie ty went on to [facility] er defin e vitam in D insuf ficie ncy as a level betwe en 21 and 29 ng/mL (2). 1. IOM (Inst itute of Medic ine). 2009. Dieta ry refer ence intak es for calci um and D. Hiram bundy [place]: The [facility] Press . 2. William rausch MF, Connor worthy [place], Malachi off-F jake i MOHAMUD, et al. Evalu ation , treat ment, and preve ntion of vitam in D defic iency : an Endoc rine Socie ty clini daryl pract ice guide line. JCEM. 2010; 96(7) :1911 -30. Not Available [facility] ([facility]) [address] [facility], [place], [address], 05/05/2017 08:41:31 05/04/19 18 05/04/2017 CMP, serum or plasm a crystal albertov CMP14 default COMMEN T A hand- writt en panel /prof philly was recei august from your offic e. In accor dance with the [facility] Crystal tirado Test Code Polic y dated October 2002, we have compl eted your order by using the close st curre ntly or forme rly recog nized AMA panel . We have assig cordell Compr ehens yariel Metab olic Panel (14), Test Code #32[address]. If this is not the testi ng you wishe d to recei ve on this speci men, pleas e conta ct the [facility] Clien t Inqui ry/Te chnic al Servi paula Depar tment to tiffanie fy the test order . We appre ciate your busin ess. Not Available [facility] ([facility]) [address] [facility], [place], [address], 05/05/2017 08:41:31 05/04/19 18 05/04/2017 lipid panel , serum crystal remyv LP default COMMEN T A hand- writt en panel /prof fraga was recei august from your offic e. In accor dance with the [facility] Crystal uous Test Code Polic y dated October 2002, we have compl eted your order by using the close st curre ntly or forme rly recog nized AMA panel . We have assclarence landa Lipid Panel , Test Code #30[address]. If this is not the testi ng you wishe d to recei ve on this speci men, pleas e conta ct the [facility] Clien t Inqui ry/Te chnic al Servi paula Depar tment to tiffanie fy the test order . We appre ciate your busin ess. Not Available [facility] ([facility]) [address] [facility], [place], [address], 05/05/2017 08:41:32 06/08/19 18 06/10/2017 pap, IG + refle x HR HPV (16+1 8) HPV, high-risk Positi ve negati ve abnormal This high- risk HPV test detec ts thirt een high- risk types (16/1 8/31/ 33/35 /39/4 5/51/ 52/56 /58/5 9/68) witho ut diffe renti ation . Not Available [facility] ([facility]) [address] [facility], [place], [address], 06/17/2017 13:38:07 06/08/19 18 06/11/2017 pap, IG + refle x HR HPV (16+1 8) diagnosis: Commen t NEGAT YARIEL FOR INTRA EPITH ELIAL AMALIA Jurado AND KARLA HACKETT . Not Available [facility] ([facility]) [address] [facility], [place], [address], 06/17/2017 13:38:07 06/08/19 18 06/11/2017 pap, IG + refle x HR HPV (16+1 8) specimen adequacy: Waqas caballero Satis facto ry for evalu ation . Not Available [facility] ([facility]) [address] [place], [address], 06/17/2017 13:38:07 06/08/19 18 06/11/2017 pap, IG + refle x HR HPV (16+1 8) clinician provided ICD10: Waqas caballero Z01.4 19 Not Available [facility] ([facility]) [address] [place], [address], 06/17/2017 13:38:07 06/08/19 18 06/11/2017 pap, IG + refle x HR HPV (16+1 8) performed by: Waqas Jones ns, Cytot jb caballero (ASCP ) Not Available [facility] ([facility]) [address] [place], [address], 06/17/2017 13:38:07 06/08/19 18 06/11/2017 pap, IG + refle x HR HPV (16+1 8) . . Not Available [facility] ([facility]) [address] [place], [address], 06/17/2017 13:38:07 06/08/19 18 06/11/2017 pap, IG + refle x HR HPV (16+1 8) note: Waqas caballero The Pap smear is a scree wanda test desig cordell to aid in the detec tion of keerthi ligna nt and malig nant condi tions of the uteri ne cervi x. It is not a diagn ostic proce dure and shoul d not be used as the sole means of detec ting cervi daryl cance r. Both false -posi tive and false -nega tive repor ts do occur . Not Available [facility] ([facility]) [address] [place], [address], 06/17/2017 13:38:07 06/08/19 18 06/11/2017 pap, IG + refle x HR HPV (16+1 8) test methodology: Commen t This liqui d based ThinP rep(R ) pap test was richelle landa with the use of an image guide radha little Not Available [facility] ([facility]) [address], [place], [address], 06/17/2017 13:38:07 06/08/19 18 06/17/2017 pap, IG + refle x HR HPV (16+1 8) HPV genotype, 16 Negati ve negati ve Not Available [facility] ([facility]) [address], [place], [address], 06/17/2017 13:38:07 06/08/19 18 06/17/2017 pap, IG + refle x HR HPV (16+1 8) HPV genotype, 18 Negati ve negati ve Not Available [facility] ([facility]) [address], [place], [address], 06/17/2017 13:38:07 01/06/20 18 01/05/2018 elect russ castellongr am ECG Not Available [facility] [address], [place], [address], 01/04/2018 16:09:11 06/01/19 18 06/01/2017 MAMMO , richelle muñoz, digit al, bilat eral No observ ation record ed. [address], [place], [address], 12/27/2017 18:33:21 06/01/19 18 06/01/2017 bone densi ty No observ ation record ed. [email or web address], [place], [address], 12/27/2017 18:35:07 01/05/20 18 elect rocar diogr am No observ ation record ed. allyson Not Available 2017 14:54:15 01/24/20 18 01/09/2018 US, echoc ardio gram No observ ation record ed. [email or web address] Not Available 2017 11:56:25 01/25/20 18 01/24/2018 US, echoc ardio gram No observ ation record ed. BARCODE Not Available 2017 07:54:37 02/25/20 18 US, echoc ardio gram No observ ation record ed. [email or web address] Not Available 2017 09:50:39 Result Notes None recorded. Problems No Known Problems Procedures Surgical History Date Name Laterality Status Provider Name and Address Organization Details Recorded Time 8 Mammogram completed [place] [facility] 12/27/2017 18:35:05 1 [facility] 02/03/2017 09:09:01 [facility] 12/27/2017 18:38:31 Dexascan completed [facility] 12/27/2017 18:34:43 Colonoscopy completed [facility] 12/27/2017 18:40:46 Imaging Results Imaging Date Name Status LastModified by Organization Details LastModified Time 06/01/2017 MAMMO, screening, digital, bilateral completed [address], [place], [address], 12/27/2017 18:33:21 06/01/2017 bone density completed [address], [place], [address], 12/27/2017 18:35:07 01/04/2018 electrocardiogram completed [email or web address] Informa tion not available 01/05/2018 14:54:15 01/09/2018 US, echocardiogram completed [email or web address] Inform ation not available 01/23/2018 11:56:25 01/24/2018 US, echocardiogram completed [email or web address] Inform ation not available 01/24/2018 07:54:37 02/24/2018 US, echocardiogram completed [email or web address] Inform ation not available 02/24/2018 09:50:39 Procedure Notes None recorded. Medical Equipment None Reported. Allergies No known drug allergies Medications Name Sig Start Date Stop Date Status Note LastModified by Organization Details LastModified Time Vitamin D2 1,250 mcg (50,000 unit) capsule TAKE ONE CAPSULE BY MOUTH EVERY WEEK active Not Available Not Available No t Available Vitals Date Recorded Body height Body mass index (BMI) Body weight Heart rate Oxygen saturation Oxygen saturation in Arterial blood by Pulse oximetry Respiratory rate Body temperature Systolic blood pressure Diastolic blood pressure Provider Name and Address Organization Details Last Updated DateTime 7 162.56 cm 31.6 kg/m2 06337 g 72 /min 98 % 98 % 18 /min 96.4 [degF] 120 mm[Hg] 80 mm[Hg] [facility] 7 09:05:08 Date Recorded Body height Body mass index (BMI) Body weight Heart rate Oxygen saturation Oxygen saturation in Arterial blood by Pulse oximetry Respiratory rate Body temperature Systolic blood pressure Diastolic blood pressure Provider Name and Address Organization Details Last Updated DateTime 8 162.56 cm 30.2 kg/m2 12847.2 6 g 78 /min 99 % 99 % 18 /min 97.1 [degF] 138 mm[Hg] 80 mm[Hg] [facility] 8 14:08:25 Date Recorded Body height Body mass index (BMI) Body weight Heart rate Oxygen saturation Oxygen saturation in Arterial blood by Pulse oximetry Respiratory rate Body temperature Systolic blood pressure Diastolic blood pressure Provider Name and Address Organization Details Last Updated DateTime 8 162.56 cm 30 kg/m2 24391.6 6 g 83 /min 99 % 99 % 15 /min 95.2 [degF] 128 mm[Hg] 78 mm[Hg] mariah early [facility] 8 07:35:33 Date Recorded Body height Body mass index (BMI) Body weight Heart rate Oxygen saturation Oxygen saturation in Arterial blood by Pulse oximetry Respiratory rate Body temperature Heart rate Heart rate Heart rate Systolic blood pressure Diastolic blood pressure Systolic blood pressure Diastolic blood pressure Systolic blood pressure Diastolic blood pressure Systolic blood pressure Diastolic blood pressure Provider Name and Address Organization Details Last Updated DateTime 8 162.56 cm 32.4 kg/m2 15175.9 6 g 76 /min 98 % 98 % 15 /min 98 [degF] 83 /min 84 /min 81 /min 130 mm[Hg] 80 mm[Hg] 142 mm[Hg] 78 mm[Hg] 162 mm[Hg] 110 mm[Hg] 170 mm[Hg] 102 mm[Hg] [facility] 8 16:22:39 Social History Question Answer Notes LastModified by Organizat ion Details LastModified Time Tobacco Smoking Status Never Smoker [facility], [facility] 02/03/2017 09:07:08 What Is Your Level Of Alcohol Consumption? None Information not available 02/03/2017 What Is Your Level Of Caffeine Consumption? Heavy Information not available 02/03/2017 What Type Of Diet Are You Following? REGULAR Information not available 02/03/2017 Which Illicit Or Recreational Drugs Have You Used? 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 01/04/2018 Information not available 11/15/2018 Seat Belts Used Routinely Yes Information not available 02/03/2017 Smoke Alarm In Home Yes Information not available 02/03/2017 General Stress Level Medium Information not available 02/03/2017 Sex: Unknown Functional Status Question Answer Note LastModified by Organization D etails LastModified Time What is your exercise level? None Information not available 02/03/2017 Mental Status None recorded. Family History Relationship Description Onset Age of this Age Resolved Age Notes LastModified by Organization Details LastModified Time Father No current problems or disability Cancer of prosta te Not available 02/03/2017 09:06:36 Mother No current problems or disability DM Not available 01/23 09:06:20 Medical History Condition Response Anxiety Disorder N Diabetes N Coronary Artery Disease N Gout N Arthritis N Kidney Stones N Hyperthyroidism N Tuberculosis N Cancer N Diverticulitis N Stroke N Asthma N COPD N Depression N Hypothyroidism N GERD/Reflux N High Cholesterol N Liver Disease N Heart Disease N Pulmonary Embolism N Fibromyalgia N Hypertension N Osteoporosis N Kidney Disease N Gynecological History Statement/Question Response Menses Monthly N Date of LMP 05/31/2007 Age at First Child 20 Obstetrics History GPAL:G 0 P 0 0 0 0 Past Encounters Encounter ID Performer Location Encounter Start Date Encounter Closed Date Diagnosis/Indication Diagnosis SNOMED-CT Code Diagnosis ICD10 Code Diagnosis Note [id number] [facility] OFFICE [address] [place] [address] 02/03/2017 08:57:57 02/03/2017 09:57:45 Adult health examination 409872689 Z00.00 Pt was last seen by PCP, Dr. Vieyra Name at [facility] in [facility] ? 6 years ago. We will manage pt based on the informatio n provided on this visit Will request records from: -PCP,Dr. Vieyra Name [facility]? [facility]? History of appendectomy 784314560 Z90.49 in 2010 Chronic constipation 236 615037 K59.09 Pt admits to having constipati on for years. Stable on OTC stool softer (Dulcolax) ? and high fiber diet Screening mammography 24 693728 Z12.31 Last mammogram 6-7 years ago -will update Screening for malignant neoplasm of colon 328916053 Z12.11 Last colonoscop y normal 7 years ago per pt's report Body mass index 30+ - obesity 426412751 Z68.31 [id number] Tio Mcdonald MD OFFICE [address] [place] [address] 05/25/2017 13:52:03 05/25/2017 14:34:43 Hyperglycemia 92164852 R73.9 Per new labs 04/2017: FBS 117, A1C 5.7 Family h/o DM. Plan: - Diet - f/u Hyperkalemia 04446035 E8 7.5 Mild per new labs 04/2017: K 5.3 Not on nay Rx. Advice on low K diet and f/u Vitamin D deficiency 347 90473 E55.9 05/04/2017: D 23 Plan: Megadose and base line DXA. Screening mammography 24 546025 Z12.31 Last > 2 yrs ago, out state. Screening for malignant neoplasm of cervix 216106809 Z12.4 will schedule. Screening for malignant neoplasm of colon 573078849 Z12.11 Report normal Colonoscop y > 10 yrs ago. Will update. Chronic constipation 236 594791 K59.09 advice on combine Rx. Body mass index 30+ - obesity 070647810 Z68.39 BMI 30.2 [id number] [facility] OFFICE [address] [place] [address] 06/08/2017 07:15:45 06/08/2017 08:00:31 Gynecologic examination 40154990 Z01.419 No abnormalit ies noted on breast or pelvic exam -will update next year [id number] JULY DANA MALONEY OFFICE [address] [place] [address] 01/04/2018 15:39:32 01/04/2018 16:50:42 Dizziness 634894283 R42 Pt head episode of vertigo ( see above). No dizziness upon standing - however, we did check orthostati c BP Supine 142/78; sitting 162/110, standing 170/102 Electrocar diogram abnormal 124734962 R94.31 EKG today- NSR - negative precordial t waves HR 69 Benign par oxysmal positional vertigo 806250530 H81.11 Last week - woke up in the morning and experience d vertigo when turning over to the right side and with sharp head turns. This lasted 3 days and then resolved completely . She is currently asymptomat ic Elevated blood-pressure reading without diagnosis of hypertension 653690210 R03.0 Today BP 130/80 ( also 162/110 when getting orthostati cs) EKG today- NSR - negative precordial t waves HR 69 Plan Advised low sodium diet Keep BP log for 2 weeks and will review to determine further management Abnormal v aginal Papanicolaou smear 558728780 R87.[address] Cali on 12/20/2017- we do not have the results. 06/08/2017 Pap smear - positive HPV, high risk Health Concerns Section Related Observation LastModified by Organization Detai ls LastModified Time None Recorded Concern Status LastModified by Organization Details LastModified Time None Recorded Advance Directives Directive None Recorded Payers Encounter Date Sequence Insurance Name Policy Number Policy Yin Covered Member ID Yin Member ID Guarantor Name 02/03/2017 1 UMR [id number] Amna Aldo [id number] Amna Aldo 05/25/2017 1 UMR [id number] Amna Aldo [id number] Amna Aldo 06/08/2017 1 UMR [id number] Amna Aldo [id number] Amna Aldo 01/04/2018 1 UMR [id number] Amna Aldo [id number] Amna Aldo Notes Date Note Type Note Provider Name and Address Organization Details Recorded Time 02/03/2017 text/html 57 yo female presents to establish as a new patient [facility]le Joshi tien [place] [employer] [facility] 02/03/2017 09:52:59 05/25/2017 text/html Seen on 2do visit to our practice. 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 Headache and dIzziness last week when turning over bed to right side and with sharp head turns. This has since improved. Pt states BP was 147/84 at home - JULY DANA MALONEY [address], [place], [address], [facility] [employer] [facility] 01/04/2018 16:47:08 OBGyn Episode No OBEpisode recorded.
--- OUTSIDE RECORDS SUMMARY | 2024-05-23 14:43 | XMS_ITS | Encounter Summary ---
Author Organization [employer] Address [address] [place] [address] [address] [place] [address] Care Team Providers Care County Agricultural Agent Name Role Phone Luly Arreola INDUSTRIAL ENGINEER Primary Care Provider [phone] Reason for Visit * Reason Onset Date Comments Medication Question 04/30/2024 Encounter Details Date Type Department Care Team ([facility] Contact Info) Description 04/30/2024 Telephone [facility] [address] [place] [address] Adri Rodriguez, SHYLA [address] [place], [place] [phone] Medication Question Social History Tobacco Use Types Packs/Day Years [...] encounter Miscellaneous Notes * Telephone Encounter - Adri Rodriguez RN - 04/30/2024 2:02 PM EST TC placed to patient [phone] to inform amlodipine medication is going to be increased from 5mgto 10mg for better BP control. Patient verbalized understanding and reports she will bring her medboxes to [facility] to have medication updated. TC placed to medbox [id number] to inform of medication change and that patient will bring medboxes to [facility] for medication correction. ----- Message from Luly Arreola sent at 04/30/2024 1:41 PM EST ----- Please let patient know that to improve BP control we are slightly increasing amlodipine to 10mg once daily and slightly increasing cholesterol medication as well. I do not anticipate any s/e from minor dose adjustment. New medications will be in medbox. Thank you! ----- Message ----- From: Iker Collins PharmD Sent: 04/23/2024 11:57 AM EST To: [facility] MTM note ready for review. Pertinent recommendations listed below, and additional details in note. Feel free to contact pharmacist at ext [phone] with any questions or concerns. Thank you! Pharmacy Recommendations: ?? Upon review of patient reported SMBP, BP above goal at >140/90 mmHg, please consider dose increase of amlodipine from 5 mg to 10 mg once daily for additional blood pressure lowering effect. ?? Per ACC/AHA 2018 guidelines, in patients aged 40-75 years old at intermediate (7.5-20%) ASCVD risk, statin therapy is indicated to reduce LDL by 30-49%. Please consider dose increase of rosuvastatin from 10 mg to 20 mg once daily for additional cholesterol lowering effect. ?? Patient due for annual Urine microalbumin (no prior history in EHR). Please consider ordering updated labwork for further evaluation of kidney function. o Most recent eGFR 54 mL/min/1/73m2 as of 05/12/2023 (BMP actively ordered in EHR) ?? Begin medboxes per patient request. documented in this encounter Plan of Treatment Upcoming Encounters Date Type Department Care Team (Late st Contact Info) Description 06/06/2024 11:00 AM EST Clinical Support [address] [address] 06/14/2024 9:00 AM EST Telemedicine [address] [address] documented as of this encounter Visit Diagnoses Not on filedocumented in this encounter Additional Health Concerns Assessment Noted Time PHQ-9 Depression Total Score: 18 024 10:12 AM EST documented as of this encounter Care Teams County Agricultural Agent Relationship Specialty Start Date End Date Luly Arreola FNP [address] [place] [id number] PCP - General Family Medicine 12/17/21 documented as of this encounter
--- OUTSIDE RECORDS SUMMARY | 2024-05-23 14:43 | XMS_ITS | Encounter Summary ---
Author Organization [employer] Address [address] [facility] [address] [place] [address] Care Team Providers Care Central Service Technician Name Role Phone Luly Arreola LAST REPAIRER HELPER Primary Care Provider [phone] Encounter Details Date Type Department Care Team (Latest Contact Info) Description 05/23/2024 Travel Social History Tobacco Use Types Packs/Day Years [...] Description 06/06/2024 11:00 AM EST Clinical Support [address] [address] 06/14/2024 9:00 AM EST Telemedicine [address] [address] documented as of this encounter Visit Diagnoses Not on filedocumented in this encounter Additional Health Concerns Assessment Noted Time PHQ-9 Depression Total Score: 18 024 10:12 AM EST documented as of this encounter Care Teams Central Service Technician Relationship Specialty Start Date End Date Luly Arreola FNP [address] [place] [id number] PCP - General Family Medicine 12/17/21 documented as of this encounter
--- OUTSIDE RECORDS SUMMARY | 2024-05-23 14:43 | XMS_ITS | Clinical Summary ---
Author Organization [employer] Address [address] [facility] [address] [place] [address] Care Team Providers Care Collections Technician Name Role Phone Luly Arreola BUSINESS SERVICES TECH Primary Care Provider [phone] Allergies Active Allergy Reactions Criticality Noted Date Comments Grider 08/18/2023 Prunus Persica 08/18/2023 Medications * This document contains information received from the source organization and may not represent a complete record from that organization. Blood Pressure kitIndications:Pr imary hypertension Use to monitor blood pressure at home 1 kit 024 Active cholecalciferol (Vitamin D-3) 25 MCG (1000 UT) capsuleIndication s:Vitamin D deficiency Take 1 capsule (25 mcg) by mouth Once per day. 60 capsule 3 024 Active escitalopram (Lexapro) 5 MG tabletIndications :Anxious depression take 1 tablet by oral route every day for depressive symptoms 90 tablet 1 024 Active Linzess 145 MCG capsule Take 1 capsule by mouth in the morning. 024 Active amLODIPine (Norvasc) 10 MG tabletIndications :Primary hypertension Take 1 tablet (10 mg) by mouth Once per day. 90 tablet 3 025 2025 Active rosuvastatin (Crestor) 20 MG tabletIndications :Mixed hyperlipidemia Take 1 tablet (20 mg) by mouth Once per day. 90 tablet 3 025 2025 Active amLODIPine (Norvasc) 5 MG tabletIndications :Primary hypertension Take 1 tablet (5 mg) by mouth Once per day. 90 tablet 3 024 2024 Discontinued(R eorder (will not trigger notification to Pharmacy)) rosuvastatin (Crestor) 10 MG tabletIndications :Mixed hyperlipidemia Take 1 tablet (10 mg) by mouth Once per day. 90 tablet 3 024 2024 Discontinued(R eorder (will not trigger notification to Pharmacy)) Active Problems Problem Noted Date Diagnosed Date Dental calculus 02/23/2024 Missing teeth, acquired 02/23/2024 Essential hypertension 06/28/2023 Overview (06/28/2023): Amlodipine 5mg daily - Aerobic exercise to reduce BP. Initial goal of 30 min walk 3-5x/week. Increase as tolerated. - low-sodium diet (goal: <2g/day) and heart healthy diet such as DASH to reduce BP and prevent ASCVD. - Home BP monitoring 1-2 x day with goal of <140/90. - Seek immediate medical attention for chest pain, palpitations, SOB, syncope, or sudden changes in mental status. - Do not change or discontinue current prescriptions without first consulting health care provider Assessment & Plan (06/28/2023 9:12 PM EST): Did not take medication today Home readings well controlled No med changes. Continue to monitor Mixed hyperlipidemia 06/28/2023 Overview (06/28/2023): Rosuvastatin 10mg ASCVD 7.5% Assessment & Plan (06/28/2023 9:13 PM EST): START rosuvastatin 10mg daily. Reviewed administration, risks, side effects to include muscle aches, headache, GI upset and risk of hepatotoxicity. Seek immediate medical care of severe nausea vomiting, yellowing of skin/eyes, darkening of urine or abdominal pain Repeat FLP and liver enzymes 6 weeks Healthcare maintenance 06/21/2023 Overview (09/21/2023): Mammo: 02/2024 Pap: Through [facility] 10/2021 NIL HPV neg C-scope: Upcoming BMD: Routine age 64 Eye Exam: Referred 08/2023--> previously followed by [facility] and [facility]. Hx of cataract surgery. Decreased GFR 07/22/2022 Prediabetes 07/22/2022 Vitamin D deficiency 07/22/2022 Moderate episode of recurrent major depressive d isorder 07/22/2022 Overview (06/28/2023): Lexapro Declines OP therapy Support through [facility] Assessment & Plan (06/28/2023 9:09 PM EST): INCREASE lexapro to 10mg Contact HC if sx worsen or experiencing thoughts of SI or self harm. Pt has N crisis contact information Resolved Problems Problem Noted Date Diagnosed Date Resolved Date Right flank pain 06/06/2023 06/28/2023 Assessment & Plan (06/06/2023 2:23 PM EST): First differential is possibly kidney stone I recommended to drink plenty of water KUB ordered UA Alternate ibuprofen and acetaminophen If pain persist or worse go to ED Chronic right-sided low back pain 06/06/2023 06/06/2023 Acute right-sided low back pain 06/06/2023 06/21/2023 Assessment & Plan (06/06/2023 2:23 PM EST): Patient also has some muscle spasm Flexeril 5mg at bed time ( short course) Apply heat on affected area Urinary frequency 06/06/2023 06/28/2023 Encounters Date Type Department Care Team Description 05/23/2024 11:30 AM EST Office Visit [facility] [address] [place] [address] Luly Arreola FNP Vaginal discharge (Primary Dx); Pelvic pain; Encounter for screening for infections with a predominantly sexual mode of transmission 05/23/2024 Travel 04/30/2024 Telephone [facility] [address] [place] [address] Adri Rodriguez, stringed instrument tuner Question 04/30/2024 Orders Only [facility] [address] [place] [address] Luly Arreola FNP Essential hypertension (Primary Dx); Mixed hyperlipidemia; Primary hypertension 04/23/2024 9:00 AM EST Telemedicine [facility] [address] [place] [address] Iker Collins PharmD Essential hypertension (Primary Dx); Mixed hyperlipidemia; Decreased GFR 04/12/2024 1:30 PM EST Clinical Support [facility] [address] [place] [address] Adri Rodriguez, RN Forgetfulness 04/12/2024 Travel 04/11/2024 Telephone [facility] [address] [place] [address] [facility] [place] 04/02/[address] [address] Amanda Pendleton, SHYLA Results 03/30/2024 Orders Only [facility] [address] [place] [address] MaxwellLuly tenaFORMERLY [facility] Femoroacetabular impingement of both hips (Primary Dx); Primary osteoarthritis of right hip 03/28/[address] [facility] [place] 03/21/2024 10:00 AM EST Office Visit [address] [address] [place] BarLulyFORMERLY [facility] Primary hypertension (Primary Dx); Right hip pain; Forgetfulness; Anxious depression; Mixed hyperlipidemia; Prediabetes 03/21/2024 Travel 03/12/2024 Patient Outreach [address] [address] [place] BarLuly [facility] Pre-visit Planning (KSOH screening was completed on 06/22/2023) 02/23/2024 1:00 PM EDT Office Visit [facility] [address] [place] [address] Tram Gomez Dental calculus (Primary Dx); Missing teeth, acquired from Last 3 Months Immunizations Name Administration Dates Next Due INFLUENZA INJECTABLE QUADRIV ALANT CCIIV4 MDCK Multi-dose vial 04/05/2019 Influenza, IIV3, injectable 01/19/2023, 2 Pfizer Covid-19 Vaccine 05/11/2023 Tdap 01/18/2019,06/18/2008 Zoster, Recombinant 04/05/2019,01/18/2019 Family History Medical History Relation Name Comments Heart attack Brother Breast cancer Father's Sister Diabetes Mother Uterine cancer Mother's Sister Relation Name Status Comments Brother Father's Sister Mother Mother's Sister Social History Tobacco Use Types Packs/Day Years Used Date Smoking Tobacco: Never Passive Smoke Exposure: Never Smokeless Tobacco: Never Tobacco Cessation:Counseling Given: Not Answered Alcohol Use Standard Drinks/Week Comments Never 0 (1 standard drink = 0.6 oz pur e alcohol) Depression Answer Date Recorded Patient Health Questionnaire-9 Score 18 03/21/2024 Patient Health Questionnaire-9 Score 18 03/21/2024 Last PHQ-9: Questionnaire Data Not on file 1 05/21/2023 Housing Stability Answer Date Recorded What is your housing situation today? I have denise val 02/07/[address] you li [...] Orientation Straight 02/22/2022 10 :17 AM EDT Last Filed Vital Signs Vital Sign Reading Time Taken Comments Blood Pressure 159/84 05/23/2024 11:51 AM EST Pulse 95 05/23/2024 11:43 AM EST Temperature 35.8 ??C (96.4 ??F) 05/23/2024 1 1:43 AM EST Respiratory Rate 18 05/23/2024 11:4 3 AM EST Oxygen Saturation 99% 03/21/2024 10: 11 AM EST Inhaled Oxygen Concentration - - Weight 89.3 kg (196 lb 12.8 oz) 025 11:43 AM EST Height 162.6 cm (5' 4 ) 05/23/2024 11:4 3 AM EST Body Mass Index 33.78 05/23/2024 11:43 AM EST Plan of Treatment Upcoming Encounters Date Type Department Care Team (Late st Contact Info) Description 06/06/2024 11:00 AM EST Clinical Support [facility] [address] [place] [phone] 06/14/2024 9:00 AM EST Telemedicine [address] [address] Health Maintenance Due Date Last Done Comments CT Colonography 1960 Colonoscopy 1960 Colorectal Cancer Screening 1960 FIT DNA/Cologuard 1960 FIT 1960 FOBT 1960 Sigmoidoscopy 1960 Hepatitis A Vaccines (1 of 2 - Risk 2-dose series) 1978 Pneumococcal Vaccine: 50+ Years (1 of 1 - PCV) 2009 Hepatitis B Vaccines (1 of 3 - Risk 3-dose series) 2019 RSV Patients and Patients Aged 60 years or older (1 - Risk 60-74 years 1-dose series) 2019 COVID-19 Vaccine ( season) 2023 05/11/2023, 07/22/2020, 06/24/2020 Influenza Vaccine (#1) 2023 , 04/05/2019, 02/25/2012 Dental Oral Exam 02/18/2024 08/18/2023 Mammogram 07/03/2024 07/04/2023, 03/25, 04/05/2022, Additional history exists Dental X-Ray: Bitewings 08/18/2024 08/18/2023 Dental Prophylaxis 08/23/2024 02/23/2024 Depression Monitoring (PHQ-9) 09/18/2024 03/21/2024, 03/21/2024 Pap Smear 11/06/2024 11/06/2021 Alcohol/Substance Use Screening 03/21/2025 03/21/2024 Depression Screening 03/21/2025 03/21/2024, 03/21/20 Diabetes: Hemoglobin A1C 03/21/2025 024, 05/12/2023, 09/17/2021, Additional history exists SDOH Screening 03/21/2025 03/21/2024 Tobacco Screening 05/23/2025 05/23/2024 Dental X-Ray: Full Mouth 08/18/2026 08/18/2023 Cervical Cancer Screening 11/06/2026 HPV/Cotest 11/06/2026 11/06/2021 Lipid Panel 09/20/2028 09/21/2023, 04/25, 09/17/2021, Additional history exists DTaP/Tdap/Td Vaccines (3 - Td or Tdap) 01/18/2029 01/18/2019, 06/18/2008 Zoster Vaccines Completed 04/05/2019, 01/18/2019 Hepatitis C Screening Completed 09/17/2021 HIB Vaccines Aged Out No longer eligi ble based on patient's age to complete this topic HPV Vaccines Aged Out No longer eligi ble based on patient's age to complete this topic IPV Vaccines Aged Out No longer eligi ble based on patient's age to complete this topic Meningococcal Vaccine Aged Out No ivanna lennox eligible based on patient's age to complete this topic RSV under 20 months Aged Out No longe r eligible based on patient's age to complete this topic Rotavirus Vaccines Aged Out No longer eligible based on patient's age to complete this topic Procedures Procedure Name Priority Date/Time Associated Diagnosis Comments CBC WITH AUTO DIFFERENTIAL Routine 05/23/2024 12:35 PM EST Forgetfulness BASIC METABOLIC PANEL Routine 05/23/2024 12:35 PM EST Forgetfulness TSH W/REFLEX TO FT4 Routine 05/23/2024 1 2:35 PM EST Forgetfulness POCT URINALYSIS DIPSTICK Routine 05/23/2024 12:21 PM EST Vaginal discharge XR HIP RIGHT WITH PELVIS 1 VIEW Routine 03/27/2024 10:20 AM EST Right hip pain POCT GLYCATED HEMOGLOBIN, TOTAL Routine 03/21/2024 11:14 AM EST Prediabetes POCT GLUCOSE Routine 03/21/2024 11:14 AM EST Prediabetes ADJUNCTIVE GENERAL SERVICES - PROFESSIONAL VISITS - CASE PRESENTATION, SUBSEQUENT TO DETAILED AND EXTENSIVE TREATMENT PLANNING Routine 02/23/2024 1:00 PM EDT Dental calculus Missing teeth, acquired ORAL HYGIENE INSTRUCTIONS Routine 02/23/2024 1:00 PM EDT Dental calculus Missing teeth, acquired PROPHYLAXIS - ADULT Routine 02/23/2024 1 :00 PM EDT Dental calculus LIPID PANEL, STANDARD Routine 09/21/2023 12:12 PM EDT Mixed hyperlipidemia DIAGNOSTIC - DIAGNOSTIC IMAGING - INTRAORAL - COMPREHENSIVE SERIES OF RADIOGRAPHIC IMAGES Routine 08/18/2023 10:30 AM EDT PERIODIC ORAL EVALUATION - ESTABLISHED PATIENT Routine 08/18/2023 10:30 AM EDT BI MAMMOGRAM SCREENING TOMOSYNTHESIS BILATERAL Routine 07/04/2023 2:20 PM EDT Breast cancer screening by mammogram THINPREP IMAGING PAP AND HPV MRNA E6/E7, WITH CT/NG, TRICHOMONAS Routine 11/06/2021 10:37 AM EDT ZZZ HISTORICAL HEPATITIS C AB W/REFL TO HCV RNA, QN, PCR Routine 09/17/2021 10:15 AM EDT from Last 3 Months or Most Recently Relevant to Health Maintenance Results * TSH W/Reflex to FT4 (05/23/2024 12:35 PM EST) TSH reflex Free T4 0.99 0.32 - 4.0 uIU/mL [facility] Blood Venous blood specimen / Unknown 05/23/2024 12:35 PM EST 05/23/2024 1:23 PM EST [facility] BUSINESS SERVICES TECH LAB BLOOD ORDERABLES Final Re sult [facility] [address] [place] [address] [phone] * CBC auto differential (05/23/2024 12:35 PM EST) White Blood Count 8.6 4.8 - 10.8 X10*3/uL [facility] Red Blood Count 4.85 4.20 - 5.50 X10*6/uL [facility] Hemoglobin 14.5 12.0 - 16.0 g/dl [facility] Hematocrit 43.9 37.0 - 47.0 % [facility] Mean Corpuscular Volume 90.5 80.0 - 98.0 fL [facility] Mean Corpuscular Hemoglobin 29.9 27.0 - 33.0 pg [facility] Mean Corpuscular HGB Conc 33.0 31.0 - 35.0 g/dl [facility] Red Cell Distribution Width 12.9 11.0 - 16.0 % [facility] Platelet Count 249 160 - 400 X10*3/uL [facility] Mean Platelet Volume 11.2 9.4 - 12.3 fL [facility] Neutrophils Percent Auto 62.5 45 - 73 % [facility] Imm Gran Pct Auto 0.3 0.0 - 0.4 % [facility] Lymphocytes Percent Auto 29.0 20 - 40 % [facility] Monocytes Percent Auto 6.5 2 - 11 % [facility] Eosinophils Percent Auto 1.2 0 - 4 % [facility] Basophils Percent Auto 0.5 0 - 2 % [facility] NRBC Pct Auto 0.0 0.0 - 0.2 /100WBC [facility] Neutrophils Absolute Auto 5.4 2.0 - 8.3 x10*3/uL [facility] Imm Gran Abs Auto 0.03 0.00 - 0.03 X10*3/uL [facility] Lymphocytes Absolute Auto 2.5 1.2 - 4.9 X10*3/uL [facility] Monocytes Absolute Auto 0.6 0.1 - 1.2 X10*3/uL [facility] Eosinophils Absolute Auto 0.1 0.0 - 0.4 X10*3/uL [facility] Basophils Absolute Auto 0.0 0.0 - 0.2 X10*3/uL [facility] NRBC Abs Auto 0.000 0.0 - 0.012 X10*3/uL [facility] Blood Venous blood specimen / Unknown 05/23/2024 12:35 PM EST 05/23/2024 1:23 PM EST [facility] LAB BLOOD ORDERABLES Final Re sult [facility] [address] [place] [address] [phone] * (ABNORMAL) Basic Metabolic Panel (05/23/2024 12:35 PM EST) Sodium 138 135 - 145 mmol/L [facility] Potassium 4.3 3.3 - 5.1 mmol/L [facility] Chloride 106 96 - 108 mmol/L [facility] Carbon Dioxide 26 22 - 29 mmol/L [facility] Anion Gap 10(L) 12 - 20 [facility] Urea Nitrogen (BUN) 12 9 - 16 mg/dL [facility] Creatinine, Serum 0.93 0.5 - 1.4 mg/dL [facility] Estimated Glomerular Filt Rate >60 [facility] Comment:Chronic Kidney Disea se: Estimated GFR < 60 mL/min/1.22x3Fmqygu Kidney Disease: Estimated GFR < 15 mL/min/1.73m2 Glucose 100 60 - 115 mg/dL [facility] Calcium 9.6 8.4 - 10.2 mg/dL [facility] Blood Venous blood specimen / Unknown 05/23/2024 12:35 PM EST 05/23/2024 1:23 PM EST Result [facility] BUSINESS SERVICES TECH LAB BLOOD ORDERABLES Final Re sult [facility] [address] [place] [address] [phone] * POCT Urinalysis (05/23/2024 12:21 PM EST) [...] Date Urine 05/23/2024 12:2 1 PM EST Result [facility] POINT OF CARE TEST ENTER/EDIT ORDERABLES Final Result * XR Hip right with Pelvis 1 view (03/27/2024 10:20 AM EST) Anatomical Region Laterality Modality Lower Extremities, Hip Bilateral Radiograp hic Imaging 03/27/2024 10:2 0 AM EST Narrative 03/28/2024 1:14 PM EST ?[facility] ?[address] ?[place] [address] ?XRay Report ? Signed ? Patient: Amna Moreau ?MR#: M ?? [id number] ? : 1960 ?Acct:[id number] ? Age/Sex: 64 / F ?ADM Date: 12/03/24 ? Loc: HO.HHCX ? Attending Dr: Luly GOMEZ ? Ordering Physician: Luly Arreola ?? Date of Service: 03/27/24 ?? Procedure(s): XR hip RT w PEL1V ?? Accession Number(s): [id number] ? cc: Luly Arreola ? EXAMINATION: X-RAY PELVIS WITH RIGHT HIP ? CLINICAL INDICATION: Low back pain, order states right hip pain patient ?? suspects osteoarthritis ? COMPARISON: 09/28/2023 ? TECHNIQUE: AP view of the pelvis and 2 views of right hip. ? FINDINGS: Moderate degenerative changes in bilateral hips with ?? superolateral joint space narrowing and hypertrophic change, left ?? greater than right, suggestive of bilateral femoro-acetabular ?? impingement. ? Degenerative changes left hip. Degenerative changes bilateral ?? sacroiliac joints. Levoscoliosis lumbar spine. ? Articulation between left L5 transverse process and left sacral ala. ?? Surgical clips left lower quadrant, ? XR/XR hip RT w PEL1V ?? IMPRESSION: ?? 1. ??Moderate degenerative changes bilateral hips with superolateral ?? joint space narrowing and hypertrophic change, left greater than right, ?? suggestive of bilateral femoro-acetabular impingement. ?? 2. ??Degenerative changes bilateral sacroiliac joints. ?? 3. ??Articulation between left L5 transverse process and left sacral ala. ? This study was presented today March 28, 2024 for interpretation. ?? Stat results provided at this time as requested by referring provider. ?? 1. ? Electronically signed by: ??Rosalie Magana MD ??03/28/2024 01:11 PM EST ? Dictated By: ?Rosalie Magana MD ? Signed By: ?<Electronically signed by Rosalie aMgana MD in OV> ? 03/28/24 1311 ? DD/ 1020 ? TD/TT: 03/27/24 1041 ? Mortar Man: ? Procedure Note Belkis, Image - 03/28/[address] [address] XRay Report Signed Patient: Nicole Moreau#: M [id number] : 9Acct:[id number] Age/Sex: 64 / FADM Date: 03/27/24 Loc: HO.HHX Attending Dr: Luly Maxwell BUSINESS SERVICES TECH Ordering Physician: Luly ArreolaP Date of Service: 03/27/24 Procedure(s): XR hip RT w PEL1V Accession Number(s): [id number] cc: Luly Arreola [facility] EXAMINATION: X-RAY PELVIS WITH RIGHT HIP CLINICAL INDICATION: Low back pain, order states right hip pain patient suspects osteoarthritis COMPARISON: 09/28/2023 TECHNIQUE: AP view of the pelvis and 2 views of right hip. FINDINGS: Moderate degenerative changes in bilateral hips with superolateral joint space narrowing and hypertrophic change, left greater than right, suggestive of bilateral femoro-acetabular impingement. Degenerative changes left hip. Degenerative changes bilateral sacroiliac joints. Levoscoliosis lumbar spine. Articulation between left L5 transverse process and left sacral ala. Surgical clips left lower quadrant, XR/XR hip RT w PEL1V IMPRESSION: 1. Moderate degenerative changes bilateral hips with superolateral joint space narrowing and hypertrophic change, left greater than right, suggestive of bilateral femoro-acetabular impingement. 2. Degenerative changes bilateral sacroiliac joints. 3. Articulation between left L5 transverse process and left sacral ala. This study was presented today March 28, 2024 for interpretation. Stat results provided at this time as requested by referring provider. 1. Electronically signed by: Rosalie Magana MD 03/28/2024 01:11 PM EST Dictated By: Rosalie Magana MD Signed By: <Electronically signed by Rosalie Magana MD in OV> 03/28/24 1311 DD/ 1020 TD/TT: 03/27/24 1041 Mortar Man: [facility] IMG XR PROCEDURES Edited Resu lt - Final * POCT HGB A1C (03/21/2024 11:14 AM EST) Hemoglobin A1C 5.9 4.0 - 6.0 % QC Media Lot # [id number] Lot# Expiration Date 06,564 Blood 03/21/2024 11:1 4 AM EST [facility] POINT OF CARE TEST ENTER/EDIT ORDERABLES Final Result * POCT Glucose (03/21/2024 11:14 AM EST) Glucose Blood, POC 130 60 - 200 mg/dL QC Media Lot # [id number] Lot# Expiration Date ,202,976 Blood Capillary blood specimen / Unknown 03/21/2024 11:14 AM EST [facility] POINT OF CARE TEST ENTER/EDIT ORDERABLES Final Result * (ABNORMAL) Lipid Panel, Standard (09/21/2023 12:12 PM EDT) Triglycerides 139 <150 mg/dL [facility] Comment:Desirable Triglyceri de: less than 150 mg/dLBorderline High Triglyceride 150-199 mg/dLHigh Triglyceride: 200-499 mg/dLVery High Triglyceride: greater than or equal to 5OO mg/dL Cholesterol 206(H) <200 mg/dL [facility] Comment:Desirable Cholestero l: less than 200 mg/dLBorderline High Cholesterol: 200-239 mg/dLHigh Cholesterol: greater than 239 mg/dL LDL Cholesterol Calculated 129(H) <100 mg/dL [facility] Comment:Desirable LDL: less than 100 mg/dLNear Optimal/Above Optimal LDL: 110- 129 mg/dLBorderline High LDL: 130-159 mg/dLHigh LDL: 160-189 mg/dLVery High LDL: greater than or equal to 190 mg/dL HDL Cholesterol 50 >40 mg/dL [facility] Comment:Desirable HDL: great er than 40 mg/dL Note: This HDL assay may give artificially low results in patients with liver disease. Blood Venous blood specimen / Unknown 09/21/2023 12:12 PM EDT 09/21/2023 1:12 PM EDT [facility] LAB BLOOD ORDERABLES Final Re sult [facility] [address] [place] [phone] * BI Mammogram Screening Tomosynthesis Bilateral (07/04/2023 2:20 PM EDT) Anatomical Region Laterality Modality Breast Bilateral Mammography 07/04/2023 2:20 PM EDT Narrative 07/30/2023 11:01 AM EDT ? [facility] ? [address] ?[place], [place] [address] ? Mammography Report ? Signed ? Patient: Aldo Toussaint,Amna ?MR#: M ?? [id number] ? : 1960 ?Acct:[id number] ? Age/Sex: 63 / F ?ADM Date: 07/04/23 ? Loc: HO.MAMMO ? Attending Dr: Luly [place] BUSINESS SERVICES TECH ? Ordering Physician: [place],Luly BUSINESS SERVICES TECH ?Results: 1Nega ?? tive ? Date of Service: 07/04/23 ?Follow Up: 1 Year From Orig ?? inal Mammogram ? Procedure(s): MM tomosynthesis screening BI ?? Accession Number(s): [id number] ? cc: Maxwell,Luly BUSINESS SERVICES TECH ? EXAMINATION: ?? MM SCREENING DIGITAL BREAST TOMOSYNTHESIS, BILATERAL ? CLINICAL INFORMATION: ? Screening. Asymptomatic. ? COMPARISON: ?? Mammography: This study is compared with prior exams dating back to ?? 2020. ? TECHNIQUE: ?? Digital breast tomosynthesis is performed in both the craniocaudal and ?? mediolateral oblique views along with computer-aided detection (CAD). ?? Synthesized 2D images are generated from the tomosynthesis. ? FINDINGS: ?? There are scattered areas of fibroglandular density (ACR BI-RADS breast ?? composition Category b). ? There are no significant masses, abnormal calcifications, or other ?? abnormalities. ? MM/MM tomosynthesis screening BI ?? IMPRESSION: ?? No mammographic evidence of malignancy. ? ASSESSMENT: ? BI-RADS BI-RADS 1 - Negative ? RECOMMENDATION: ?? Routine annual mammography screening. ? 1 year F/U ? This examination should not preclude the clinical evaluation of a ?? suspicious palpable abnormality. ? This patient's information was entered into a reminder system with a ?? target due date for their next mammogram. ? Dictated By: ?Bernice Bangura MD ? Signed By: ?<Electronically signed by Bernice Bangura MD in OV> ? 07/30/23 1057 ? DD/ 1420 ? TD/TT: ? Mortar Man: ? Procedure Note Belkis, Image - 07/30/2023 [facility] [address] [place] [address] Mammography Report Signed Patient: Nicole Moreau#: M [id number] : 9Acct:[id number] Age/Sex: 63 / FADM Date: 07/04/23 Loc: SHE Attending Dr: Luly Arreola BUSINESS SERVICES TECH Ordering Physician: Luly Arreola FNPResults: 1Nega tive Date of Service: 07/04/23Follow Up: 1 Year From Orig inal Mammogram Procedure(s): MM tomosynthesis screening BI Accession Number(s): [id number] cc: Luly Arreola BUSINESS SERVICES TECH EXAMINATION: MM SCREENING DIGITAL BREAST TOMOSYNTHESIS, BILATERAL CLINICAL INFORMATION: Screening. Asymptomatic. COMPARISON: Mammography: This study is compared with prior exams dating back to 2020. TECHNIQUE: Digital breast tomosynthesis is performed in both the craniocaudal and mediolateral oblique views along with computer-aided detection (CAD). Synthesized 2D images are generated from the tomosynthesis. FINDINGS: There are scattered areas of fibroglandular density (ACR BI-RADS breast composition Category b). There are no significant masses, abnormal calcifications, or other abnormalities. MM/MM tomosynthesis screening BI IMPRESSION: No mammographic evidence of malignancy. ASSESSMENT: BI-RADS BI-RADS 1 - Negative RECOMMENDATION: Routine annual mammography screening. 1 year F/U This examination should not preclude the clinical evaluation of a suspicious palpable abnormality. This patient's information was entered into a reminder system with a target due date for their next mammogram. Dictated By: Bernice Bangura MD Signed By: <Electronically signed by Bernice Bangura MD in OV> 07/30/23 1057 DD/ 1420 TD/TT: Mortar Man: [facility] [place] BUSINESS SERVICES TECH IMG BI PROCEDURES Final Resul t * THINPREP TIS PAP AND HPV mRNA E6/E7, CT/NG, TRICH (11/06/2021 10:37 AM EDT) Chlamydia trachomatis RNA, TMA, Urogenital NOT DETECTED NOT DETECTED [facility] Clinical Information: None given [facility] COMMENT SEE COMMENT [facility] Comment: The analytical performance characteristics of this assay, when used to test SurePath(TM) specimens have been determined by [employer]. The modifications have not been cleared or approved by the FDA. This assay has been validated pursuant to the CLIA regulations and is used for clinical purposes. ?? For additional information, please refer to https://education.[employer]/faq/RCF067 (This link is being provided for information/ educational purposes only.) ?? COMMENT SEE COMMENT [facility] Comment: EXPLANATORY NOTE: ? The Pap is a screening test for cervical cancer. It is ?? not a diagnostic test and is subject to false negative ?? and false positive results. It is most reliable when a ?? satisfactory sample, regularly obtained, is submitted ?? with relevant clinical findings and history, and when ?? the Pap result is evaluated along with historic and ?? current clinical information. ?? COMMENT: This Pap test has been evaluated with computer assisted technology. [facility] Planing Machine Operator: SEE COMMENT [facility] Comment: CXP, CT(ASCP) CT screening location: [address] ??[id number] HPV nRNA E6/E7 Not Detected Not Detected [facility] Comment: Methodology: Product Finisher-Mediated Amplification This assay detects E6/E7 viral messenger RNA (mRNA) from 14 high-risk HPV types (16,18,31,33,35,39,45,51,52,56,58,59,66,68). ? Cervical sources are required for HPV testing. If a vaginal source from a patient who has had a total hysterectomy with removal of cervix was ?? submitted, please contact the testing laboratory for alternative testing options. ?? For additional information, please refer to http://[employer]/faq/MJC090b0 (This link if provided for information/ educational purposes only.) Interpretation/Res ult: SEE COMMENT [facility] Comment: Negative for intraepithelial lesion or malignancy. Atrophic pattern; predominantly parabasal cells LMP: NONE GIVEN [facility] Neisseria gonorrhoeae RNA, TMA, Urogenital NOT DETECTED NOT DETECTED [facility] Prev. BX: NONE GIVEN [facility] Prev. PAP: NONE GIVEN [facility] SOURCE: None given [facility] Statement Of Adequacy: SATISFACTORY FOR EVALUATION [facility] Trichomonas vaginalis, QL, TMA, PAP Vial NOT DETECTED NOT DETECTED [facility] Comment: The analytical performance characteristics of this assay have been determined by [employer]. The modifications have not been cleared or approved by the FDA. This assay has been validated pursuant to the CLIA regulations and is used for clinical purposes. ?? For additional information, please refer to http://[employer]/ faq/Trichomonastma (This link is being provided for information/ educational purposes only.) ?? NO COLLECTION DATE RECEIVED. WE HAVE USED THE DATE THE SPECIMEN WAS RECEIVED BY THIS LABORATORY THE COLLECTION DATE. IF THIS IS INCORRECT, PLEASE CONTACT CLIENT SERVICES. PHONE NUMBER: ?? 11/06/2021 10:3 7 AM EDT [place] Soria NP LAB PATHOLOGY ORDERABLES Final Result Performing Organization Address [facility]/ZIP Co de Phone Number [facility] [address] * HEPATITIS C AB W/REFL TO HCV RNA, QN, PCR (09/17/2021 10:15 AM EDT) HEPATITIS C ANTIBODY NON-REACT YARIEL NON-REACT YARIEL [facility] INDEX <0.02 <1.00 [facility] Comment: ?? HCV antibody was non-reactive. There is no laboratory ?? evidence of HCV infection. ?? In most cases, no further action is required. However, if recent HCV exposure is suspected, a test for HCV RNA (test code 53607) is suggested. ?? For additional information please refer to http://[employer].[facility]/faq/PHP22q7 (This link is being provided for informational/ educational purposes only.) ?? 09/17/2021 10:1 5 AM EDT [place]ia Soria NP HISTORICAL/NON ORDERABLE LABS F inal Result Performing Organization Address [facility] Co de Phone Number [facility] [address] from Last 3 Months or Most Recently Relevant to Health Maintenance Insurance [place] [address] [place] [id number] [facility] MEDICAID STAND ADULT [address] [place] [id number] Care Teams Collections Technician Relationship Specialty Start Date End Date Luly Arreola FNP [address] [place] [address] PCP - General Family Medicine 12/17/21
[2024-05-23 17:07] LABS: CT PCR NOT DETECTED (Not Detect.); NG PCR NOT DETECTED (Not Detect.)
[2024-05-24 12:39] LABS: Bacterial Vaginosis PCR POSITIVE (Negative); Candida Group PCR NOT DETECTED (Not Detect); Candida glab krusei PCR NOT DETECTED (Not Detect); Trichomonas vaginalis PCR NOT DETECTED (Not Detect)
== END 2024-05-23 12:33 | disposition home or self-care (01) ==
LOC: HO.HHCL 12:32
PROVIDERS: Visit Provider Registered Nurse
DX: R68.89 Other general symptoms and signs (principal); R53.82 Chronic fatigue, unspecified; N89.8 Other specified noninflammatory disorders of vagina; Z20.2 Contact with and (suspected) exposure to infections with a predominantly sexual mode of transmission
CPT/HCPCS: 80048; 81515; 84443; 85025; 87491; 87591

== ENCOUNTER 2024-07-09 13:47 | Outpatient (REF) | payer MEDICARE, MEDICAID, SELFPAY ==
--- OUTSIDE RECORDS SUMMARY | 2024-07-09 16:05 | XMS_ITS | Encounter Summary ---
Author Organization [facility] Address [address] [place] [address] 7 [place] [address] Care Team Providers Care Lock Assembler Name Role Phone Luly Arreola MEDICAL RECORDS SPECIALIST Primary Care Provider [phone] Reason for Visit * Reason Comments Filling Encounter Details Date Type Department Care Team ([facility] Contact Info) Description 11/22/2023 2:00 PM EDT Office Visit [facility] AD[facility] [address] [place] [address] Greg Beltran, CHICHO [address] [place], [place] [id number] Social History Tobacco Use Types Packs/Day Years [...] Sign Reading Time Taken Comments Blood Pressure 132/68 11/22/2023 1:59 PM EDT Pulse - - Temperature - - Respiratory Rate - - Oxygen Saturation - - Inhaled Oxygen Concentration - - Weight - - Height - - Body Mass Index - - documented in this encounter Progress Notes * Greg Beltran DMD - 11/22/2023 2:00 PM EDT Tooth#14: 0.5 carp of 2% Lido with 1:100,000epi, buccal infiltration, existed caries is being excavated, deep prep, Limelite is placed, etch and lux, composite A-3 is packed, carved, and smoothed. Pt satisfied NV: exo#1,12 with [place] Susan documented in this encounter Plan of Treatment Upcoming Encounters Date Type Department Care Team (Late st Contact Info) Description 08/22/2024 2:00 PM EDT Office Visit [facility] MEDIC[facility] [address] [place] [address] [place], Luly, MEDICAL RECORDS SPECIALIST [address] [place] [address] documented as of this encounter Procedures Procedure Name Priority Date/Time Associated Diagnosis Comments 14 M RESIN-BASED COMPOSITE - 1 SURF, POSTERIOR Routine 11/22/2023 2:00 PM EDT CASE PRESENTATION, DETAILED AND EXTENSIVE TREATMENT PLANNING Routine 11/22/2023 2:00 PM EDT documented in this encounter Visit Diagnoses Not on filedocumented in this encounter Additional Health Concerns Assessment Noted Time PHQ-9 Depression Total Score: 0 09/21/19 24 11:38 AM EDT documented as of this encounter Care Teams Lock Assembler Relationship Specialty Start Date End Date Luly Arreola FNP [address] [place] [id number] PCP - General Family Medicine 12/17/21 documented as of this encounter
--- OUTSIDE RECORDS SUMMARY | 2024-07-09 16:06 | XMS_ITS | Encounter Summary ---
Author Organization [employer] Address [address] [place] [address] Care Team Providers Care Mill Platform Supervisor Name Role Phone Luly Arreola MUSIC MIXER Primary Care Provider [phone] Encounter Details Date Type Department Care Team ([facility] st Contact Info) Description 06/15/2024 Orders Only [facility] [address] [place], [place] [id number] Provider, MD Liat Social History Tobacco Use Types Packs/Day Years [...] Description 08/22/2024 2:00 PM EDT Office Visit [facility] MEDICINE [address] [place] [address] Luly Arreola FNP [address] [place] [address] documented as of this encounter Procedures Procedure Name Priority Date/Time Associated Diagnosis Comments COLONOSCOPY Routine 02/09/2024 12:38 PM EDT documented in this encounter Results * Hm Colonoscopy (02/09/2024 12:38 PM EDT) us Historical Provider HEALTH MAINTENANCE Final Result documented in this encounter Visit Diagnoses Not on filedocumented in this encounter Additional Health Concerns Assessment Noted Time PHQ-9 Depression Total Score: 18 024 10:12 AM EST documented as of this encounter Care Teams Mill Platform Supervisor Relationship Specialty Start Date End Date Luly Arreola FNP [address] [place] [address] PCP - General Family Medicine 12/17/21 documented as of this encounter
--- OUTSIDE RECORDS SUMMARY | 2024-07-09 16:06 | XMS_ITS | Clinical Summary ---
Author Organization [employer] Address [address] [facility] 7[address] [place] [address] Care Team Providers Care Donor Recruitment Manager Name Role Phone Luly Arreola PRECINCT CAPTAIN Primary Care Provider [phone] Allergies Active Allergy Reactions Criticality Noted Date Comments Grider 08/18/2023 Prunus Persica 08/18/2023 Medications * This document contains information received from the source organization and may not represent a complete record from that organization. Blood Pressure kitIndications:Zee tamanna hypertension Use to monitor blood pressure at home 1 kit 4 Active cholecalciferol (Vitamin D-3) 25 MCG (1000 UT) capsuleIndications :Vitamin D deficiency Take 1 capsule (25 mcg) by mouth Once per day. 60 capsule 3 4 Active escitalopram (Lexapro) 5 MG tabletIndications: Anxious depression take 1 tablet by oral route every day for depressive symptoms 90 tablet 1 4 Active Linzess 145 MCG capsule Take 1 capsule by mouth in the morning. 4 Active amLODIPine (Norvasc) 10 MG tabletIndications: Primary hypertension Take 1 tablet (10 mg) by mouth Once per day. 90 tablet 3 5 026 Active rosuvastatin (Crestor) 20 MG tabletIndications: Mixed hyperlipidemia Take 1 tablet (20 mg) by mouth Once per day. 90 tablet 3 5 026 Active Active Problems Problem Noted Date Diagnosed Date [...] Eye Exam: Referred 08/2023--> previously followed by [facility]. Hx of cataract surgery. Decreased GFR 07/22/2022 Prediabetes 07/22/2022 Vitamin D deficiency 07/22/2022 Moderate episode of recurrent major depressive d isorder 07/22/2022 Overview (06/28/2023): Lexapro Declines OP therapy Support through [facility] Assessment & Plan (06/28/2023 9:09 PM EST): INCREASE lexapro to 10mg Contact HC if sx worsen or experiencing thoughts of SI or self harm. Pt has [facility] crisis contact information Resolved Problems Problem Noted [...] Encounters Date Type Department Care Team Description 06/15/2024 Orders Only [facility] CHC MED & PEDS [address] [place] [address] Provider, MD Liat 06/14/2024 9:00 AM EST Clinical Support [facility] MEDICINE [address] [place] [phone] Iker Collins, PharmD Primary hypertension (Primary Dx); Mixed hyperlipidemia 06/06/2024 11:00 AM EST Clinical Support [address] [address] Adri Rodriguez, SHYLA Essential hypertension [I10] 06/06/2024 Travel 05/28/2024 Orders Only [facility] WALK-IN CENTER [address] [place] [address] Luly Arreola FNP Bacterial vaginosis (Primary Dx) 05/23/2024 11:30 AM EST Office Visit [address] [address] Luly Arreola FNP Vaginal discharge (Primary Dx); Essential hypertension; Pelvic pain; Encounter for screening for infections with a predominantly sexual mode of transmission 05/23/2024 Travel 04/30/[address] [address] Adri Rodriguez, casino surveillance officer Question 04/30/2024 Orders Only [facility] [address] [facility] [address] [facility] (Primary Dx); Mixed hyperlipidemia; Primary hypertension 04/23/2024 9:00 AM EST Telemedicine [facility] [address] [facility] [address] Iker Collins PharmD Essential hypertension (Primary Dx); Mixed hyperlipidemia; Decreased GFR 04/12/2024 1:30 PM EST Clinical Support [facility] [address] [place] [address] Adri Rodriguez, SHYLA Forgetfulness 04/12/2024 Travel 04/11/2024 Telephone [facility] [address] [place] [address] [place] Luly [facility] from Last 3 Months Immunizations Name Administration Dates Next Due INFLUENZA INJECTABLE QUADRIV ALANT CCIIV4 MDCK Multi-dose vial 04/05/2019 Influenza, IIV3, injectable 01/19/2023, 2 Pfizer Covid-19 Vaccine 12+ 05/11/2023 Tdap 01/18/2019,06/18/2008 Zoster, Recombinant 04/05/2019,01/18/2019 Family [...] Sign Reading Time Taken Comments Blood Pressure 163/85 06/06/2024 11:39 AM EST Pulse 64 06/06/2024 11:39 AM EST Temperature 35.8 ??C (96.4 ??F) 05/23/2024 1 1:43 AM EST Respiratory Rate 18 06/06/2024 11:3 9 AM EST Oxygen Saturation 99% 06/06/2024 11: 39 AM EST Inhaled Oxygen Concentration - - Weight 89.3 kg (196 lb 12.8 oz) 025 11:43 AM EST Height 162.6 cm (5' 4 ) 05/23/2024 11:4 3 AM EST Body Mass Index 33.78 05/23/2024 11:43 AM EST Plan of Treatment Upcoming Encounters Date Type Department Care Team (Late st Contact Info) Description 08/22/2024 2:00 PM EDT Office Visit [facility] MEDICINE [address] [place] [address] [place] Luly [facility] [address] [place] [address] Health Maintenance Due Date Last Done Comments CT Colonography 1960 FIT DNA/Cologuard 1960 FIT 1960 FOBT [...] exists SDOH Screening 03/21/2025 03/21/2024 Tobacco Screening 05/25/2025 05/25/2024 Dental X-Ray: Full Mouth 08/18/2026 08/18/2023 Cervical Cancer Screening 11/06/2026 HPV/Cotest 11/06/2026 11/06/2021 Lipid Panel 09/20/2028 09/21/2023, 04/25, 09/17/2021, Additional history exists DTaP/Tdap/Td Vaccines (3 - Td or Tdap) 01/18/2029 01/18/2019, 06/18/2008 Colonoscopy 02/08/2034 02/09/2024 Colorectal Cancer Screening 02/08/2034 Zoster Vaccines Completed 04/05/2019, 01/18/2019 Hepatitis C [...] Routine 05/23/2024 1 2:35 PM EST Forgetfulness CHLAMYDIA/N. GONORRHOEAE RNA, TMA, UROGENITAL Routine 05/23/2024 12:35 PM EST Vaginal discharge Encounter for screening for infections with a predominantly sexual mode of transmission POCT URINALYSIS DIPSTICK Routine 05/23/2024 12:21 PM EST Vaginal discharge BACTERIAL VAGINOSIS PANEL Routine 05/23/2024 12:11 PM EST Vaginal discharge POCT GLYCATED HEMOGLOBIN, TOTAL Routine 03/21/2024 11:14 AM EST Prediabetes PROPHYLAXIS - ADULT Routine 02/23/2024 1 :00 PM EDT Dental calculus HM COLONOSCOPY Routine 02/09/2024 12:38 PM EDT LIPID PANEL, STANDARD Routine 09/21/2023 12:12 PM EDT Mixed hyperlipidemia INTRAORAL - COMPLETE SERIES OF RADIOGRAPHIC IMAGES Routine 08/18/2023 10:30 [...] Free T4 0.99 0.32 - 4.0 uIU/mL [facility] Blood Venous blood specimen / Unknown 05/23/2024 12:35 PM EST 05/23/2024 1:23 PM EST [facility] PRECINCT CAPTAIN LAB BLOOD ORDERABLES Final Re sult [facility] [address] [place] [phone] * CBC auto differential (05/23/2024 12:35 PM EST) White Blood Count 8.6 4.8 - 10.8 X10*3/uL [facility] Red Blood Count 4.85 4.20 - 5.50 X10*6/uL [facility] Hemoglobin 14.5 12.0 - 16.0 g/dl [facility] Hematocrit 43.9 37.0 - 47.0 % [facility] Mean Corpuscular Volume 90.5 80.0 - 98.0 fL [facility] Mean Corpuscular Hemoglobin 29.9 27.0 - 33.0 pg [facility] Mean Corpuscular HGB Conc 33.0 31.0 - 35.0 g/dl [facility] Red Cell Distribution Width 12.9 11.0 - 16.0 % [facility] Platelet Count 249 160 - 400 X10*3/uL [facility] Mean Platelet Volume 11.2 9.4 - 12.3 fL [facility] Neutrophils Percent Auto 62.5 45 - 73 % [facility] Imm Gran Pct Auto 0.3 0.0 - 0.4 % [facility] Lymphocytes Percent Auto 29.0 20 - 40 % [facility] Monocytes Percent Auto 6.5 2 - 11 % [facility] Eosinophils Percent Auto 1.2 0 - 4 % [facility] Basophils Percent Auto 0.5 0 - 2 % [facility] NRBC Pct Auto 0.0 0.0 - 0.2 /100WBC [facility] Neutrophils Absolute Auto 5.4 2.0 - 8.3 x10*3/uL [facility] Imm Gran Abs Auto 0.03 0.00 - 0.03 X10*3/uL [facility] Lymphocytes Absolute Auto 2.5 1.2 - 4.9 X10*3/uL [facility] Monocytes Absolute Auto 0.6 0.1 - 1.2 X10*3/uL [facility] Eosinophils Absolute Auto 0.1 0.0 - 0.4 X10*3/uL [facility] Basophils Absolute Auto 0.0 0.0 - 0.2 X10*3/uL [facility] NRBC Abs Auto 0.000 0.0 - 0.012 X10*3/uL [facility] Blood Venous blood specimen / Unknown 05/23/2024 12:35 PM EST 05/23/2024 1:23 PM EST [facility] PRECINCT CAPTAIN LAB BLOOD ORDERABLES Final Re sult [facility] [address] [place] [address] [phone] * Chlamydia/N. Gonorrhoeae RNA, TMA, Urogenitial (05/23/2024 12:35 PM EST) CT PCR NOT DETECTED Not Detect. [facility] Comment:A not detected test result does not exclude the possibilityof infection because test results can be affected byimproper specimen collection, concurrent antibiotic therapy,or the number of organisms in the specimen which may bebelow the sensitivity of the test. As with many diagnostictests, results from the Xpert CT/NG assay should beinterpreted in conjunction with other laboratory andclinical data available to the clinician.Xpert CT/NG performance has not been evaluated in patientsless than 14 years of age. The assay should not be used forthe evaluationof suspected sexual abuse or for other medico-legalindications. Additional testing is recommended in anycircumstance when false positive or false negative resultscould lead to adverse medical, social or psychologicalconsequences. NG PCR NOT DETECTED Not Detect. [facility] Comment:A not detected test result does not exclude the possibilityof infection because test results can be affected byimproper specimen collection, concurrent antibiotic therapy,or the number of organisms in the specimen which may bebelow the sensitivity of the test. As with many diagnostictests, results from the Xpert CT/NG assay should beinterpreted in conjunction with other laboratory andclinical data available to the clinician.Xpert CT/NG performance has not been evaluated in patientsless than 14 years of age. The assay should not be used forthe evaluationof suspected sexual abuse or for other medico-legalindications. Additional testing is recommended in anycircumstance when false positive or false negative resultscould lead to adverse medical, social or psychologicalconsequences. Swab Vaginal structure / Unknown 05/23/2024 12:35 PM EST 05/23/2024 1:13 PM EST Narrative [facility] - 05/23/2024 5:08 PM EST Urine [facility] LAB MICROBIOLOGY - GENERAL OR DERABLES Final Result Performing Organization Address [facility] Co de Phone Number [facility] [address] [place] [address] [phone] * (ABNORMAL) Basic Metabolic Panel (05/23/2024 12:35 PM EST) Sodium 138 135 - 145 mmol/L [facility] Potassium 4.3 3.3 - 5.1 mmol/L [facility] Chloride 106 96 - 108 mmol/L [facility] Carbon Dioxide 26 22 - 29 mmol/L [facility] Anion Gap 10(L) 12 - 20 [facility] Urea Nitrogen (BUN) 12 9 - 16 mg/dL [facility] Creatinine, Serum 0.93 0.5 - 1.4 mg/dL [facility] Estimated Glomerular Filt Rate >60 [facility] Comment:Chronic Kidney Disea se: Estimated GFR < 60 mL/min/1.52d9Sabnbi Kidney Disease: Estimated GFR < 15 mL/min/1.73m2 Glucose 100 60 - 115 mg/dL [facility] Calcium 9.6 8.4 - 10.2 mg/dL [facility] Blood Venous blood specimen / Unknown 05/23/2024 12:35 PM EST 05/23/2024 1:23 PM EST [facility] LAB BLOOD ORDERABLES Final Re sult Performing Organization Address [facility] Co de Phone Number [facility] [address] [place] [address] [phone] * POCT Urinalysis (05/23/2024 12:21 PM [...] Media Lot # [id number] Lot# Expiration Date [id number] Urine 05/23/2024 12:2 1 PM EST [facility] POINT OF CARE TEST ENTER/EDIT ORDERABLES Final Result * (ABNORMAL) Bacterial Vaginosis (05/23/2024 12:11 PM EST) TRICHOMONAS VAGINALIS DETECTION BY PCR NOT DETECTED Not Detect [facility] BACTERIAL VAGINOSIS DETECTION BY PCR POSITIVE(A) Negative [facility] Comment:The BV organism targ ets of the Xpert Xpress MVP test can becommensal in women; Xpert Xpress MVP positive results forbacterial vaginosis should be considered in conjunction withother clinical and patient information to determine thedisease status. Organisms that are not detected by the XpertXpress MVP test have also been reported to be associatedwith BV and aerobic vaginitis.The Xpert Xpress MVP test performance has not been evaluatedin patients under the age of 14. DORITA [employer] DETECTION BY PCR NOT DETECTED Not Detect [facility] Dorita glab krusei PCR NOT DETECTED Not Detect [facility] Swab Vaginal structure / Unknown 05/23/2024 12:11 PM EST 05/23/2024 6:18 PM EST [facility] LAB MICROBIOLOGY - GENERAL OR DERABLES Final Result Performing Organization Address City/State/[facility] Co de Phone Number [facility] [address] [place] [phone] * POCT HGB A1C (03/21/2024 11:14 AM EST) Hemoglobin A1C 5.9 4.0 - 6.0 % QC Media Lot # [id number] Lot# Expiration Date Blood 03/21/2024 11:1 4 AM EST [facility] POINT OF CARE TEST ENTER/EDIT ORDERABLES Final Result * Hm Colonoscopy (02/09/2024 12:38 PM EDT) Historical Provider HEALTH MAINTENANCE Final Result * (ABNORMAL) Lipid Panel, Standard (09/21/2023 12:12 PM EDT) Triglycerides 139 <150 mg/dL [facility] Comment:Desirable Triglyceri de: less than 150 mg/dLBorderline High Triglyceride 150-199 mg/dLHigh Triglyceride: 200-499 mg/dLVery High Triglyceride: greater than or equal to 5OO mg/dL Cholesterol 206(H) <200 mg/dL [facility] Comment:Desirable Cholestero l: less than 200 mg/dLBorderline High Cholesterol: 200-239 mg/dLHigh Cholesterol: greater than 239 mg/dL LDL Cholesterol Calculated 129(H) <100 mg/dL [facility] Comment:Desirable LDL: less than 100 mg/dLNear Optimal/Above Optimal LDL: 110- 129 mg/dLBorderline High LDL: 130-159 mg/dLHigh LDL: 160-189 mg/dLVery High LDL: greater than or equal to 190 mg/dL HDL Cholesterol 50 >40 mg/dL [facility] Comment:Desirable HDL: great er than 40 mg/dL Note: This HDL assay may give artificially low results in patients with liver disease. Blood Venous blood specimen / Unknown 09/21/2023 12:12 PM EDT 09/21/2023 1:12 PM EDT [facility] PRECINCT CAPTAIN LAB BLOOD ORDERABLES Final Re sult [facility] [address] [place], [place] [phone] * BI Mammogram Screening Tomosynthesis Bilateral (07/04/2023 2:20 PM EDT) Anatomical Region Laterality Modality Breast Bilateral Mammography 07/04/2023 2:20 PM EDT Narrative 07/30/2023 11:01 AM EDT ? [facility] ? [address] ?[place] [address] ? Mammography Report ? Signed ? Patient: Aldo Toussaint,Amna ?MR#: M ?? [id number] ? : 1960 ?Acct:[id number] ? Age/Sex: 63 / F ?ADM Date: 07/04/23 ? Loc: HO.MAMMO ? Attending Dr: Luly Arreola PRECINCT CAPTAIN ? Ordering Physician: Luly Arreola PRECINCT CAPTAIN ?Results: 1Nega ?? tive ? Date of Service: 07/04/23 ?Follow Up: 1 Year From Orig ?? inal Mammogram ? Procedure(s): MM tomosynthesis screening BI ?? Accession Number(s): [id number] ? cc: Luly Arreola PRECINCT CAPTAIN ? EXAMINATION: ?? MM SCREENING DIGITAL BREAST [...] ? Signed By: ?<Electronically signed by Bernice aBngura MD in OV> ? 07/30/231056 ? DD/ 1420 ? TD/TT: ? Assistant Plant Controller: ? Procedure Note Belkis, Image - 07/30/2023 [facility] [address] [place] [address] Mammography Report Signed Patient: Nicole Moreau#: M [id number] : 9Acct:[id number] Age/Sex: 63 / FADM Date: 07/04/23 Loc: SHE Attending Dr: Luly Arreola PRECINCT CAPTAIN Ordering Physician: Luly Arreola FNPResults: 1Nega tive Date of Service: 07/04/23Follow Up: 1 Year From Orig inal Mammogram Procedure(s): MM tomosynthesis screening BI Accession Number(s): [id number] cc: Luly Arreola PRECINCT CAPTAIN EXAMINATION: MM SCREENING DIGITAL BREAST TOMOSYNTHESIS, BILATERAL [...] in OV> 07/30/23 1057 DD/ 1420 TD/TT: Assistant Plant Controller: [facility] PRECINCT CAPTAIN IMG BI PROCEDURES Final Resul t * THINPREP TIS PAP AND HPV mRNA E6/E7, CT/NG, TRICH (11/06/2021 10:37 AM EDT) Chlamydia trachomatis RNA, TMA, Urogenital NOT DETECTED NOT DETECTED [facility] Clinical Information: None given [facility] COMMENT SEE COMMENT [facility] Comment: The analytical performance characteristics of this assay, when used to test SurePath(TM) specimens have been determined by [employer]. The modifications have not been cleared or approved by the FDA. This assay has been validated pursuant to the CLIA regulations and is used for clinical purposes. ?? For additional information, please refer to https://education.[facility]/faq/REN860 (This link is being provided for information/ [...] has been evaluated with computer assisted technology. Hupu Language Instructor: SEE COMMENT [facility] Comment: CXP, CT(ASCP) CT screening location: [address] ??[phone] HPV nRNA E6/E7 Not Detected Not Detected [facility] [employer] Comment: Methodology: [employer]-Mediated Amplification This assay detects E6/E7 viral messenger RNA (mRNA) from 14 high-risk HPV types (16,18,31,33,35,39,45,51,52,56,58,59,66,68). ? Cervical sources are required for HPV testing. If a vaginal source from a patient who has had a total hysterectomy with removal of cervix was ?? submitted, please contact the testing laboratory for alternative testing options. ?? For additional information, please refer to http://[employer].[facility]/faq/KHV468m2 (This link if provided for information/ educational [...] of this assay have been determined by [employer]. The modifications have not been cleared or approved by the FDA. This assay has been validated pursuant to the CLIA regulations and is used for clinical purposes. ?? For additional information, please refer to http://[employer].[facility]/ faq/Trichomonastma (This link is being provided for information/ educational purposes only.) ?? NO COLLECTION DATE RECEIVED. WE HAVE USED THE DATE THE SPECIMEN WAS RECEIVED BY THIS LABORATORY THE COLLECTION DATE. IF THIS IS INCORRECT, PLEASE CONTACT CLIENT SERVICES. PHONE NUMBER: ?? 11/06/2021 10:3 7 AM EDT us [place] Soria NP LAB PATHOLOGY ORDERABLES Final Result [facility] [address] * HEPATITIS C AB W/REFL TO HCV RNA, QN, PCR (09/17/2021 10:15 AM EDT) HEPATITIS C ANTIBODY NON-REACT [facility] NON-REACT [facility] INDEX <0.02 <1.00 [facility] Comment: ?? HCV antibody was non-reactive. There is no laboratory ?? evidence of HCV infection. ?? In most cases, no further action is required. However, if recent HCV exposure is suspected, a test for HCV RNA (test code 25350) is suggested. ?? For additional information please refer to http://[employer].[facility]/faq/CGG69n6 (This link is being provided for informational/ educational purposes only.) ?? 09/17/2021 10:1 5 AM EDT us [place] Soira NP HISTORICAL/NON ORDERABLE LABS F inal Result [facility] [address] from Last 3 Months or Most Recently Relevant to Health Maintenance Insurance MEDICARE [facility] STANDARD D[facility]AL[facility] MED[facility] STAND ADULT Care Teams Donor Recruitment Manager Relationship Specialty Start Date End Date Luly Arreola FNP [address] [place] [phone] PCP - General Family Medicine 12/17/21
--- OUTSIDE RECORDS SUMMARY | 2024-07-09 16:06 | XMS_ITS | Data Portability ---
Author Organization [facility] [address], OFFICE Address [address] [place] [address] Care Team Providers Care Transaction Advisory Services Manager Name Role Phone TIO MCDONALD Primary Care Provider Assessment Encounter Date Assessment Date Assessment LastModified [...] Modified Time Details Appointments None recorded. Lab pap, IG + reflex HR HPV (16+18) 2017 018 [place] [facility], [address], [address], [place], [address], 8 13:38:07 HbA1c (hemoglobi n A1c), blood 2017 018 [place] [facility], [address], [address], [place], [address], 8 14:20:37 CMP, serum or plasma 2017 018 [place] [facility], [address], [address], [place], [address], 8 14:20:38 vitamin D, 25-hydroxy , total, serum 2017 018 [place] [facility], [address], [address], [place], [address], 8 14:20:38 vitamin B12 + folate, serum or blood 2016 017 LUIS Not available 8 08:41:29 vitamin D, 25-hydroxy , total, serum 2016 LUIS Not available 8 08:41:31 HbA1c (hemoglobi n A1c), blood 2016 017 LUIS Not available 8 08:41:30 lipid panel, serum 2016 017 LUIS Not available 8 08:41:29 CBC w/ auto diff 2016 LUIS Not available 8 08:41:26 TSH + free T4, serum 2016 017 LUIS Not available 8 08:41:25 CMP, serum or plasma 2016 017 LUIS Not available 8 08:41:27 urinalysis complete, reflex culture 2016 LUIS Not available 8 08:41:28 Referral general surgeon referral 2017 LUIS Not available 8 05:00:56 Procedures None recorded. Surgeries None recorded. Imaging US, echocardio gram 2017 018 [facility], [address], [place], [address], 8 10:32:42 electrocar diogram 2017 018 [facility], [address], [place], [address], 8 10:41:43 MAMMO, screening, digital, bilateral 2017 018 [facility] [address], [address], [place], [address], 8 16:08:33 bone density 2017 018 [facility] [address], [address], [place], [address], 8 16:08:44 MAMMO, screening, digital, bilateral 2016 017 LUIS Not available 05:00:45 Medication Orders ergocalcif fabiano (vitamin D2) 1,250 mcg (50,000 unit) capsule 2017 018 INTERFACE [id number], [address] [place], [address], 14:20:25 Patient TargetsNo targets recorded. Patient Instructions Encounter Date Encounter Id Patient Instructions Last Modified By Organization Details Last Modified Time 05/25/2017 [id number] mamograf? ? ?a: sobre esta prueba - [mammogram: about this test] groque Not available 05/25/2017 14:22:21 groque Not available 2017 14:19:12 01/04/2018 [id number] presi? ? ?n arterial elevada: instrucciones de [...] uIU/m L 0.450- 4.500 Not Available [facility] ([facility]) [address] [facility], [place], [address], 05/05/2017 08:41:25 05/04/19 18 05/05/2017 TSH + free T4, serum T4,free(dire ct) 1.11 NG/dL 0.82-1 .77 Not Available [facility] ([facility]) [address] [facility] [place], [address], 05/05/2017 08:41:25 05/04/19 18 05/04/2017 CBC w/ auto diff WBC 6.3 x10e3 /uL 3.4-10 .8 Not Available [facility] ([facility]) [address] [facility], [place], [address], 05/05/2017 08:41:26 05/04/19 18 05/04/2017 CBC w/ auto diff RBC 4.66 x10e6 /uL 3.77-5 .28 Not Available [facility] ([facility]) [address] [place], [address], 05/05/2017 08:41:26 05/04/19 18 05/04/2017 CBC w/ auto diff hemoglobin 14.0 g/dL 11.1-1 5.9 Not Available [facility] ([facility]) [address] [facility] [place], [address], 05/05/2017 08:41:26 05/04/19 18 05/04/2017 CBC w/ auto diff hematocrit 43.6 % 34.0-4 6.6 Not Available [facility] ([facility]) [address] [place], [address], 05/05/2017 08:41:26 05/04/19 18 05/04/2017 CBC w/ auto diff MCV 94 fL 79-97 Not Available [facility] ([facility]) [address] [facility], [place], [address], 05/05/2017 08:41:26 05/04/19 18 05/04/2017 CBC w/ auto diff MCH 30.0 pg 26.6-3 3.0 Not Available [facility] ([facility]) [address] [facility], [place], [address], 05/05/2017 08:41:26 05/04/19 18 05/04/2017 CBC w/ auto diff MCHC 32.1 g/dL 31.5-3 5.7 Not Available [facility] ([facility]) [address] [facility], [place], [address], 05/05/2017 08:41:26 05/04/19 18 05/04/2017 CBC w/ auto diff RDW 13.4 % 12.3-1 5.4 Not Available [facility] ([facility]) [address] [facility], [place], [address], 05/05/2017 08:41:26 05/04/19 18 05/04/2017 CBC w/ auto diff platelets 251 x10e3 /uL 150-37 9 Not Available [facility] ([facility]) [address] [facility], [place], [address], 05/05/2017 08:41:26 05/04/19 18 05/04/2017 CBC w/ auto diff neutrophils 52 % not estab. Not Available [facility] ([facility]) [address] [facility], [place], [address], 05/05/2017 08:41:26 05/04/19 18 05/04/2017 CBC w/ auto diff lymphs 37 % not estab. Not Available [facility] ([facility]) [address] [facility], [place], [address], 05/05/2017 08:41:26 05/04/19 18 05/04/2017 CBC w/ auto diff monocytes 8 % not estab. Not Available [facility] ([facility]) [address] [place], [address], 05/05/2017 08:41:26 05/04/19 18 05/04/2017 CBC w/ auto diff eos 3 % not estab. Not Available [facility] ([facility]) [address] [place], [address], 05/05/2017 08:41:26 05/04/19 18 05/04/2017 CBC w/ auto diff basos 0 % not estab. Not Available [facility] ([facility]) [address] [place], [address], 05/05/2017 08:41:26 05/04/19 18 05/04/2017 CBC w/ auto diff immature cells ASSET PROTECTION ASSISTANT Not Available [facility] ([facility]) [address] [place], [address], 05/05/2017 08:41:26 05/04/19 18 05/04/2017 CBC w/ auto diff neutrophils (absolute) 3.2 x10e3 /uL 1.4-7. 0 Not Available [facility] ([facility]) [address] [place], [address], 05/05/2017 08:41:26 05/04/19 18 05/04/2017 CBC w/ auto diff lymphs (absolute) 2.3 x10e3 /uL 0.7-3. 1 Not Available [facility] ([facility]) [address] [place], [address], 05/05/2017 08:41:26 05/04/19 18 05/04/2017 CBC w/ auto diff monocytes(ab solute) 0.5 x10e3 /uL 0.1-0. 9 Not Available [facility] ([facility]) [address] [place], [address], 05/05/2017 08:41:26 05/04/19 18 05/04/2017 CBC w/ auto diff eos (absolute) 0.2 x10e3 /uL 0.0-0. 4 Not Available [facility] ([facility]) [address] [facility], [place], [address], 05/05/2017 08:41:26 05/04/19 18 05/04/2017 CBC w/ auto diff baso (absolute) 0.0 x10e3 /uL 0.0-0. 2 Not Available [facility] ([facility]) [address] [place], [address], 05/05/2017 08:41:26 05/04/19 18 05/04/2017 CBC w/ auto diff immature granulocytes 0 % not estab. Not Available [facility] ([facility]) [address] [facility], [place], [address], 05/05/2017 08:41:26 05/04/19 18 05/04/2017 CBC w/ auto diff immature grans (abs) 0.0 x10e3 /uL 0.0-0. 1 Not Available [facility] ([facility]) [address] [place], [address], 05/05/2017 08:41:26 05/04/19 18 05/04/2017 CBC w/ auto diff NRBC ASSET PROTECTION ASSISTANT Not Available [facility] ([facility]) [address] [place], [address], 05/05/2017 08:41:26 05/04/19 18 05/04/2017 CBC w/ auto diff hematology comments: ASSET PROTECTION ASSISTANT A hand- writt en panel /prof ile [...] ciate your busin ess. Not Available [facility] ([facility]) [address] [place], [address], 05/05/2017 08:41:26 05/04/19 18 05/05/2017 CMP, serum or plasm a glucose, serum 117 mg/dL 65-99 above high normal Not Available [facility] ([facility]) [address] [place], [address], 05/05/2017 08:41:27 05/04/19 18 05/05/2017 CMP, serum or plasm a BUN 15 mg/dL 6-24 Not Available [facility] ([facility]) [address] [place], [address], 05/05/2017 08:41:27 05/04/19 18 05/05/2017 CMP, serum or plasm a creatinine, serum 1.03 mg/dL 0.57-1 .00 above high normal Not Available [facility] ([facility]) [address] [place], [address], 05/05/2017 08:41:27 05/04/19 18 05/05/2017 CMP, serum or plasm a eGFR if nonafricn AM 60 mL/mi n/1.7 3 >59 Not Available [facility] ([facility]) [address] [place], [address], 05/05/2017 08:41:27 05/04/19 18 05/05/2017 CMP, serum or plasm a eGFR if africn AM 69 mL/mi n/1.7 3 >59 Not Available [facility] ([facility]) [address] [place], [address], 05/05/2017 08:41:27 05/04/19 18 05/05/2017 CMP, serum or plasm a BUN/creatini ne ratio 15 9-23 Not Available [facility] ([facility]) [address] [place], [address], 05/05/2017 08:41:27 05/04/19 18 05/05/2017 CMP, serum or plasm a sodium, serum 143 mmol/ L 134-14 4 Not Available [facility] ([facility]) [address] [place], [address], 05/05/2017 08:41:27 05/04/1905/05/2017 CMP, serum or plasm a potassium, serum 5.3 mmol/ L 3.5-5. 2 above high normal Not Available [facility] ([facility]) [address] [place], [address], 05/05/2017 08:41:27 05/04/19 18 05/05/2017 CMP, serum or plasm a chloride, serum 100 mmol/ L 96-106 Not Available [facility] ([facility]) [address] [place], [address], 05/05/2017 08:41:27 05/04/19 18 05/05/2017 CMP, serum or plasm a carbon dioxide, total 24 mmol/ L 18-29 Not Available [facility] ([facility]) [address] [place], [address], 05/05/2017 08:41:27 05/04/1905/05/2017 CMP, serum or plasm a calcium, serum 9.8 mg/dL 8.7-10 .2 Not Available [facility] ([facility]) [address] [place], [address], 05/05/2017 08:41:27 05/04/1905/05/2017 CMP, serum or plasm a protein, total, serum 7.5 g/dL 6.0-8. 5 Not Available [facility] ([facility]) [address] [place], [address], 05/05/2017 08:41:27 05/04/19 18 05/05/2017 CMP, serum or plasm a albumin, serum 4.5 g/dL 3.5-5. 5 Not Available [facility] ([facility]) [address] [facility] [place], [address], 05/05/2017 08:41:27 05/04/19 18 05/05/2017 CMP, serum or plasm a globulin, total 3.0 g/dL 1.5-4. 5 Not Available [facility] ([facility]) [address] [facility] [place], [address], 05/05/2017 08:41:27 05/04/19 18 05/05/2017 CMP, serum or plasm a A/G ratio 1.5 1.2-2. 2 Not Available [facility] ([facility]) [address] [place], [address], 05/05/2017 08:41:27 05/04/19 18 05/05/2017 CMP, serum or plasm a bilirubin, total 0.2 mg/dL 0.0-1. 2 Not Available [facility] ([facility]) [address] [place], [address], 05/05/2017 08:41:27 05/04/19 18 05/05/2017 CMP, serum or plasm a alkaline phosphatase, S 83 IU/L 39-117 Not Available [facility] ([facility]) [address] [place], [address], 05/05/2017 08:41:27 05/04/19 18 05/05/2017 CMP, serum or plasm a AST (SGOT) 18 IU/L 0-40 Not Available [facility] ([facility]) [address] [place], [address], 05/05/2017 08:41:27 05/04/19 18 05/05/2017 CMP, serum or plasm a ALT (SGPT) 16 IU/L 0-32 Not Available [facility] ([facility]) [address] [facility], [place], [address], 05/05/2017 08:41:27 05/04/19 18 05/05/2017 urina lysis compl ete, refle x cultu re specific gravity 1.022 1.005- 1.030 Not Available [facility] ([facility]) [address] [facility], [place], [address], 05/05/2017 08:41:27 05/04/19 18 05/05/2017 urina lysis compl ete, refle x cultu re pH 5.5 5.0-7. 5 Not Available [facility] ([facility]) [address] [facility], [place], [address], 05/05/2017 08:41:27 05/04/19 18 05/05/2017 urina lysis compl ete, refle x cultu re urine-color YELLOW yellow Not Available [facility] ([facility]) [address] [facility], [place], [address], 05/05/2017 08:41:27 05/04/19 18 05/05/2017 urina lysis compl ete, refle x cultu re appearance CLEAR clear Not Available [facility] ([facility]) [address] [facility], [place], [address], 05/05/2017 08:41:27 05/04/19 18 05/05/2017 urina lysis compl ete, refle x cultu re WBC esterase NEGATI VE negati ve Not Available [facility] ([facility]) [address] [facility], [place], [address], 05/05/2017 08:41:27 05/04/19 18 05/05/2017 urina lysis compl ete, refle x cultu re protein NEGATI VE negati ve/tra ce Not Available [facility] ([facility]) [address] [place], [address], 05/05/2017 08:41:27 05/04/19 18 05/05/2017 urina lysis compl ete, refle x cultu re glucose NEGATI VE negati ve Not Available [facility] ([facility]) [address] [place], [address], 05/05/2017 08:41:27 05/04/19 18 05/05/2017 urina lysis compl ete, refle x cultu re ketones NEGATI VE negati ve Not Available [facility] ([facility]) [address] [place], [address], 05/05/2017 08:41:27 05/04/19 18 05/05/2017 urina lysis compl ete, refle x cultu re occult blood NEGATI VE negati ve Not Available [facility] ([facility]) [address] [place], [address], 05/05/2017 08:41:27 05/04/19 18 05/05/2017 urina lysis compl ete, refle x cultu re bilirubin NEGATI VE negati ve Not Available [facility] ([facility]) [address] [place], [address], 05/05/2017 08:41:27 05/04/19 18 05/05/2017 urina lysis compl ete, refle x cultu re urobilinogen ,semi-qn 0.2 mg/dL 0.2-1. 0 Not Available [facility] ([facility]) [address] [place], [address], 05/05/2017 08:41:27 05/04/19 18 05/05/2017 urina lysis compl ete, refle x cultu re nitrite, urine NEGATI VE negati ve Not Available [facility] ([facility]) [address] [place], [address], 05/05/2017 08:41:27 05/04/19 18 05/05/2017 urina lysis compl ete, refle x cultu re microscopic examination COMMEN T Micro scopi c follo ws if indic ated. Not Available [facility] ([facility]) [address] [facility], [place], [address], 05/05/2017 08:41:27 05/04/19 18 05/05/2017 urina lysis compl ete, refle x cultu re microscopic examination SEE BELOW: Micro scopi c was indic ated and was perfo rmed. Not Available [facility] ([facility]) [address] [facility], [place], [address], 05/05/2017 08:41:27 05/04/19 18 05/05/2017 urina lysis compl ete, refle x cultu re WBC 0-5 /hpf 0 - 5 Not Available [facility] ([facility]) [address] [facility], [place], [address], 05/05/2017 08:41:27 05/04/19 18 05/05/2017 urina lysis compl ete, refle x cultu re RBC 0-2 /hpf 0 - 2 Not Available [facility] ([facility]) [address] [facility], [place], [address], 05/05/2017 08:41:27 05/04/19 18 05/05/2017 urina lysis compl ete, refle x cultu re epithelial cells (non renal) 0-10 /hpf 0 - 10 Not Available [facility] ([facility]) [address] [facility], [place], [address], 05/05/2017 08:41:27 05/04/19 18 05/05/2017 urina lysis compl ete, refle x cultu re epithelial cells (renal) ASSET PROTECTION ASSISTANT Not Available [facility] ([facility]) [address] [place], [address], 05/05/2017 08:41:27 05/04/19 18 05/05/2017 urina lysis compl ete, refle x cultu re casts ASSET PROTECTION ASSISTANT Not Available [facility] ([facility]) [address] [facility], [place], [address], 05/05/2017 08:41:27 05/04/19 18 05/05/2017 urina lysis compl ete, refle x cultu re cast type ASSET PROTECTION ASSISTANT Not Available [facility] ([facility]) [address] [facility], [place], [address], 05/05/2017 08:41:27 05/04/19 18 05/05/2017 urina lysis compl ete, refle x cultu re crystals ASSET PROTECTION ASSISTANT Not Available [facility] ([facility]) [address] [facility], [place], [address], 05/05/2017 08:41:27 05/04/19 18 05/05/2017 urina lysis compl ete, refle x cultu re crystal type ASSET PROTECTION ASSISTANT Not Available [facility]) [address] [facility], [place], [address], 05/05/2017 08:41:27 05/04/19 18 05/05/2017 urina lysis compl ete, refle x cultu re mucus threads PRESEN T not estab. Not Available [facility] ([facility]) [address] [facility], [place], [address], 05/05/2017 08:41:27 05/04/19 18 05/05/2017 urina lysis compl ete, refle x cultu re bacteria NONE SEEN none seen/f ew Not Available [facility] ([facility]) [address] [facility], [place], [address], 05/05/2017 08:41:27 05/04/19 18 05/05/2017 urina lysis compl ete, refle x cultu re yeast ASSET PROTECTION ASSISTANT Not Available [facility] ([facility]) [address] [facility], [place], [address], 05/05/2017 08:41:27 05/04/19 18 05/05/2017 urina lysis compl ete, refle x cultu re trichomonas ASSET PROTECTION ASSISTANT Not Available [facility] ([facility]) [address] [facility], [place], [address], 05/05/2017 08:41:27 05/04/19 18 05/05/2017 urina lysis compl ete, refle x cultu re comment ASSET PROTECTION ASSISTANT Not Available [facility] ([facility]) [address] [facility], [place], [address], 05/05/2017 08:41:27 05/04/19 18 05/05/2017 urina lysis compl ete, refle x cultu re urinalysis reflex COMMEN T This speci men will not refle x to a Urine Cultu re. Not Available [facility] ([facility]) [address] [facility], [place], [address], 05/05/2017 08:41:27 05/04/19 18 05/05/2017 lipid panel , serum cholesterol, total 202 mg/dL 100-19 9 above high normal Not Available [facility] ([facility]) [address] [place], [address], 05/05/2017 08:41:28 05/04/19 18 05/05/2017 lipid panel , serum triglyceride s 98 mg/dL 0-149 Not Available [facility] ([facility]) [address] [place], [address], 05/05/2017 08:41:28 05/04/19 18 05/05/2017 lipid panel , serum HDL cholesterol 54 mg/dL >39 Not Available [facility]) [address] [place], [address], 05/05/2017 08:41:28 05/04/19 18 05/05/2017 lipid panel , serum VLDL cholesterol daryl 20 mg/dL 5-40 Not Available [facility] ([facility]) [address] [place], [address], 05/05/2017 08:41:28 05/04/19 18 05/05/2017 lipid panel , serum LDL cholesterol calc 128 mg/dL 0-99 above high normal Not Available [facility] ([facility]) [address] [place], [address], 05/05/2017 08:41:28 05/04/19 18 05/05/2017 lipid panel , serum comment: ASSET PROTECTION ASSISTANT Not Available [facility] ([facility]) [address] [facility], [place], [address], 05/05/2017 08:41:28 05/04/19 18 05/05/2017 vitam in B12 + folat e, serum or blood vitamin B12 655 pg/mL 232-12 45 Not Available [facility] ([facility]) [address] [facility], [place], [address], 05/05/2017 08:41:29 05/04/19 18 05/05/2017 vitam in B12 + folat e, serum or blood folate (folic acid), serum 17.4 NG/mL >3.0 A serum folat e tristan ntrat ion of less than 3.1 ng/mL is consi dered to repre sent clini daryl defic iency . Not Available [facility] ([facility]) [address] [facility], [place], [address], 05/05/2017 08:41:29 05/04/19 18 05/05/2017 HbA1c (hemo globi n A1c), blood hemoglobin A1C 5.9 % 4.8-5. 6 above high normal Pre-d iabet es: 5.7 - 6.4 Diabe jens: >6.4 Glyce guy contr ol for adult s with diabe jesn: <7.0 Not Available [facility] ([facility]) [address] [place], [address], 05/05/2017 08:41:30 05/04/19 18 05/05/2017 vitam in [...] Endoc rine Socie ty [facility] er defin e vitam in D insuf ficie ncy as a level betwe en 21 and 29 ng/mL (2). 1. IOM (Inst itute of Medic ine). 2009. Dieta ry refer ence intak es for calci um and D. Hiram bundy [place]: [facility] Press . 2. William rausch MF, Connor worthy [place], Malachi off-F jake i MOHAMUD, et al. Evalu ation , treat ment, and preve ntion of vitam in D defic iency : an Endoc rine Socie ty clini daryl pract ice guide line. JCEM. 2010; 96(7) :1911 -30. Not Available [facility] ([facility]) [address] [facility], [place], [address], 05/05/2017 08:41:31 05/04/19 18 05/04/2017 CMP, serum [...] ciate your busin ess. Not Available [facility] ([facility]) [address] [facility], [place], [address], 05/05/2017 08:41:31 05/04/19 18 05/04/2017 lipid panel [...] ciate your busin ess. Not Available [facility] ([facility]) [address] [facility], [place], [address], 05/05/2017 08:41:32 06/08/19 18 06/10/2017 pap, IG + refle x HR HPV (16+1 8) HPV, high-risk Positi ve negati ve abnormal This high- risk HPV test detec ts thirt een high- risk types (16/1 8/31/ 33/35 /39/4 5/51/ 52/56 /58/5 9/68) witho ut diffe renti ation . Not Available [facility] ([facility]) [address] [facility], [place], [address], 06/17/2017 13:38:07 06/08/19 18 06/11/2017 pap, IG + refle x HR HPV (16+1 8) diagnosis: Commen t NEGAT YARIEL FOR INTRA EPITH ELIAL AMALIA Jurado AND KARLA HACKETT . Not Available [facility] ([facility]) [address] [facility], [place], [address], 06/17/2017 13:38:07 06/08/19 18 06/11/2017 pap, IG + refle x HR HPV (16+1 8) specimen adequacy: Waqas caballero Satis facto ry for evalu ation . Not Available [facility] ([facility]) [address] [place], [address], 06/17/2017 13:38:07 06/08/19 18 06/11/2017 pap, IG + refle x HR HPV (16+1 8) clinician provided ICD10: Waqas caballero Z01.4 19 Not Available [facility] ([facility]) [address] [place], [address], 06/17/2017 13:38:07 06/08/19 18 06/11/2017 pap, IG + refle x HR HPV (16+1 8) performed by: Waqas Jones ns, Cytot jb caballero (ASCP ) Not Available [facility] ([facility]) [address] [place], [address], 06/17/2017 13:38:07 06/08/19 18 06/11/2017 pap, IG + refle x HR HPV (16+1 8) . . Not Available [facility] ([facility]) [address] [place], [address], 06/17/2017 13:38:07 06/08/19 18 06/11/2017 pap, IG [...] ts do occur . Not Available [facility] ([facility]) [address] [place], [address], 06/17/2017 13:38:07 06/08/19 18 06/11/2017 pap, IG + refle x HR HPV (16+1 8) test methodology: Commen t This liqui d based ThinP rep(R ) pap test was richelle landa with the use of an image guide radha little Not Available [facility] ([facility]) [address] [facility], [place], [address], 06/17/2017 13:38:07 06/08/19 18 06/17/2017 pap, IG + refle x HR HPV (16+1 8) HPV genotype, 16 Negati ve negati ve Not Available [facility] ([facility]) [address] [facility], [place], [address], 06/17/2017 13:38:07 06/08/19 18 06/17/2017 pap, IG + refle x HR HPV (16+1 8) HPV genotype, 18 Negati ve negati ve Not Available [facility] ([facility]) [address] [facility], [place], [address], 06/17/2017 13:38:07 01/06/20 18 01/05/2018 elect russ castellongr am ECG Not Available [facility] [address] [facility], [place], [address], 01/04/2018 16:09:11 06/01/19 18 06/01/2017 MAMMO , richelle muñoz, digit al, bilat eral No observ ation record ed. [address] [facility] [address], [place], [address], 12/27/2017 18:33:21 06/01/19 18 06/01/2017 bone densi ty No observ ation record ed. [id number] [facility] [address], [place], [address], 12/27/2017 18:35:07 01/05/20 18 elect rocar diogr [...] Organization Details Recorded Time 8 Mammogram completed [employer] [facility] [employer] [facility] 12/27/2017 18:35:05 1 [facility] [employer] [facility] 02/03/2017 09:09:01 PAP completed [facility] 12/27/2017 18:38:31 Dexascan completed Margarita Avery [facility] 12/27/2017 18:34:43 Colonoscopy completed [facility] [employer] [facility] 12/27/2017 18:40:46 Imaging Results Imaging Date Name Status LastModified by Organization Details LastModified Time 06/01/2017 MAMMO, screening, digital, bilateral completed [address] [facility] [address], [place], [address], 12/27/2017 18:33:21 06/01/2017 bone density completed [address] [facility] [address], [place], [address], 12/27/2017 18:35:07 01/04/2018 electrocardiogram completed allyson [employer] [...] Updated DateTime 7 162.56 cm 31.6 kg/m2 41700 g 72 /min 98 % 98 % 18 /min 96.4 [degF] 120 mm[Hg] 80 mm[Hg] [facility] [employer] [facility] 7 09:05:08 Date Recorded Body height Body mass index (BMI) Body weight Heart rate Oxygen saturation Oxygen saturation in Arterial blood by Pulse oximetry Respiratory rate Body temperature Systolic blood pressure Diastolic blood pressure Provider Name and Address Organization Details Last Updated DateTime 8 162.56 cm 30.2 kg/m2 90370.2 6 g 78 /min 99 % 99 % 18 /min 97.1 [degF] 138 mm[Hg] 80 mm[Hg] [facility] [employer] [facility] 8 14:08:25 Date Recorded Body height Body mass index (BMI) Body weight Heart rate Oxygen saturation Oxygen saturation in Arterial blood by Pulse oximetry Respiratory rate Body temperature Systolic blood pressure Diastolic blood pressure Provider Name and Address Organization Details Last Updated DateTime 8 162.56 cm 30 kg/m2 94147.6 6 g 83 /min 99 % 99 % 15 /min 95.2 [degF] 128 mm[Hg] 78 mm[Hg] mariah early [facility] [employer] [facility] 8 07:35:33 Date Recorded Body height Body [...] Updated DateTime 8 162.56 cm 32.4 kg/m2 65937.9 6 g 76 /min 98 % 98 % 15 /min 98 [degF] 83 /min 84 /min 81 /min 130 mm[Hg] 80 mm[Hg] 142 mm[Hg] 78 mm[Hg] 162 mm[Hg] 110 mm[Hg] 170 mm[Hg] 102 mm[Hg] [facility] 16:22:39 Social History Question Answer Notes LastModified by Organizat ion Details LastModified Time Tobacco Smoking Status Never Smoker [facility] 02/03/2017 09:07:08 What Is Your Level Of [...] SNOMED-CT Code Diagnosis ICD10 Code Diagnosis Note [id number] Merle Joshi OFFICE [address] [place] [address] 02/03/2017 08:57:57 02/03/2017 09:57:45 Adult health examination 029250698 Z00.00 Pt was last seen by PCP, Dr. Vieyra Name at [facility] in [facility] ? 6 years ago. We will manage pt based on the informatio n provided on this visit Will request records from: -PCP,Dr. Vieyra Name [facility]? [facility]? History of appendectomy 936805307 Z90.49 in 2010 Chronic constipation 236 407111 K59.09 Pt admits to having constipati on for years. Stable on OTC stool softer (Dulcolax) ? and high fiber diet Screening mammography 24 366898 Z12.31 Last mammogram 6-7 years ago -will update Screening for malignant neoplasm of colon 770948480 Z12.11 Last colonoscop y normal 7 years ago per pt's report Body mass index 30+ - obesity 306509619 Z68.31 [id number] Tio Mcdonald MD OFFICE [address] [place] [address] 05/25/2017 13:52:03 05/25/2017 14:34:43 Hyperglycemia 69570542 R73.9 Per new labs 04/2017: FBS 117, A1C 5.7 Family h/o DM. Plan: - Diet - f/u Hyperkalemia 04216543 E8 7.5 Mild per new labs 04/2017: K 5.3 Not on nay Rx. Advice on low K diet and f/u Vitamin D deficiency 347 49501 E55.9 05/04/2017: D 23 Plan: Megadose and base line DXA. Screening mammography 24 241355 Z12.31 Last > 2 yrs ago, out state. Screening for malignant neoplasm of cervix 329361299 Z12.4 will schedule. Screening for malignant neoplasm of colon 511407411 Z12.11 Report normal Colonoscop y > 10 yrs ago. Will update. Chronic constipation 236 256172 K59.09 advice on combine Rx. Body mass index 30+ - obesity 456431279 Z68.39 BMI 30.2 [id number] Merle Joshi OFFICE [address] [place] [address] 06/08/2017 07:15:45 06/08/2017 08:00:31 Gynecologic examination 50394172 Z01.419 No abnormalit ies noted on breast or pelvic exam -will update next year [id number] JULY DANA MALONEY OFFICE [address] [place] [address] 01/04/2018 15:39:32 01/04/2018 16:50:42 Dizziness 392889001 R42 Pt head episode of vertigo ( see above). No dizziness upon standing - however, we did check orthostati c BP Supine 142/78; sitting 162/110, standing 170/102 Electrocar diogram abnormal 473111730 R94.31 EKG today- NSR - negative precordial t waves HR 69 Benign par oxysmal positional vertigo 195139235 H81.11 Last week - woke up in the morning and experience d vertigo when turning over to the right side and with sharp head turns. This lasted 3 days and then resolved completely . She is currently asymptomat ic Elevated blood-pressure reading without diagnosis of hypertension 333720678 R03.0 Today BP 130/80 ( also 162/110 when getting orthostati cs) EKG today- NSR - negative precordial t waves HR 69 Plan Advised low sodium diet Keep BP log for 2 weeks and will review to determine further management Abnormal v aginal Papanicolaou smear 553698960 R87.[address] Cali on [...] Member ID Guarantor Name 02/03/2017 1 UMR [id number] Amna Aldo [id number] Amna Aldo 05/25/2017 1 UMR [id number] Amna Aldo [id number] Amna Aldo 06/08/2017 1 UMR [id number] Amna Aldo [id number] Amna Aldo 01/04/2018 1 UMR [id number] Amna Aldo [id number] Amna Aldo Notes Date Note Type Note Provider Name and Address Organization Details Recorded Time 02/03/2017 text/html 57 yo female presents to establish as a new patient Merle Joshi tien [place] [employer] [facility] 02/03/2017 09:52:59 05/25/2017 text/html Seen on 2do visit to our practice. Tio Mcdonald MD [address], [place], [address], [facility] [employer] [facility] 05/25/2017 14:30:50 06/08/2017 text/html presents for annual [employer] Merle chauhan [facility] [employer], [facility] 06/08/2017 07:59:52 01/04/2018 text/html Pt complains of elevated blood pressure last week. Headache and dIzziness last week when turning over bed to right side and with sharp head turns. This has since improved. Pt states BP was 147/84 at home - JULY DANA MALONEY [address], [place], [address], [facility] [employer] [facility] 01/04/2018 16:47:08 OBGyn Episode No OBEpisode recorded.
--- OUTSIDE RECORDS SUMMARY | 2024-07-09 16:06 | XMS_ITS | Encounter Summary ---
Author Organization [facility] Address [address] [place] [id number] Care Team Providers Care Shake Out Worker Name Role Phone Luly Arreola [facility] Primary Care Provider [phone] Reason for Visit * Consultation (Routine) - Authorized Specialty Diagnoses / Procedures Referred By Maude t Referred To Contact Pharmacy Diagnoses Primary hypertension [facility] [address] [place] [address] Phone: tel: fax: Referral ID Status Reason Start Date Expiration Date Visits Requested Visits Authorized [id number] Authorized Continuity of Care 03/28/2024 03/28/2025 6 6 Encounter Details Date Type Department Care Team (Latest Contact Info) Description 06/14/2024 9:00 AM EST Clinical Support [facility] [address] [place] [address] Iker Collins, PharmD [address] [place] [address] Primary hypertension (Primary Dx); Mixed hyperlipidemia Social History Tobacco Use Types Packs/Day Years [...] Progress Notes * Iker Collins PharmD - 06/14/2024 9:00 AM EST Pharmacy Consult Visit Type: MTM Visit Pharmacist: Iker Collins PharmD Referral Diagnosis: HTN Referral Expiration: 03/28/25 Referring Provider: [facility] Recommendations for Provider: Please consider ordering FLP and LFTs in 4-12 weeks following recent dose increase of rosuvastatin in order to assess safety and efficacy of statin therapy. Note - increased dose of rosuvastatin 20 mg first picked up on 05/30/24 Since patient receives monthly medboxes, please contact medbox pharmacist with any medication changes (initiations, discontinuation, dose adjustments) Background/ Visit Intake Amna Carlson is a 64 y.o. patient here for a follow-up visit. Visit completed over the phone. Allergies: is allergic to poe and peach [prunus persica]. Preferred Pharmacy: [facility] [address] [facility] [address] [facility] [address] Medbox: Yes, last medbox on 05/30/24 . Assessment & Plan Adherence: History: Adherence: Medication Organization: Uses medboxes from [facility] pharmacy Patient reports satisfaction with medbox program. Missed doses: Denies missed doses Patient reports adherence to medbox medications and to Linzess (outside of medbox). Patient previously reported use of Linzess as needed, however has since begun taking daily and reports adequate effectiveness with use. Read/Write: Yes, in Indonesian & Slovenian Goals of therapy: Improve adherence & minimize missed doses (<2 missed doses/week) Recommendations/Monitoring: Since patient receives monthly medboxes, please contact medbox pharmacist with any medication changes (initiations, discontinuation, dose adjustments) Hypertension: Pharmacologic Therapy: Amlodipine 10 mg once daily History: Patient reported experiencing dizziness while taking their amlodipine and metronidazole (acute - filled 06/01/24 x 7ds). Patient endorsed that since the course of antibiotics has been completed, they no longer experiencedizziness. Pertinent negatives include chest pain, head ache, blurry vision. Patient reported the following SMBP values: Date Blood pressure (mmHg) 06/13/24 130/81 06/12/24 132/80 06/11/24 135/80 06/10/24 127/79 06/09/24 117/75 06/08/24 129/76 Recent Blood Pressure values: BP Readings from Last 4 Encounters: 06/06/24 (!) 163/85 05/23/24 (!) 159/84 03/21/24 (!) 150/88 02/23/24 118/74 Pulse Readings from Last 4 Encounters: 06/06/24 64 05/23/24 95 03/21/24 93 09/21/23 60 Lab monitoring Lab Results Component Value Date NA 138 05/23/2024 K 4.3 05/23/2024 CREATININE 0.93 05/23/2024 EGFR >60 05/23/2024 Goals of Therapy per JNC 8: Achieve & maintain BP <140/90mmHg Plan: Upon review of SMBP, BP is at goal of <140/90 mmHg. Continue current regimen as directed. Continue SMBP and log results. Education: Counseling provided to SMBP & log results for review in follow up. Reviewed BP goals, patient instructed to call office if extremes of BP are noted prior to follow up. ASCVD Risk Pharmacologic Therapy: Rosuvastatin 20 mg by mouth once daily History: Rosuvastatin 10 mg increased to 20 mg as of 04/30/24 - however picked up 05/30/24 Patient endorsed initially experiencing myalgias following recent dose increase, however reported that the myalgias have lessened now and does not bother them. Lab monitoring: Lab Results Component Value Date CHOL 206 (H) 09/21/2023 LDLCHOLCAL 129 (H) 09/21/2023 HDL 50 09/21/2023 TRIG 139 09/21/2023 AST 17 05/12/2023 ALT 15 05/12/2023 The 10-year ASCVD risk score (Joyce HART, et al., 2019) is: 9.3% Values used to calculate the score: Age: 64 years Sex: Female Is Non- : No Diabetic: No Tobacco smoker: No Systolic Blood Pressure: 163 mmHg Is BP treated: No HDL Cholesterol: 50 mg/dL Total Cholesterol: 206 mg/dL Goals of Therapy: ACC/AHA 2018 Cholesterol Guidelines: Ensure evidence based and safe use of medications for primary prevention of ASCVD. Plan: Please consider ordering FLP and LFTs in 4-12 weeks following recent dose increase of rosuvastatin in order to assess safety and efficacy of statin therapy. Note - increased dose of rosuvastatin 20 mg first picked up on 05/30/24 Decreased GFR (stage 2 (eGFR 60-89)) Pharmacologic Therapy: None Labs monitoring: Lab Results Component Value Date EGFR >60 05/23/2024 EGFR 54 05/12/2023 CREATININE 0.93 05/23/2024 CREATININE 1.03 05/12/2023 CrCl (AdjBW) = 65.2 mL/min as of 05/23/24 Goals of Therapy: Ensure safe & appropriate medication use in the setting of declining renal function. Plan: Pharmacist reviewed current medications for renal dose adjustments, none required at this time. Immunizations History: Immunization History Administered Date(s) Administered INFLUENZA INJECTABLE QUADRIVALANT CCIIV4 MDCK Multi-dose vial 04/05/2019 Influenza, IIV3, injectable 02/25/2012, 01/19/2023 Moderna Covid-19 Vaccine 12+ 06/24/2020, 07/22/2020 Pfizer Covid-19 Vaccine 12+ 05/11/2023 Tdap 06/18/2008, 01/18/2019 Zoster, Recombinant 01/18/2019, 04/05/2019 Goals of therapy: Ensure patient is up to date per the CDC Adult Immunization Schedule. Assessment/Plan: Influenza 8478-1436 vaccine: Due . Next dose due annually. COVID-19 0838-5009 vaccine: Up-to-date . Next dose due annually. Hepatitis B series (Age 60+ without known risk factors): Not indicated . Pneumococcal vaccines (Age >65): Due Shingrix series (age > 50 ): Up-to-date Td/TDaP (within the past 10 years): Up-to-date . Next dose due every 10 years. Plan: Patient interested in receiving Flu and PCV20 vaccines at this time. Appointment scheduled at [facility] for 06/18/24. Education: Indication of all recommended/administered vaccines Patient Action Plan Reviewed today with plan to revisit at follow up in 6 months for SMBP review. Continue to adhere to medication with assistance of medbox program Monitor blood pressure once daily and log results Attend vaccine appointment at [facility] pharmacy on 06/18/24 documented in this encounter Plan of Treatment Upcoming Encounters Date Type Department Care Team (Late st Contact Info) Description 08/22/2024 2:00 PM EDT Office Visit [facility] [address] [place] [address] Luly Arreola FNP [address] [place] [address] documented as of this encounter Visit Diagnoses Diagnosis Primary hypertension- Primary Unspecified essential hypertension Mixed hyperlipidemia documented in this encounter Additional Health Concerns Assessment Noted Time PHQ-9 Depression Total Score: 18 024 10:12 AM EST documented as of this encounter Care Teams Shake Out Worker Relationship Specialty Start Date End Date Luly Arreola FNP [address] [place] [address] PCP - General Family Medicine 12/17/21 documented as of this encounter
--- OUTSIDE RECORDS SUMMARY | 2024-07-09 16:06 | XMS_ITS | Encounter Summary ---
Author Organization [employer] Address [address] [facility] [address] [place] [address] Care Team Providers Care Healthcare Administration Intern Name Role Phone Luly Arreola [facility] Primary Care Provider [phone] Reason for Visit * Reason Onset Date Comments rs appt 02/23/2023 Encounter Details Date Type Department Care Team ([facility] st Contact Info) Description 02/23/2023 Telephone [facility] [address] [place] [address] Greg Beltran, DMD [address] [place] [address] rs appt Social History Tobacco Use Types [...] Description 08/22/2024 2:00 PM EDT Office Visit [facility] [address] [place] [address] Luly Arreola FNP [address] [place] [address] documented as of this encounter Visit Diagnoses Not on filedocumented in this encounter Additional Health Concerns Assessment Noted Time PHQ-9 Depression Total Score: 19 023 10:40 AM EDT documented as of this encounter Care Teams Healthcare Administration Intern Relationship Specialty Start Date End Date Luly Arreola FNP [address] [place] [address] PCP - General Family Medicine 12/17/21 documented as of this encounter
== END 2024-07-09 13:48 | disposition home or self-care (01) ==
LOC: HO.MAMMO 13:47
PROVIDERS: PCP Registered Nurse; Visit Provider Registered Nurse
DX: Z12.31 Encounter for screening mammogram for malignant neoplasm of breast (principal)
CPT/HCPCS: 77063; 77067

== ENCOUNTER → 2024-07-09 14:00 | Outpatient (BNV) | payer MEDICARE, MEDICAID, SELFPAY | PROVIDERS: PCP Registered Nurse; Visit Provider Internal Medicine | DX: Z12.31 Encounter for screening mammogram for malignant neoplasm of breast (principal) | CPT/HCPCS: 77063; 77067 ==